=== PATIENT | male | born 1955 | race African-American/Black ===

== ENCOUNTER 2016-07-22 08:14 | Day surgery (SDC) | payer OTHER ==
[2016-07-21 10:47] VITALS: BMI 37.4
[2016-07-22] MEDS ORDERED: PROPOFOL 20 ML ONE ×2 (10:55→10:57)
[2016-07-22] MEDS ORDERED: ceFAZolin SODIUM 1 GM VIAL IVPB ONE (11:10)
[2016-07-22] MEDS ORDERED: ceFAZolin SODIUM 1 GM VIAL ONE (11:17)
[2016-07-22] MEDS ORDERED: LIDOCAINE HCL/PF 2% SDV 5ML VIAL ONE (11:22)
[2016-07-22] MEDS ORDERED: ePHEDrine SULFATE 50 MG/1 ML AMPULE ONE (11:30)
[2016-07-22] MEDS ORDERED: NEOSTIGMINE METHYLSULFATE 0.5 MG/ML - 10 ML MDV ONE (11:44)
[2016-07-22] MEDS ORDERED: oxyCODONE HCL 5 MG TABLET PO PRN (11:50)
--- NOTE | 2016-07-22 11:50 | OP ---
Operative Note - Note: Operative Date: 07/22/16 Pre-Operative Diagnosis: bladder tumor Operation: TURBT Post-Operative Diagnosis: Same as Pre-op Surgeon: Ulisses Zapata Anesthesia: General Specimens Removed: bladder tumor Estimated Blood Loss (mls): 2 Drains & Tubes with Location: 18fr whipple Operative Report Dictated: Yes
[2016-07-22] MEDS ORDERED: ELECTROLYTE-148 SOLN 1,000 ML IV SCH (12:00)
[2016-07-22] MEDS ORDERED: ONDANSETRON 4 MG/2 ML VIAL IVPUSH PRN (12:11)
[2016-07-22] MEDS ORDERED: ACETAMINOPHEN 1000 MG/100 ML VIAL (NON FORMULARY) IVPB ONE (12:12)
[2016-07-22] MEDS ORDERED: LACTATED RINGERS SOLUTION 1,000 ML IV SCH (12:15)
--- NOTE | 2016-07-22 13:26 | OP ---
DATE OF OPERATION: 07/22/2016 PREOPERATIVE DIAGNOSIS: Bladder tumor. POSTOPERATIVE DIAGNOSIS: Bladder tumor. PROCEDURE: Transurethral resection of bladder tumor. 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 Most recent surveillance cystoscopy revealed evidence of bladder tumor recurrence. He was taken to the OR for resection. DESCRIPTION OF PROCEDURE: Patient was taken to the OR, placed supine on the operating table. After cardiac monitoring was administered and general anesthesia established, he was prepped and draped in dorsal lithotomy position. The 26-sheath resectoscope was inserted into the urethra with the visual obturator. Anterior urethra was normal. Prostatic urethra was 3 cm and visually occlusive. The bladder was then entered. There was a rim of erythematous tissue consistent with prior history of CS. At the dome of the bladder encircling what looked like a bladder diverticulum, this tissue was resected in its entirety and then fulgurated until no other areas of erythema were noted. No other lesions were noted. Bilateral ureteral orifices were seen and in normal anatomic position. Resectoscope was then removed, and an 18-Nigerien Barrios was then placed to straight drainage. Clear urine was then retrieved. Patient was awoken from anesthesia and transferred to recovery room in stable condition. There were no complications. Estimated blood loss was minimal. ZITA NUNEZ M.D. [id number]
[2016-07-22 14:02] VITALS: TEMP 98.4
[2016-07-22 14:27] VITALS: PULSE 60
[2016-07-22] MEDS ORDERED: oxyCODONE HCL 5 MG TABLET PO ONE (14:30)
[2016-07-22] MEDS ORDERED: oxyCODONE HCL 5 MG TABLET ONE (14:34)
[2016-07-22 16:33] VITALS: BP 147/74
--- NOTE | 2016-07-26 09:07 | PATH ---
Surgical Pathology Report Patient Name: LIAT GARDUNO [facility]. Rec. #: [id number] /Age/Gender: 1955 (Age: 61) / M Account: [id number] Location: [facility] SURGICAL Taken: 07/22/2016 Received: 07/22/2016 Reported: 07/26/2016 Physicians: Ulisses Zapata M.D. Specimen(s) Received BLADDER TUMOR Clinical History Bladder cancer Transurethral resection of bladder tumor Final Diagnosis BLADDER, TUR: FOCAL FLAT UROTHELIAL CARCINOMA IN SITU ARISING IN A BACKGROUND OF ACUTE AND CHRONIC CYSTITIS WITH MARKED REACTIVE CHANGES AND AREAS OF VASCULAR ECTASIA. NO INVASIVE CARCINOMA IDENTIFIED. Comment: Also see prior specimens [id number] and [id number]. Electronically Signed Ignacio Hoover M.D. Gross Description Received in formalin, labeled "bladder tumor" are 5 ruvalcaba, irregular portions of soft tissue measuring 0.1-0.3 cm. in greatest dimension. The specimens are submitted in toto in one cassette. [facility]/07/22/2016 [facility]/07/22/2016
== END 2016-07-22 15:30 | disposition home or self-care (01) ==
LOC: JASU-SURG 08:14
PROVIDERS: ATTEND Urology
PROC: 0T5B8ZZ Destruction of Bladder, Via Natural or Artificial Opening Endoscopic (ICD-10-PCS; principal; 2016-07-22 09:30)
DX: D09.0 Carcinoma in situ of bladder (principal); N30.20 Other chronic cystitis without hematuria
CPT/HCPCS: 88307-TC; 94760

== ENCOUNTER 2016-12-26 15:34 | Emergency (ER) | payer OTHER ==
[2016-12-26 15:45] VITALS: TEMP 98.5; BMI 36.3
--- NOTE | 2016-12-26 15:55 | PDOC ---
History of Present Illness <Nanci Sidhu - Last Filed: 12/26/16 17:41> - History of Present Illness Initial Comments: 61 year old male with PMH of diabetes and HTN presenting with nausea, abdominal cramping, and elevated blood sugar reading at home to 302. He states that he just woke up this morning feeling "kind of crappy" and had some generalized abdominal pains. He checked his blood sugar and it was 302 at home. He took his Insulin this morning per usual as well. He is on metformin and Lantus 30 every morning and metformin BID. Denies fevers, chills, cdiarrhea, constipation, chest pain, or other symptoms. 12/26/16 16:19 <Dav Armstrong - Last Filed: 12/26/16 18:26> <Clem Pope - Last Filed: 12/26/16 19:36> - General Chief Complaint: Blood Sugar Problem Stated Complaint: BLOOD SUGAR PROBLEM Time Seen by Provider: 12/26/16 15:53 Past History <Nanci Sidhu - Last Filed: 12/26/16 17:41> - Past Medical History Anemia: No Asthma: No Cancer: Yes (bladder) Cardiac Disorders: No CVA: No COPD: No CHF: No Dementia: No Diabetes: Yes (IDDM X 3-4 YEARS) GI Disorders: No Disorders: No HTN: Yes Hypercholesterolemia: Yes Liver Disease: No Seizures: Yes ("YEARS AGO"-OVER 20 YEARS AGO HAD "EPILEPSY", WAS ON MEDS,NO LONGER) Thyroid Disease: No - Surgical History Abdominal Surgery: No Appendectomy: No Cardiac Surgery: No Cholecystectomy: No Lung Surgery: No Neurologic Surgery: No Orthopedic Surgery: Yes (r hip replacement) - Immunization History Immunization Up to Date: Yes - Psycho/Social/Smoking Cessation Hx Anxiety: No Suicidal Ideation: No Smoking History: Current every day smoker Have you smoked in the past 12 months: Yes Number of Cigarettes Smoked Daily: 3 Information on smoking cessation initiated: No 'Breaking Loose' booklet given: 04/08/16 Hx Alcohol Use: No Drug/Substance Use Hx: No Substance Use Type: None Hx Substance Use Treatment: No <Dav Armstrong - Last Filed: 12/26/16 18:26> <Clem Pope - Last Filed: 12/26/16 19:36> - Past Medical History Allergies/Adverse Reactions: Allergies Allergy/AdvReac Type Severity Reaction Status Date / Time No Known Drug Allergies Allergy Verified 12/26/16 15:41 Home Medications: Ambulatory Orders Amlodipine Besylate/Benazepril [Lotrel 5-20 mg Capsule] 1 each PO DAILY Glyburide/Metformin HCl [Glyburide-Metformin 2.5-500 mg] 1 each PO DAILY Insulin (Levemir) [Levemir Flexpen -] 30 units SQ DAILY 07/31/14 Metoprolol Tartrate [Lopressor] 50 mg PO DAILY 07/31/14 Simvastatin [Zocor -] 20 mg PO HS 07/31/14 Aspirin [ASA -] 81 mg PO DAILY@0800 11/02/15 Review of Systems - Review of Systems Constitutional: No: Chills, Diaphoresis, Fever HEENTM: No: Blurred Vision, Double Vision Respiratory: No: Shortness of Breath Cardiac (ROS): No: Chest Pain, Edema : No: Burning, Dysuria Musculoskeletal: No: Back Pain, Joint Pain Integumentary: No: Bruising, Change in Color Neurological: No: Headache <Dav Armstrong - Last Filed: 12/26/16 18:26> *Physical Exam - Vital Signs Last Vital Signs Temp Pulse Resp BP Pulse Ox 98.5 F 56 L 18 122/73 99 12/26/16 15:41 12/26/16 15:41 12/26/16 15:41 12/26/16 15:41 12/26/16 15:41 <Nanci Sidhu - Last Filed: 12/26/16 17:41> - Vital Signs Last Vital Signs Temp Pulse Resp BP Pulse Ox 98.5 F 56 L 18 122/73 99 12/26/16 15:41 12/26/16 15:41 12/26/16 15:41 12/26/16 15:41 12/26/16 15:41 - Physical Exam General Appearance: Yes: Nourished, Appropriately Dressed. No: Apparent Distress HEENT: positive: EOMI, EBONY, Normal ENT Inspection Neck: positive: Trachea midline, Normal Thyroid, Supple. negative: Tender, Rigid Respiratory/Chest: positive: Lungs Clear, Normal Breath Sounds. negative: Chest Tender, Respiratory Distress Cardiovascular: positive: Regular Rhythm, Regular Rate. negative: S1, S2, JVD, Murmur Gastrointestinal/Abdominal: positive: Normal Bowel Sounds, Tender (RUQ and Epigastric tenderness to deep palpation.), Flat, Soft Musculoskeletal: positive: Normal Inspection. negative: CVA Tenderness Integumentary: positive: Normal Color, Dry, Warm Neurologic: positive: Fully Oriented, Normal Mood/Affect, Motor Strength 5/5 <Dav Armstrong - Last Filed: 12/26/16 18:26> - Vital Signs Last Vital Signs Temp Pulse Resp BP Pulse Ox 98.5 F 56 L 18 122/73 99 12/26/16 15:41 12/26/16 15:41 12/26/16 15:41 12/26/16 15:41 12/26/16 15:41 <Clem Pope - Last Filed: 12/26/16 19:36> Procedures - Bedside Ultrasound Bedside Ultrasound: Gallbladder <Nanci Sidhu - Last Filed: 12/26/16 17:41> ED Treatment Course - LABORATORY CBC & Chemistry Diagram: 12/26/16 17:23 12/26/16 17:23 - ADDITIONAL ORDERS Additional order review: 12/26/16 17:23 RBC 4.63 MCV 88.5 MCHC 33.7 RDW 13.6 MPV 8.6 Neutrophils % 48.0 Lymphocytes % 34.4 Monocytes % 11.0 H Eosinophils % 5.6 H Basophils % 1.0 - Medications Given in the ED: ED Medications Discontinued Medications Generic Name Dose Route Start Last Admin Trade Name Freq PRN Reason Stop Dose Admin Sodium Chloride 1,000 ml 12/26/16 16:13 12/26/16 17:25 Normal Saline - IV 12/26/16 16:14 1,000 ml ONCE ONE Administration <Nanci Sidhu - Last Filed: 12/26/16 17:41> - LABORATORY CBC & Chemistry Diagram: 12/26/16 17:23 12/26/16 17:23 <Dav Armstrong - Last Filed: 12/26/16 18:26> - LABORATORY CBC & Chemistry Diagram: 12/26/16 17:23 12/26/16 17:23 - ADDITIONAL ORDERS Additional order review: Laboratory Results 12/26/16 12/26/16 18:50 17:23 Sodium 141 Potassium 4.0 Chloride 109 H Carbon Dioxide 26 Anion Gap 6 L BUN 14 Creatinine 1.3 Creat Clearance w eGFR 55.94 Random Glucose 208 H Calcium 9.0 Total Bilirubin 0.3 D AST 20 ALT 22 Alkaline Phosphatase 124 H Total Protein 6.8 Albumin 3.2 L Urine Color Yellow Urine Appearance Slcloudy Urine pH 5.0 Urine Protein 3+ H Urine Glucose (UA) 3+ H Urine Ketones Negative Urine Blood Negative Urine Nitrite Negative Urine Bilirubin Negative Urine Urobilinogen Negative Ur Leukocyte Esterase Negative Urine RBC 6 Urine WBC 4 Ur Epithelial Cells Rare Hyaline Casts 11 Urine Mucus Rare 12/26/16 17:23 RBC 4.63 MCV 88.5 MCHC 33.7 RDW 13.6 MPV 8.6 Neutrophils % 48.0 Lymphocytes % 34.4 Monocytes % 11.0 H Eosinophils % 5.6 H Basophils % 1.0 - Medications Given in the ED: ED Medications Discontinued Medications Generic Name Dose Route Start Last Admin Trade Name Freq PRN Reason Stop Dose Admin Sodium Chloride 1,000 ml 12/26/16 16:13 12/26/16 17:25 Normal Saline - IV 12/26/16 16:14 1,000 ml ONCE ONE Administration <Clem Pope - Last Filed: 12/26/16 19:36> Medical Decision Making - Medical Decision Making 12/26/16 17:40 focused ED ultrasound RUQ indication abd pain gallbladder scanned in two planes. no wall thickening or edema. contracted appearance. no stones. no pericholecystic fluid. neg sonographic singh's cbd measured 6.2mm wall measured 3.9mm impression: contracted gallbladder. josh/ BARBARA <Nanci Sidhu - Last Filed: 12/26/16 17:41> - Medical Decision Making 61 year old male with PMH of diabetes presenting with self reported sugar of 300, nausea and abdominal pain. Patient doesn't appear to have signs of DKA or HHS given exam and low reported glucose. Will verify glucose with CMP and draw CBC, lipase as well. Will give one liter and perform bedside US 12/26/16 19:23 Gluose only 200. UA pending. If UA clear, then can send home. NBedisde US not showing stones. Had a clear CT from a few weeks ago, so no need to repeat. Patient signed out to DR. Pope at 19:00 <Dav Armstrong - Last Filed: 12/26/16 18:26> *DC/Admit/Observation/Transfer <Nanci Sidhu - Last Filed: 12/26/16 17:41> - Discharge Dispostion Admit: No <Dav Armstrong - Last Filed: 12/26/16 18:26> - Discharge Dispostion Admit: No <Clem Pope - Last Filed: 12/26/16 19:36> Diagnosis at time of Disposition: Hyperglycemia, Lower abdominal pain - Discharge Dispostion Disposition: HOME Condition at time of disposition: Improved - Referrals Referrals: Kinjal Nolan [Primary Care Provider] - - Patient Instructions Printed Discharge Instructions: DI for Hyperglycemia -- Adult Additional Instructions: You were seen for high blood sugar, nausea and abdominal pain. We believe that your stomach was hurting because of the high blood sugar. Please make sure to take your insulin and avoid foods high in sugars. Please follow up with your PCP for adjustments to your insulin regimen if you continue to experience the same problems. Please return to the ED if you have the same symptoms, nausea, vomiting, diarrhea, or fevers.
[2016-12-26] MEDS ORDERED: SODIUM CHLORIDE 0.9% 1000 ML INFUS.BAG IV ONE (16:13)
--- NOTE | 2016-12-26 16:48 | PDOC ---
Attending Attestation - Resident Resident Name: Dav Armstrong - ED Attending Attestation I have performed the following: I have examined & evaluated the patient, The case was reviewed & discussed with the resident, I agree w/resident's findings & plan, Exceptions are as noted - Medical Decision Making 12/26/16 16:45 61 yo F M h/o bladder CA , and DM on insulin here wtih c/o abd pain, nausea, and high sugars. no f/c no vomiting. no urinary complaints. no flank pain. not sure why sugar high . was feeling off today so check sugar was elevated. no change to bm. last was today normal. on exam awake alert lungs clear heart rrr no mrg. abd soft RUQ ttp, RLQ ttp. no rebound no guarding no cva tenderness. differential: cholelithiasis, cholecystiis, pancreatitis gastritis, dehydration , dka hyperosmolar hyperglycemia. plan labs ivf, bedside us gb. possible ct ua. ekg <Nanci Sidhu - Last Filed: 12/26/16 16:45> - HPI HPI: 12/26/16 16:48 The Patient is a 61 yo male with a significant past medical history of HTN, hypolymphadema, and diabetes who presents to the ED with feeling of hyperglycemia. He reports nausea and chills but denies vomiting, fever, urinary problems and SOB. He states having compliant with insulin medication this morning. He denies any diet excursions with no other complaints. - Physicial Exam PE: 12/26/16 16:49 GENERAL: Awake, alert, and fully oriented, in no acute distress HEAD: No signs of trauma EYES: PERRLA, EOMI, sclera anicteric, conjunctiva clear ENT: Auricles normal inspection, nares patent, Moist mucosa NECK: Normal ROM, supple, no lymphadenopathy, JVD, or masses LUNGS: Breath sounds equal, clear to auscultation bilaterally. No wheezes, and no crackles HEART: Regular rate and rhythm, normal S1 and S2, no murmurs, rubs or gallops ABDOMEN: + RUQ tenderness, RLQ tenderness. No CVA tenderness Soft, nontender, normoactive bowel sounds. No guarding, no rebound. No masses No CVA tenderness. EXTREMITIES: Warm and well perfused. Normal range of motion, no edema. No clubbing or cyanosis. No cords, erythema, or tenderness NEUROLOGICAL: Normal speech SKIN: Warm, Dry, normal turgor, no rashes or lesions noted. - Medical Decision Making 12/26/16 16:49 Documentation prepared by Arthur Walter, acting as medical assisting program director for Nanci Sidhu MD. <Arthur Walter - Last Filed: 12/26/16 16:49>
[2016-12-26 17:28] LABS: EOSINOPHIL 5.6 % (0-4.5); MCH 29.8 pg (25.7-33.7); MCHC 33.7 g/dl (32.0-35.9); MEAN CELL VOLUME 88.5 fl (80-96); MEAN PLT VOLUME 8.6 fl (7.5-11.1); PLATELET COUNT 236 K/MM3 (134-434); RDW 13.6 % (11.9-15.9); WHITE BLOOD COUNT 8.3 K/mm3 (4.0-10.0)
[2016-12-26 17:54] LABS: ALBUMIN 3.2 g/dl (3.4-5.0); ANION GAP 6 (8-16); BILIRUBIN,TOTAL 0.3 mg/dL (0.2-1.0); CO2 26 mmol/L (21-32); CREATININE 1.3 mg/dL (0.7-1.3); GLUCOSE,RANDOM 208 mg/dL (74-106); SGPT/ALT 22 U/L (12-78); TOT PROT 6.8 g/dl (6.4-8.2)
[2016-12-26 17:55] LABS: ALK PHOS 124 U/L (45-117)
[2016-12-26 17:56] LABS: SGOT/AST 20 U/L (15-37)
[2016-12-26 19:20] LABS: URINE APPEARANCE SLCLOUDY; URINE BILIRUBIN NEGATIVE (NEGATIVE); URINE BLOOD NEGATIVE (NEGATIVE); URINE COLOR YELLOW; URINE GLUCOSE (UA) 3+ (NEGATIVE); URINE KETONE NEGATIVE (NEGATIVE); URINE LEUK ESTERASE NEGATIVE (NEGATIVE); URINE NITRITE NEGATIVE (NEGATIVE); URINE UROBILINOGEN NEGATIVE mg/dL (0.2-1.0)
[2016-12-26 19:25] LABS: URINE PROTEIN 3+ (NEGATIVE)
[2016-12-26 19:26] LABS: URINE HYALINE CAST 11 /lpf; URINE MUCUS RARE; URINE RBC 6 /hpf (0-3); URINE WBC 4 /hpf (3-5)
[2016-12-26 20:16] VITALS: BP 107/48; PULSE 89
--- NOTE | 2016-12-27 11:25 | EKG ---
Test Reason : Blood Pressure : / mmHG Vent. Rate : 052 BPM Atrial Rate : 052 BPM P-R Int : 180 ms QRS Dur : 094 ms QT Int : 462 ms P-R-T Axes : 038 -05 -08 degrees QTc Int : 429 ms SINUS BRADYCARDIA WITH SINUS ARRHYTHMIA ABNORMAL ECG WHEN COMPARED WITH ECG OF 18-DEC-2016 12:11, NO SIGNIFICANT CHANGE WAS FOUND Confirmed by ANASTACIO VELAZQUEZ MD ([id number]) on 12/27/2016 11:25:19 AM Referred By: Confirmed By:ANASTACIO VELAZQUEZ MD
== END 2016-12-26 20:41 | disposition home or self-care (01) ==
LOC: JER 15:34
DX: E11.65 Type 2 diabetes mellitus with hyperglycemia (principal); Z79.4 Long term (current) use of insulin; Z79.84 Long term (current) use of oral hypoglycemic drugs; I10 Essential (primary) hypertension; E78.00 Pure hypercholesterolemia, unspecified; Z86.69 Personal history of other diseases of the nervous system and sense organs; Z85.51 Personal history of malignant neoplasm of bladder
CPT/HCPCS: 36415; 80053; 81003; 81015; 85025; 93005; 93010; 99283-25

== ENCOUNTER 2017-07-21 05:15 | Day surgery (SDC) | payer OTHER ==
[2017-07-20 09:43] VITALS: BMI 32.3
[2017-07-21] MEDS ORDERED: LIDOCAINE 1%/EPI 1:100000 (20 ML MULTI DOSE VIAL) ONE (11:38)
[2017-07-21] MEDS ORDERED: MIDAZOLAM HCL 2 MG/2 ML SINGLE DOSE VIAL ONE ×2 (12:21→12:31)
[2017-07-21] MEDS ORDERED: ceFAZolin SODIUM 1 GM VIAL ONE (12:31)
[2017-07-21] MEDS ORDERED: ceFAZolin SODIUM 1 GM VIAL IVPB ONE (12:31)
[2017-07-21] MEDS ORDERED: LIDOCAINE 1%/EPI 1:100000 (20 ML MULTI DOSE VIAL) IJ ONE (12:41)
[2017-07-21] MEDS ORDERED: BACITRACIN 50,000 UNITS VIAL TP ONE (12:45)
[2017-07-21] MEDS ORDERED: PROPOFOL 20 ML ONE (12:56)
[2017-07-21] MEDS ORDERED: LIDOCAINE HCL 1%, 10 MG/ML (20ML VIAL) ONE (12:57)
[2017-07-21] MEDS ORDERED: oxyCODONE HCL 5 MG TABLET PO PRN ×2 (13:08→13:30)
[2017-07-21] MEDS ORDERED: ONDANSETRON 4 MG/2 ML VIAL IVPUSH PRN (13:08)
[2017-07-21] MEDS ORDERED: LIDOCAINE HCL 1%, 10 MG/ML (20ML VIAL) INF ONE (13:10)
[2017-07-21] MEDS ORDERED: LACTATED RINGERS SOLUTION 1,000 ML IV SCH (13:15)
--- NOTE | 2017-07-21 13:32 | OP ---
Operative Note - Note: Operative Date: 07/21/17 Pre-Operative Diagnosis: urinary freq/urg Operation: full interstim implant Post-Operative Diagnosis: Same as Pre-op Surgeon: Ulisses Zapata Anesthesia: General Estimated Blood Loss (mls): 1
--- NOTE | 2017-07-21 13:56 | OP ---
DATE OF OPERATION: 07/21/2017 PREOPERATIVE DIAGNOSIS: Urinary frequency and urgency with urge incontinence. POSTOPERATIVE DIAGNOSIS: Urinary frequency and urgency with urge incontinence. PROCEDURE: Full InterStim implant. SURGEON: Ulisses Zapata MD INDICATION: Patient is a 61-year-old male with overactive bladder. We have held medications. Also, patient has history of bladder cancer and has not had any recent recurrence. After reviewing treatment options for the overactive bladder, decided to undergo InterStim implant. He did well with a PNE test in the office. DESCRIPTION OF PROCEDURE: After informed consent was obtained, patient was taken to the OR and placed prone on the operating room table. The back was prepped and draped in standard surgical fashion using fluoroscopic guidance, both the right and left S3 foramen were pierced with Finder needles. Both were tested. The left side had better motor and sensory responses, so this was kept in place. Fluoroscopy confirmed placement of the S3 foramen and excellent motor and sensory response is received from the left Finder needle. At this point, then, the trocar with the obturator was advanced over the needle. The obturator with the trocar was removed, and then the wire tined leads was advanced until 3 of the tined leads were below the bone of the S3 foramen. Each lead was tested, and appropriate sensory motor responses were achieved. At this point, a pocket was created also on the patient's left side several cms in size using number 15 blade and then through the subcutaneous tissue but above muscle. The wire was then tunneled from the puncture site to the pocket. The leads were cleaned, and then the wire was attached to the battery pack and screwed in place. The battery pack was then buried in the pocket. The battery pack was interrogated with appropriate responses. Attention was then turned to the wound closure. The wound was closed in 2 layers with 3-0 chromic followed by 4-0 Monocryl, and then internal monitor was placed. The patient was then woken from anesthesia and transferred to the recovery room in stable condition. There were no complications. Estimated blood loss was minimal. Josesito [id number]
[2017-07-21] MEDS ORDERED: DEXTROSE 5%-0.45% SALINE 1,000 ML IV SCH (14:00)
[2017-07-21] MEDS ORDERED: oxyCODONE HCL 5 MG TABLET ONE (14:46)
[2017-07-21 15:33] VITALS: BP 148/85; PULSE 52; TEMP 98.1
== END 2017-07-21 15:34 | disposition home or self-care (01) ==
LOC: JASU-SURG 05:15
PROVIDERS: ATTEND Urology
PROC: 01HY0MZ Insertion of Neurostimulator Lead into Peripheral Nerve, Open Approach (ICD-10-PCS; 2017-07-21)
PROC: 4B01XVZ Measurement of Peripheral Nervous Stimulator, External Approach (ICD-10-PCS; 2017-07-21)
PROC: 0JH70BZ Insertion of Single Array Stimulator Generator into Back Subcutaneous Tissue and Fascia, Open Approach (ICD-10-PCS; principal; 2017-07-21 12:00)
DX: N39.41 Urge incontinence (principal); R35.0 Frequency of micturition; N32.81 Overactive bladder; Z85.51 Personal history of malignant neoplasm of bladder; I10 Essential (primary) hypertension; E11.9 Type 2 diabetes mellitus without complications; E66.9 Obesity, unspecified
CPT/HCPCS: 64581; 64590; 95971; L8680; L8686; 76000-TC-FY; 82962; 94760

== ENCOUNTER 2018-04-16 15:18 | Emergency (ER) | payer OTHER ==
[2018-04-16 15:40] VITALS: BMI 40.1
--- NOTE | 2018-04-16 16:27 | PDOC ---
History of Present Illness - General Chief Complaint: Edema Stated Complaint: SWELLING Time Seen by Provider: 04/16/18 16:04 History Source: Patient, Spouse, Old Records Exam Limitations: No Limitations - History of Present Illness Initial Comments: 04/16/18 16:21 Pt is a 62yo M with PMH of DM, HTN, HLD, CKD bladder ca presenting to ED with complaints of bilateral leg and hand edema for the past month. Pt said he noticed swelling in his legs first. 2 weeks ago his medication was changed from amlodipine to hydralazine because of the edema. He admits to SOB with exertion and weight gain. He denies chest pain, fever, chills, cough, painful calves, lightheadedness, syncope, urinary frequency, urinary symptoms, abdominal pain, n /v/d. PMD: Febr[place] Uro: Benny Card: [place] Neph: Sonido PMH: see hpi PSH: hip replacement, Social: 2ppd Allergies: nkda Past History - Past Medical History Allergies/Adverse Reactions: Allergies Allergy/AdvReac Type Severity Reaction Status Date / Time No Known Drug Allergies Allergy Verified 04/16/18 15:41 Home Medications: Ambulatory Orders Amlodipine Besylate/Benazepril [Lotrel 5-20 mg Capsule] 10 each PO DAILY Metoprolol Tartrate [Lopressor] 100 mg PO BID 07/31/14 Aspirin [ASA -] 81 mg PO DAILY@0800 11/02/15 Atorvastatin Ca [Lipitor] 10 mg PO HS 07/20/17 Enalapril Maleate [Vasotec -] 10 mg PO DAILY 07/20/17 Insulin Degludec [Tresiba Flextouch U-100] 35 unit SQ DAILY 07/20/17 Metformin HCl [Metformin HCl ER] 1,000 mg PO BID 07/20/17 Pioglitazone HCl 30 mg PO DAILY 07/20/17 Anemia: No Asthma: No Cancer: Yes (bladder) Cardiac Disorders: No CVA: No COPD: No CHF: No Dementia: No Diabetes: Yes (IDDM X 3-4 YEARS) GI Disorders: No Disorders: No HTN: Yes Hypercholesterolemia: Yes Liver Disease: No Seizures: Yes ("YEARS AGO"-OVER 20 YEARS AGO HAD "EPILEPSY", WAS ON MEDS,NO LONGER) Thyroid Disease: No - Surgical History Abdominal Surgery: No Appendectomy: No Cardiac Surgery: No Cholecystectomy: No Lung Surgery: No Neurologic Surgery: No Orthopedic Surgery: Yes (r hip replacement) - Immunization History Immunization Up to Date: Yes - Suicide/Smoking/Psychosocial Hx Smoking History: Never smoked Have you smoked in the past 12 months: No Number of Cigarettes Smoked Daily: 2 Information on smoking cessation initiated: No 'Breaking Loose' booklet given: 07/21/17 Hx Alcohol Use: No Drug/Substance Use Hx: No Substance Use Type: None Hx Substance Use Treatment: No Review of Systems - Review of Systems Constitutional: Yes: Other (weight gain). No: Chills, Fever, Night Sweats HEENTM: No: Nose Congestion, Throat Pain, Throat Swelling, Mouth Pain Respiratory: No: Cough, SOB with Exertion, Stridor, Wheezing, Hemoptysis Cardiac (ROS): Yes: See HPI, Edema. No: Chest Pain, Lightheadedness, Palpitations, Syncope ABD/GI: No: Constipated, Diarrhea, Nausea, Vomiting : No: Burning, Dysuria, Frequency, Flank Pain, Hematuria, Urgency Musculoskeletal: No: Back Pain, Joint Pain, Muscle Weakness Integumentary: No: Symptoms Reported Neurological: No: Headache, Numbness, Tingling, Weakness *Physical Exam - Vital Signs Last Vital Signs Temp Pulse Resp BP Pulse Ox 98.1 F 59 L 16 179/88 H 100 04/16/18 15:36 04/16/18 15:36 04/16/18 15:36 04/16/18 15:36 04/16/18 15:36 - Physical Exam General Appearance: Yes: Nourished, Appropriately Dressed. No: Apparent Distress HEENT: positive: EOMI, EBONY, Normal ENT Inspection, Other (no angioedema) Neck: positive: Supple. negative: Lymphadenopathy (R), Lymphadenopathy (L) Respiratory/Chest: positive: Lungs Clear, Normal Breath Sounds. negative: Labored Respiration, Paradoxal Breathing, Crackles, Rales, Rhonchi Cardiovascular: positive: Regular Rhythm, Regular Rate, S1, S2. negative: Edema , JVD, Murmur Vascular Pulses: Carotid (R): 2+, Carotid (L): 2+, Dorsalis-Pedis (R): 1+, Doralis-Pedis (L): 1+ Gastrointestinal/Abdominal: positive: Normal Bowel Sounds, Soft, Protuberent. negative: Rebound, Tenderness, Hernia Musculoskeletal: negative: CVA Tenderness, Decreased Range of Motion Extremity: positive: Normal Capillary Refill, Pedal Edema, Swelling (bilateral pitting edema to mid-calf. ), Other (bilateral hand edema, non-pitting). negative: Cyanosis, Calf Tenderness, Erythema Integumentary: positive: Normal Color, Dry, Warm Neurologic: positive: beta tester II-XII NML intact, Fully Oriented, Alert, Normal Mood/ Affect, Normal Response, Motor Strength 5/5 Moderate Sedation - Procedure Monitoring Vital Signs: Procedure Monitoring Vital Signs Temperature 98.1 F 04/16/18 15:36 Pulse Rate 59 L 04/16/18 15:36 Respiratory Rate 16 04/16/18 15:36 Blood Pressure 179/88 H 04/16/18 15:36 O2 Sat by Pulse Oximetry (%) 100 04/16/18 15:36 ED Treatment Course - LABORATORY CBC & Chemistry Diagram: 04/16/18 17:17 04/16/18 19:44 Medical Decision Making - Medical Decision Making 04/16/18 16:27 Pt is a 62yo M with PMH of DM, HTN, HLD, CKD bladder ca presenting to ED with complaints of bilateral leg and hand edema for the past month. Pt said he noticed swelling in his legs first. 2 weeks ago his medication was changed from amlodipine to hydralazine because of the edema. He admits to SOB with exertion and weight gain. He denies chest pain, fever, chills, cough, painful calves, lightheadedness, syncope, urinary frequency, urinary symptoms, abdominal pain, n /v/d. Vitals: hypertensive (179/88), HR 59 PE: bilateral pitting edema of LE to midcalf, non-tender. slight hand swelling, non-tender. normal breath sounds. DDx includes but not limited to DVT, CHF, ARF, lymphadenopathy, venous compression, medication SE, infectious process i.e cellulitis, nephrotic syndrome -Pt has history of malignancy, has had symptoms for 1 month, feels short of breath with exertion, could have dvt/pe however pt is not tachycardic, not tachypneic and saturating well on RA. Will do DVT Study. bnp, cxr, ekg and basic labs ordered. 04/16/18 19:21 CBC wnl. EKG: sinus rosa m. no diana or depressions u/s negative for DVT. cxr pending. chemistries hemolyzed. waiting for new results. 04/16/18 20:13 CXR does not show congestion or any acute process. UA shows 2+ protein in urine CMP shows Cr 2.1, 2.2 in January of this year, 1.5 in July of this year. h/x of ckd. is seeing Dr. Head. Pt is otherwise stable, can be dc home. has appropriate follow up. *DC/Admit/Observation/Transfer Diagnosis at time of Disposition: Swelling - Discharge Dispostion Disposition: HOME Condition at time of disposition: Good Decision to Admit order: No - Referrals Referrals: Castro Gloria PA [Primary Care Provider] - Yousuf Zambrano MD [Staff Physician] - Nila Head MD [Staff Physician] - - Patient Instructions Additional Instructions: You were seen here today for swelling/edema of your legs and hands. You have protein in your urine and your kidney function test show an elevation in an enzyme, but it was similar to your test done in January. I recommend that you see your primary care doctor and your fiber design engineer for further evaluation and management of your symptoms. You might need some more medication adjustments. Keep your legs elevated at night and when you are sitting. Make sure you check your blood pressure. Come back to the emergency room if swelling gets worse, you feel short of breath , you have chest pain, you feel like your heart is beating fast, you pass out, you notice a rash or if any new concerning symptom develops. Thank you - Post Discharge Activity
[2018-04-16 18:05] LABS: EOS % 3.8 % (0-4.5); HEMATOCRIT 37.8 % (35.4-49); LYMPH % 32.3 % (8-40); MCH 31.7 pg (25.7-33.7); MCHC 34.4 g/dl (32.0-35.9); MEAN CELL VOLUME 92.2 fl (80-96); MEAN PLT VOLUME 9.9 fl (7.5-11.1); MONO % 10.5 % (3.8-10.2); NEUT % 52.4 % (42.8-82.8); PLATELET COUNT 217 K/MM3 (134-434); RDW 15.1 % (11.9-15.9)
[2018-04-16 19:45] LABS: URINE APPEARANCE CLEAR; URINE BILIRUBIN NEGATIVE (<2.0 mg/dL); URINE COLOR STRAW; URINE GLUCOSE (UA) NEGATIVE (NEGATIVE); URINE KETONE NEGATIVE (NEGATIVE); URINE LEUK ESTERASE NEGATIVE (NEGATIVE); URINE NITRITE NEGATIVE (NEGATIVE); URINE PROTEIN 2+ (NEGATIVE); URINE UROBILINOGEN NEGATIVE mg/dL (0.2-1.0)
[2018-04-16 19:48] LABS: EPI CELLS RARE /HPF (FEW); URINE BACTERIA RARE /hpf (NONE SEEN); URINE HYALINE CAST 1 /lpf; URINE MUCUS RARE
[2018-04-16 20:35] LABS: MAGNESIUM 2.2 mg/dL (1.8-2.4); N-TERMINAL BNP 584.1 pg/ml (5-125)
[2018-04-16 20:55] LABS: CREATININE 2.1 mg/dL (0.55-1.3)
[2018-04-16 20:56] LABS: ALBUMIN 3.2 g/dl (3.4-5.0); CO2 20 mmol/L (21-32)
[2018-04-16 21:23] VITALS: BP 160/86; PULSE 64; TEMP 98.2
[2018-04-16 21:23] LABS: ALK PHOS 108 U/L (45-117); ANION GAP 10 MMOL/L (8-16); BILIRUBIN,TOTAL 0.2 mg/dL (0.2-1); BLOOD UREA NITROGEN 27 mg/dL (7-18); CALCIUM 8.6 mg/dL (8.5-10.1); CHLORIDE 112 mmol/L (98-107); GLUCOSE,RANDOM 68 mg/dL (74-106); POTASSIUM 4.4 mmol/L (3.5-5.1); SGOT/AST 29 U/L (15-37); SGPT/ALT 25 U/L (13-61); SODIUM 142 mmol/L (136-145); TOT PROT 7.3 g/dl (6.4-8.2)
--- NOTE | 2018-04-17 01:28 | PDOC ---
Attending Attestation - Resident Resident Name: Fernanda Reagan - ED Attending Attestation I have performed the following: I have examined & evaluated the patient, The case was reviewed & discussed with the resident, I agree w/resident's findings & plan, Exceptions are as noted - HPI HPI: 04/17/18 01:26 62 yo male p/w several weeks of hand swelling. Recently had his blood pressure medications changed He also states he has lower leg edema.he does takes "water pills" - Physicial Exam PE: 04/17/18 01:27 wnwd 62 yo male in no acute distress head ncat neck supple,no bruits lungs cta b/l cvs [id number] abd protuberant,no rebound,no guarding ext pitting edema in lower legs,no cellulitis -there is minimal hand swelling, Hands are warm,good ulnar and radial pulses, sensation intact,cap refill < 2 seconds neuro axox3 ,ambulatory - Medical Decision Making 04/17/18 01:32 ultrasound was NEGATIVE for DVT 04/17/18 01:33 cbc normal chemistry reviewed no evdence of infection,no clot imp mild hand swelling/ possibly secondary to new medication plan pt to followup with [facility] primary physician
--- NOTE | 2018-04-17 15:21 | EKG ---
Test Reason : Blood Pressure : / mmHG Vent. Rate : 051 BPM Atrial Rate : 051 BPM P-R Int : 158 ms QRS Dur : 072 ms QT Int : 460 ms P-R-T Axes : 035 005 -14 degrees QTc Int : 423 ms SINUS BRADYCARDIA CANNOT RULE OUT ANTERIOR INFARCT (CITED ON OR BEFORE 16-JUL-2017) T WAVE ABNORMALITY, CONSIDER LATERAL ISCHEMIA ABNORMAL ECG WHEN COMPARED WITH ECG OF 16-JUL-2017 09:53, NO SIGNIFICANT CHANGE WAS FOUND Confirmed by ANASTACIO VELAZQUEZ MD ([id number]) on 04/17/2018 3:20:33 PM Referred By: Confirmed By:ANASTACIO VELAZQUEZ MD
== END 2018-04-16 21:23 | disposition home or self-care (01) ==
LOC: JER 15:18
DX: M79.89 Other specified soft tissue disorders (principal); E11.9 Type 2 diabetes mellitus without complications
CPT/HCPCS: 36415; 71046-TC-FY; 80053; 81003; 81015; 83735; 83880; 84484; 85025; 93005; 93010; 93970-TC; 99282-25

== ENCOUNTER 2018-08-02 12:30 | Inpatient (IN) | payer OTHER ==
--- NOTE | 2018-08-02 14:35 | PDOC ---
History of Present Illness - General Chief Complaint: Constipation Stated Complaint: CONSTIPATION Time Seen by Provider: 08/02/18 13:47 - History of Present Illness Initial Comments: Osmani Gonsales is a 63yo man with a PMH of DM, HTN, HLD, CKD, bladder CA, 10 days POD s/p "prostate removal" at [place] who presents reporting constipation. He states that he has not had a normal BM since his surgery, and he feels that his abdomen is becoming increasingly distended. He contacted his surgeon, and he was told to stop taking his Percocet as that could be contributing. He was also told to continue taking the docusate prescribed on his hospital discharge and to add Miralax. He has also tried mineral oil daily, several suppositories, and an enema at home without significant results. He states that he is still passing gas "a little bit" and has had very small bowel movements, but the constipation does not seem to be improving over time. He denies fever, chills, or systemic symptoms. His states that during the surgery it was discovered that "his colon was attached to his bladder" and also that he had diverticulosis ; however, they report there was no manipulation or surgery involving the bladder or colon. Mr Gonsales notes that he has been taking all of his regular medications as prescribed as well, but he has noticed increased BLE edema since his surgery. He has had a poor appetite, but he has been drinking Ensure to supplement his meals. He denies any nausea or vomiting. Mr Gonsales has been in contact with his surgeon regarding the constipation, and it was recommended that he present to the ED for evaluation to make sure there was not an obstruction. Past History - Past Medical History Allergies/Adverse Reactions: Allergies Allergy/AdvReac Type Severity Reaction Status Date / Time No Known Drug Allergies Allergy Verified 08/02/18 12:34 Home Medications: Ambulatory Orders Amlodipine Besylate/Benazepril [Lotrel 5-20 mg Capsule] 10 each PO DAILY Metoprolol Tartrate [Lopressor] 100 mg PO BID 07/31/14 Aspirin [ASA -] 81 mg PO DAILY@0800 11/02/15 Atorvastatin Ca [Lipitor] 10 mg PO HS 07/20/17 Enalapril Maleate [Vasotec -] 10 mg PO DAILY 07/20/17 Insulin Degludec [Tresiba Flextouch U-100] 35 unit SQ DAILY 07/20/17 Pioglitazone HCl 30 mg PO DAILY 07/20/17 metFORMIN HCL [Metformin HCl ER] 1,000 mg PO BID 07/20/17 Anemia: No Asthma: No Cancer: Yes (bladder, prostate) Cardiac Disorders: No CVA: No COPD: No CHF: No Dementia: No Diabetes: Yes (IDDM X 3-4 YEARS) GI Disorders: No Disorders: No HTN: Yes Hypercholesterolemia: Yes Liver Disease: No Seizures: Yes ("YEARS AGO"-OVER 20 YEARS AGO HAD "EPILEPSY", WAS ON MEDS,NO LONGER) Thyroid Disease: No - Surgical History Abdominal Surgery: No Appendectomy: No Cardiac Surgery: No Cholecystectomy: No Lung Surgery: No Neurologic Surgery: No Orthopedic Surgery: Yes (r hip replacement) - Immunization History Immunization Up to Date: Yes - Suicide/Smoking/Psychosocial Hx Smoking History: Former smoker Have you smoked in the past 12 months: Yes Number of Cigarettes Smoked Daily: 2 If you are a former smoker, when did you quit?: 4 months ago Information on smoking cessation initiated: No 'Breaking Loose' booklet given: 07/21/17 Hx Alcohol Use: No Drug/Substance Use Hx: No Substance Use Type: None Hx Substance Use Treatment: No Review of Systems - Review of Systems Comments:: General: No fevers, no chills, +poor appetite, no malaise HEENT: No changes in vision, no changes in hearing, no congestion, no sore throat CV: No chest pain, no palpitations, +BLE edema Pulm: No SOB, no cough, no wheezing GI: No nausea or vomiting, +constipation (very small BM), +flatus, +bloating : +s/p prostate surgery, +catheter Musc: No back pain, no joint swelling, no recent injury Skin: No rash, no lesions, no erythema Endo: No excessive thirst, no heat/cold intolerance Heme: No unusual bruising or bleeding, no swollen glands Neuro: No syncope, no numbness/tingling, no focal weakness Vasc: No claudication Psych: No recent change in mood, no SI or HI *Physical Exam - Vital Signs Last Vital Signs Temp Pulse Resp BP Pulse Ox 98.6 F 62 18 166/74 99 08/02/18 12:34 08/02/18 12:34 08/02/18 12:34 08/02/18 12:34 08/02/18 12:34 - Physical Exam Comments: General: Comfortable, no acute distress HEENT: PERRL, EOMI, MMM, voice normal, normal neck ROM Cards: RRR, no murmur appreciated Pulm: Comfortable on room air, clear to auscultation bilaterally Abd: Moderately distended, TTP in b/l lower abdomen, +BS : No CVA tenderness. Catheter in place Rectal: Deferred Ext: Atraumatic. 2+ BLE edema. ROM intact. Vasc: Extremities WWP. Skin: Normal color, no rashes or lesions Neuro: A&Ox3, CN grossly intact, normal speech, motor/sensory grossly intact and symmetric Psych: Mood appropriate to situation ED Treatment Course - LABORATORY CBC & Chemistry Diagram: 08/02/18 16:00 08/02/18 17:20 Medical Decision Making - Medical Decision Making 08/02/18 14:23 Osmani Gonsales is a 63yo man with a PMH of DM, HTN, HLD, CKD, bladder CA, 10 days POD s/p "prostate removal" at [place] who presents reporting constipation and worsening abdominal distension since his surgery despite using daily Miralax , docusate, mineral oil, and several suppositories and an enema. His surgeon recommended being seen in the ED. - Pt in [facility], will need rectal exam - Ddx most likely ilius v partial obstruction, unlikely complete obstruction as he still has flatus and very small stools and no n/v, simple constipation possibly secondary to opiate use. No fever, chills, n/v or systemic symptoms suggesting infectious cause - Reports inc BLE edema, poor appetite, inc fluid intake. Will check electrolytes as a contributing factor - May need imaging 08/02/18 15:08 - Following discussion with Dr Boyer and review of previous labs, will order CT abd/pelvis without contrast - Attempted to reach pt's urologist, Dr Juan Jose Kemp ([phone]). Message left w/ office for call back 08/02/18 16:09 - Multiple attempts to place IV including US-guided without success, including 2x attempts by Dr Colin and myself 08/02/18 17:32 - Rectal exam completed. No lesions or blood, normal tone, soft stool in vault - IV placed by Dr Boyer. Could not draw labs - 1L NS bolus due to likely dehydration given difficulty drawing blood - Pt to CT 08/02/18 20:13 - CT indicates sigmoid diverticulitis. Only mild stool burden, no significant constipation noted. - Ordering cipro/flagyl - Will discuss with pt; may need obs depending on level of discomfort. Discussed with Diana Boyer and Lavon. Amanda Ruelas PGY1 *DC/Admit/Observation/Transfer Diagnosis at time of Disposition: Diverticulitis - Discharge Dispostion Decision to Admit order: Yes - Referrals - Patient Instructions - Post Discharge Activity
[2018-08-02 16:14] LABS: BASO % 1.1 % (0-2.0); EOS % 13.3 % (0-4.5); HEMATOCRIT 28.4 % (35.4-49); HEMOGLOBIN 9.2 GM/dL (11.7-16.9); LYMPH % 20.9 % (8-40); MCH 30.1 pg (25.7-33.7); MCHC 32.3 g/dl (32.0-35.9); MEAN CELL VOLUME 93.1 fl (80-96); MEAN PLT VOLUME 8.6 fl (7.5-11.1); MONO % 8.4 % (3.8-10.2); NEUT % 56.3 % (42.8-82.8); PLATELET COUNT 456 K/MM3 (134-434); RBC 3.05 M/mm3 (4.00-5.60); WHITE BLOOD COUNT 11.6 K/mm3 (4.0-10.0)
[2018-08-02] MEDS ORDERED: SODIUM CHLORIDE 0.9% 500 ML INFUS.BAG IV ONE (17:10)
--- NOTE | 2018-08-02 18:26 | PDOC ---
Attending Attestation - Resident Resident Name: SurajAmanda - ED Attending Attestation I have performed the following: I have examined & evaluated the patient, The case was reviewed & discussed with the resident, I agree w/resident's findings & plan, Exceptions are as noted - HPI HPI: 08/02/18 18:28 The patient is a 63 year old male with a significant past medical history of DM , HTN, HLD, CKD, bladder CA presenting to ED with complaints of constipation and abdominal cramping since having a prostate removal surgery 10 days ago at [place]. He states he was given oxycodone and a stool softener after discharge which he was taking. He states he recently started using miralax and mineral oil without relief. He states his abdomen feels firm and crampy today. He reports a couple episodes of very small stools, but denies any normal BMs. Denies CP, SOB, headache, focal weakness/numbness, urinary sxs. Social Hx: 1/2 ppd tobacco smoker Allergies: nkda PMD: Faizan Urologist: Benny Public Health Assistant: [place] Nephro: Sonido - Physicial Exam PE: 08/02/18 18:29 GENERAL: Awake, alert, and fully oriented, in no acute distress. Very pleasant. EYES: PERRLA, EOMI, sclera anicteric, conjunctiva clear ENT: Oropharynx clear without exudates. Moist mucosa NECK: Normal ROM, supple, no lymphadenopathy, JVD, or masses LUNGS: Breath sounds equal, clear to auscultation bilaterally. No wheezes, and no crackles HEART: Regular rate and rhythm, normal S1 and S2, no murmurs, rubs or gallops ABDOMEN: Soft, diffusely tender, normoactive bowel sounds. No guarding, no rebound. No masses EXTREMITIES: Normal range of motion, no edema. No cords, erythema, or tenderness NEUROLOGICAL: Normal speech, cranial nerves intact, equal strength and sensation b/l SKIN: Warm, Dry, normal turgor, no rashes or lesions noted. - Medical Decision Making 08/02/18 18:34 63yo M recent prostate resection presents to the ED with constipation and abd pain. Pt has indwelling whipple in place. Vitals unremarkable Exam with diffuse abd ttp DDx includes but not limited to ileus vs obstruction vs constipation Due to CKD, will get CTAP non con, UA, check labs, and reassess 08/02/18 19:00 W/u pending, case signed out to overnight attending for further mgmt/dispo
[2018-08-02] MEDS ORDERED: CIPROFLOXACIN 400 MG/D5W 400 MG/200 ML IVPB IVPB ONE (20:12)
[2018-08-02 20:26] LABS: ALBUMIN 2.7 g/dl (3.4-5.0); ALK PHOS 106 U/L (45-117); ANION GAP 7 MMOL/L (8-16); BILIRUBIN,TOTAL 0.1 mg/dL (0.2-1); BLOOD UREA NITROGEN 31 mg/dL (7-18); CHLORIDE 110 mmol/L (98-107); CO2 25 mmol/L (21-32); CREATININE 3.4 mg/dL (0.55-1.3); GLUCOSE,RANDOM 107 mg/dL (74-106); MAGNESIUM 2.4 mg/dL (1.8-2.4); PHOSPHOROUS 3.3 mg/dL (2.5-4.9); POTASSIUM 4.3 mmol/L (3.5-5.1); SGOT/AST 17 U/L (15-37); SGPT/ALT 22 U/L (13-61); SODIUM 142 mmol/L (136-145); TOT PROT 6.3 g/dl (6.4-8.2)
[2018-08-02 20:33] LABS: EPI CELLS 2.2 /HPF (0-5); PH,URINE 5.5 (5.0-8.0); URINE APPEARANCE CLEAR; URINE BACTERIA 4.6 /hpf (NEGATIVE); URINE BILIRUBIN NEGATIVE (NEGATIVE); URINE CASTS 10 /hpf (0-8); URINE COLOR YELLOW; URINE GLUCOSE (UA) NEGATIVE (NEGATIVE); URINE KETONE NEGATIVE (NEGATIVE); URINE LEUK ESTERASE 1+ (NEGATIVE); URINE NITRITE NEGATIVE (NEGATIVE); URINE PROTEIN 3+ (NEGATIVE); URINE RBC 63 /hpf (0-4); URINE UROBILINOGEN 0.2 mg/dL (0.2-1.0); URINE WBC 32 /hpf (0-5)
--- NOTE | 2018-08-02 20:56 | PN ---
Teaching Attending Note Name of Resident: Gautam Waters ATTENDING PHYSICIAN STATEMENT I saw and evaluated the patient. I reviewed the resident's note and discussed the case with the resident. I agree with the resident's findings and plan as documented. SUBJECTIVE: Patient is a 63 year old man with a PMH of DM, HTN, HLD, CKD, bladder CA and 10 days POD s/p "prostate removal" at [facility] who presents with constipation. He states that he has not had a normal BM since his surgery, and he feels that his abdomen is becoming increasingly distended. He contacted his surgeon, and he was told to stop taking his Percocet as that could be contributing. He was also told to continue taking the docusate prescribed on his hospital discharge and to add Miralax. He has also tried mineral oil daily, several suppositories, and an enema at home without significant results. He states that he is still passing gas "a little bit" and has had very small bowel movements, but the constipation does not seem to be improving over time. He has noticed increased BLE edema since his surgery. He has had a poor appetite , but he has been drinking Ensure to supplement his meals. He denies any nausea or vomiting. He denies fever, chills, SOB, headache, chest pain or dizziness. His states that during the surgery it was discovered that "his colon was attached to his bladder" and also that he had diverticulosis; however, they report there was no manipulation or surgery involving the bladder or colon. OBJECTIVE: Alert Vital Signs Period Temp Pulse Resp BP Sys/Piña Pulse Ox Last 24 Hr 98.6 F 62 18 166/74 99 HEENT: No Jaundice, eye redness or discharge, PERRLA, EOMI. Normocephalic, atraumatic. External ears are normal and hearing is grossly intact. No nasal discharge. Neck: Supple, nontender. No palpable adenopathy or thyromegaly. No JVD Chest: Good effort. Clear to auscultation and percussion. Heart: Regular. No S3, rub or murmur Abdomen: Distended, soft, periumblical and lower abdominal tenderness and no HSM. No rebound or guarding. Normal bowel sounds. Ext: Peripheral pulses intact. Leg edema. Skin: Warm and dry. No petechiae, rash or ecchymosis. Neuro: Alert. Oriented x3. CN 2-12 grossly intact. Sensation grossly intact in all four extremities and DTR are symmetric. Psych: Appropriate mood and affect. Good insight. Current Medications Generic Name Dose Route Start Last Admin Trade Name Ellyn PRN Reason Stop Dose Admin Ciprofloxacin/Dextrose 400 mg in 200 mls @ 200 mls/hr 08/02/18 20:12 Cipro 400 Mg Premix Ivpb (Restricted To Id) IVPB 08/02/18 21:11 ONCE ONE Metronidazole 500 mg in 100 mls @ 100 mls/hr 08/02/18 20:12 08/02/18 20:48 Flagyl 500mg Premixed Ivpb - IVPB 08/02/18 21:11 100 mls/hr ONCE ONE Administration Home Medications Medication Instructions Recorded Amlodipine Besylate/Benazepril 10 each PO DAILY 07/31/14 [Lotrel 5-20 mg Capsule] Metoprolol Tartrate [Lopressor] 100 mg PO BID 07/31/14 Aspirin [ASA -] 81 mg PO DAILY@0800 11/02/15 Atorvastatin Ca [Lipitor] 10 mg PO HS 07/20/17 Enalapril Maleate [Vasotec -] 10 mg PO DAILY 07/20/17 Insulin Degludec [Tresiba 35 unit SQ DAILY 07/20/17 Flextouch U-100] Pioglitazone HCl 30 mg PO DAILY 07/20/17 metFORMIN HCL [Metformin HCl ER] 1,000 mg PO BID 07/20/17 Abnormal Lab Results 08/02/18 08/02/18 08/02/18 16:00 17:20 20:16 WBC 11.6 H RBC 3.05 L Hgb 9.2 L Hct 28.4 L D Plt Count 456 H D Eosinophils % 13.3 H D Chloride 110 H Anion Gap 7 L BUN 31 H Creatinine 3.4 H Random Glucose 107 H Calcium 8.0 L Total Bilirubin 0.1 L Total Protein 6.3 L Albumin 2.7 L Urine Protein 3+ H Urine Blood 3+ H Ur Leukocyte Esterase 1+ H ASSESSMENT AND PLAN: 1. Sigmoid diverticulitis - CT scan of the abdomen shows sigmoid diverticulitis and moderate amount of stool. Elizabeth use of percocet likely contributed to constipation. Will get KUB to investigate distended abdomen, treat with IV Cipro and Flagyl, hydrate gently, keep him NPO and use oral laxatives including Miralax bid. Avoid narcotics. Consult GI. Mildly elevated troponin may be due to demand ischemia and/or effects of CKD. No acute ST-T wave changes on EKG. Will trend troponin and repeat EKG to rule out ACS. Eosinophilia may signal acute interstitial nephritis, embolic renal disease or parasite infection - will check stool for Ova and Parasite and monitor renal function. Leg edema may be due to amlodipine. Will hold amlodipine, continue hydralazine and lopressor and encourage leg elevation when supine. Get ECHO. 2. Hypoalbuminemia - Possibly due to combined effects of malnutrition and inflammation associated with comorbid chronic conditions. Will ensure adequate dietary protein intake and also consult sewage plant operator. 3. DM For now, we will hold the home diabetes drugs and implement sliding scale insulin regimen. Provide comprehensive diabetes care with patient teaching and counseling about the importance of adherence to prescribed diabetes regimen, euglycemia, eye care and foot care. 4. CKD - May be due to diabetic nephropathy in view of proteinuria. Unclear if he has had a comprehensive nephrologic work up. Will get PTH and Phosphate levels. Exclude superimposed dehydration. Hold vasotec and lasix - unclear why he is on lasix. Consult nephrology and avoid nephrotoxic agents such as NSAIDS, aminoglycosides, contrast dyes and certain Alternative medicine products. 4. Anemia - Likely partly due to CKD. Do basic anemia work up including serial stool guaiacs, reticulocyte count and iron studies. Would benefit from Procrit therapy once iron replete. 5. Obesity Counseled on the risks associated with obesity. Will provide patient all the necessary assistance, counseling and positive reinforcement to facilitate weight loss. Consult sewage plant operator. 6. Hypertension - Restart outpatient antihypertensive drugs and revise regimen to ensure smooth [id number] good BP control. Needs aggressive BP control ( <130/80) to slow progression of CKD. Nonpharmacologic measures to control hypertension like weight loss, salt restriction and exercise discussed. 7. DVT prophylaxis - Heparin 5000u sq tid. 8. Advance directives - Full code
--- NOTE | 2018-08-02 22:00 | HP ---
CHIEF COMPLAINT: constipation , abdominal distension PCP: DR Matthews HISTORY OF PRESENT ILLNESS: Osmani Gonsales is a 63yo man with a PMH of DM, HTN, HLD, CKD, bladder CA, 12 days POD s/p "prostate removal" at [place] who presents reporting constipation. He states that he has not had a normal BM since his surgery, and he feels that his abdomen is becoming increasingly distended. He contacted his surgeon, and he was told to stop taking his Percocet as that could be contributing. He was also told to continue taking the docusate prescribed on his hospital discharge and to add Miralax. He has also tried mineral oil daily, several suppositories, and an enema at home without significant results. He states that he is still passing gas "a little bit" and has had very small bowel movements, but the constipation does not seem to be improving over time. He denies fever, chills, or systemic symptoms. His states that during the surgery it was discovered that "his colon was attached to his bladder" and also that he had diverticulosis ; however, they report there was no manipulation or surgery involving the bladder or colon. Mr Gonsales notes that he has been taking all of his regular medications as prescribed as well, but he has noticed increased BLE edema since his surgery. He has had a poor appetite, but he has been drinking Ensure to supplement his meals. He denies any nausea or vomiting. Mr Gonsales has been in contact with his surgeon regarding the constipation, and it was recommended that he present to the ED for evaluation to make sure there was not an obstruction. ER course was notable for: (1) cbc,cmp (2)CT abdomen/pelvic (3) IV fluids , cipro, flagyl Recent Travel:denies PAST MEDICAL HISTORY: per HPI PAST SURGICAL HISTORY: R hip replacement , prostate ectomy July 21 Social History: Smokin/2 PPD since age of 14 quit 4 months ago Alcohol:socially Drugs: denies Family History:HTN , bladder cancer Allergies No Known Drug Allergies Allergy (Verified 08/02/18 12:34) HOME MEDICATIONS: Home Medications Medication Instructions Recorded Amlodipine Besylate/Benazepril 10 each PO DAILY 07/31/14 [Lotrel 5-20 mg Capsule] Metoprolol Tartrate [Lopressor] 100 mg PO BID 07/31/14 Aspirin [ASA -] 81 mg PO DAILY@0800 11/02/15 Atorvastatin Ca [Lipitor] 10 mg PO HS 07/20/17 Enalapril Maleate [Vasotec -] 10 mg PO DAILY 07/20/17 Insulin Degludec [Tresiba 35 unit SQ DAILY 07/20/17 Flextouch U-100] Pioglitazone HCl 30 mg PO DAILY 07/20/17 metFORMIN HCL [Metformin HCl ER] 1,000 mg PO BID 07/20/17 REVIEW OF SYSTEMS: Abdominal pain in surgery when coughing , feel that he can not empty his bladder , swilling in his legs , loss of appetite , 2 BM in last 12 days CONSTITUTIONAL: Absent: fever, chills, diaphoresis, generalized weakness, malaise, loss of appetite, weight change HEENT: Absent: rhinorrhea, nasal congestion, throat pain, throat swelling, difficulty swallowing, mouth swelling, ear pain, eye pain, visual changes CARDIOVASCULAR: Absent: chest pain, syncope, palpitations, irregular heart rate, lightheadedness , peripheral edema RESPIRATORY: Absent: cough, shortness of breath, dyspnea with exertion, orthopnea, wheezing, stridor, hemoptysis GASTROINTESTINAL: Absent: abdominal pain, abdominal distension, nausea, vomiting, diarrhea, constipation, melena, hematochezia GENITOURINARY: Absent: dysuria, frequency, urgency, hesitancy, hematuria, flank pain, genital pain MUSCULOSKELETAL: Absent: myalgia, arthralgia, joint swelling, back pain, neck pain SKIN: Absent: rash, itching, pallor HEMATOLOGIC/IMMUNOLOGIC: Absent: easy bleeding, easy bruising, lymphadenopathy, frequent infections ENDOCRINE: Absent: unexplained weight gain, unexplained weight loss, heat intolerance, cold intolerance NEUROLOGIC: Absent: headache, focal weakness or paresthesias, dizziness, unsteady gait, seizure, mental status changes, bladder or bowel incontinence PSYCHIATRIC: Absent: anxiety, depression, suicidal or homicidal ideation, hallucinations. PHYSICAL EXAMINATION Vital Signs - 24 hr 08/02/18 08/02/18 12:34 20:50 Temperature 98.6 F 98.8 F Pulse Rate 62 Pulse Rate [ 65 Left] Respiratory 18 18 Rate Blood Pressure 166/74 Blood Pressure 141/48 L [Right Arm] O2 Sat by Pulse 99 100 Oximetry (%) GENERAL: AAOx3 in NAD HEAD: NC/AT EYES: EOMI, Conjunctiva clear, sclera anicteric ENT: moist mucous membrane NECK: Supple, no JVD LUNGS: CTA B/L, no crackles no wheezing no accessory muscle use. HEART: RRR, NSR, normal s1, s2, no M/R/G ABDOMEN: obese distended , diffuse tenderness , +BS 4 Q, no CVA Tenderness, multiple stitches from laparoscopic surgery LOWER EXTREMITIES: +2 edema, +2DP pulse, NEUROLOGICAL: No focal deficit. Normal speech. gait not observed. PSYCHIATRIC: Cooperative. Good eye contact. Appropriate mood and affect. SKIN: Warm, dry, Laboratory Results - last 24 hr 08/02/18 08/02/18 08/02/18 16:00 17:20 20:16 WBC 11.6 H RBC 3.05 L Hgb 9.2 L Hct 28.4 L D MCV 93.1 MCH 30.1 MCHC 32.3 RDW 14.0 Plt Count 456 H D MPV 8.6 Absolute Neuts (auto) 6.5 Neutrophils % 56.3 Lymphocytes % 20.9 D Monocytes % 8.4 Eosinophils % 13.3 H D Basophils % 1.1 Nucleated RBC % 0 Sodium 142 Potassium 4.3 Chloride 110 H Carbon Dioxide 25 Anion Gap 7 L BUN 31 H Creatinine 3.4 H Creat Clearance w eGFR 18.33 Random Glucose 107 H Calcium 8.0 L Phosphorus 3.3 Magnesium 2.4 Total Bilirubin 0.1 L AST 17 ALT 22 Alkaline Phosphatase 106 Total Protein 6.3 L Albumin 2.7 L Urine Color Yellow Urine Appearance Clear Urine pH 5.5 Ur Specific [place] 1.017 Urine Protein 3+ H Urine Glucose (UA) Negative Urine Ketones Negative Urine Blood 3+ H Urine Nitrite Negative Urine Bilirubin Negative Urine Urobilinogen 0.2 Ur Leukocyte Esterase 1+ H Urine WBC (Auto) 32 Urine RBC (Auto) 63 Urine Casts (Auto) 10 U Epithel Cells (Auto) 2.2 Urine Bacteria (Auto) 4.6 CBC, BMP 08/02/18 16:00 08/02/18 17:20 ASSESSMENT/PLAN: Osmani Gonsales is a 63yo man with a PMH of DM, HTN, HLD, CKD, bladder CA, 12 days POD s/p "prostate removal" present to Ed for abdominal distension and constipation was found to have sigmoid colitis and admitted to [facility] for observation and treatment #Constipation # Acute sigmoid colitis , * likely due to recent opioid use S/P prostate surgery , * Abdomen very distendedn , last BM few days ago * CT scan with acute sigmoid colitis and mild stool collection * NPO except meds * Cipro, flagyl started in ED , will continue * IV fluids gentle hydration @ 42 CC/hr * pain control * Zofran for nausea , KUB * laxatives : miralax , colase , suppositry , avoid enema as at risk of perforation * JAIME doen by ED resident with small amount of stool * consider NGT tube * consider GI consult in AM if no improvement * Consider ID for Abx approval * avoid narcotics # Elevated trop * trop I 0.06 , trend * no EKG changes will repeat with trop * no chest pain , likely demand ischemia or due to poor kidney function # Anemia normocytic normochromic anemia acute loss post prostat surgery vs anemia of chronic disease as pt has bladder cancer and ckd * H/H 9.2/28.4 was Hgn 14 on June * Occult blood negative * deneis any hematuria or active bleeding * Monitor H/H daily , repeat at mid night stable * FA, B12 , Irone studies , ferritin , TIBC # DM * A1c * hold oral agents * ISS AACHS * BGM ACHS * NPO for now * he as on truciba 40 units in AM at home will hole for now # HTN * hold ACEI/ARBS due worsening kidney function * Hold furosmid 40 was taking at home * cont Hydralyzin HCL 50 mg po TID and metoprolol tartarate 50 BID * hold Amlodipin due to LE edema # OLEKSANDR on CKD * BUN/Cr 31/3.4 was Cr 2.2 in 2017 , 1.2 in 2017 * urine lytes , NA, urine urea, calculate free urea * pre renal vs worsening ckd * consider Consult Nephrology DR Sonido Dotson * hold nephrotoxic agenet ACEI, Furosemid # eosinophiles 12.6 * stongiloids IGg Ab vs AIN # thrombocytosis : 456 trend plt , # Bladder cancer # S/p prostate removal * F.U out pt with Dr Maldonado Q 3 months * denies any hematuria or burning sensation * has whipple since the procedure , need to be replaced or removed will discuss with Dr Zapata # UTI * UA : +1 LE , WBC 32 * Cont ciprofloxacin * consider remove whipple , bladder scan * urine cx pending # LEg Edema likley due to Amlodipin, r.o CHF component , will hold amlodipin and cont Hydralyzin # Morbid obesity * BMI 40 , * counselled #FEN * F: NS @ 42 CC/hr monitored for overloaded , has recent ECho before surgery please obtain medical records from [facility] * E: monitor * NPO for now #proph * SCDS , B/L , hep SQ TID * GI: no need for now # DISPO * obs M/S * consider transfer to tele if Trop trend up # Full code Visit type - Emergency Visit Emergency Visit: Yes ED Registration Date: 08/02/18 Care time: The patient presented to the Emergency Department on the above date and was hospitalized for further evaluation of their emergent condition. - New Patient This patient is new to me today: Yes Date on this admission: 08/03/18 - Critical Care Critical Care patient: No
[2018-08-02] MEDS ORDERED: BISACODYL 5 MG TABLET.DR (FP) PO ONE (22:12)
[2018-08-02] MEDS ORDERED: BISACODYL 10 MG SUPP.RECT RC PRN (22:12)
[2018-08-02] MEDS ORDERED: SODIUM CHLORIDE 1,000 ML IV SCH ×2 (22:15→23:23)
[2018-08-02] MEDS: DOCUSATE SODIUM 100 MG CAPSULE (FP) PO SCH (22:38)
[2018-08-02] MEDS ORDERED: DOCUSATE SODIUM 100 MG CAPSULE (FP) PO ONE (22:38)
[2018-08-02] MEDS ORDERED: BISACODYL 5 MG TABLET.DR (FP) ONE (22:38)
[2018-08-02 23:13] LABS: BASO % 1.2 % (0-2.0); EOS % 12.6 % (0-4.5); HEMATOCRIT 28.4 % (35.4-49); HEMOGLOBIN 9.2 GM/dL (11.7-16.9); LYMPH % 26.9 % (8-40); MCHC 32.4 g/dl (32.0-35.9); MEAN CELL VOLUME 92.5 fl (80-96); MONO % 8.9 % (3.8-10.2); NEUT % 50.4 % (42.8-82.8); PLATELET COUNT 322 K/MM3 (134-434); RBC 3.07 M/mm3 (4.00-5.60); RDW 14.1 % (11.9-15.9); WHITE BLOOD COUNT 8.5 K/mm3 (4.0-10.0)
[2018-08-03 04:00] VITALS: BMI 40.3
[2018-08-03] MEDS: HEPARIN NA (PORCINE) 5,000 UNITS/ML 1ML VIAL SQ SCH ×3 (05:32→22:48)
[2018-08-03] MEDS: hydrALAZINE HCL 50 MG TABLET (FP) PO SCH ×3 (05:32→22:48)
[2018-08-03] MEDS: DOCUSATE SODIUM 100 MG CAPSULE (FP) PO SCH ×3 (05:32→22:48)
[2018-08-03] MEDS: INSULIN SLIDING SCALE (NOVOLOG) 1 VIAL SQ SCH ×4 (06:52→22:41)
[2018-08-03 08:21] LABS: BASO % 1.3 % (0-2.0); EOS % 11.7 % (0-4.5); HEMATOCRIT 27.1 % (35.4-49); HEMOGLOBIN 8.7 GM/dL (11.7-16.9); LYMPH % 21.8 % (8-40); MCH 29.5 pg (25.7-33.7); MCHC 32.3 g/dl (32.0-35.9); MEAN CELL VOLUME 91.4 fl (80-96); MONO % 8.3 % (3.8-10.2); NEUT % 56.9 % (42.8-82.8); PLATELET COUNT 309 K/MM3 (134-434); RBC 2.96 M/mm3 (4.00-5.60); RDW 13.9 % (11.9-15.9); WHITE BLOOD COUNT 9.5 K/mm3 (4.0-10.0)
--- NOTE | 2018-08-03 09:41 | PN ---
Teaching Attending Note Name of Resident: Rock Horta ATTENDING PHYSICIAN STATEMENT I saw and evaluated the patient. I reviewed the resident's note and discussed the case with the resident. I agree with the resident's findings and plan as documented. SUBJECTIVE: Patient is feeling better with no acute distress. No fever or chills, no shortness of breath. OBJECTIVE: Vital Signs Temperature 98.4 F 08/03/18 06:00 Pulse Rate 63 08/03/18 06:00 Respiratory Rate 20 08/03/18 06:00 Blood Pressure 158/73 08/03/18 06:00 O2 Sat by Pulse Oximetry (%) 98 08/03/18 03:35 GENERAL: AAOx3 in NAD HEAD: NC/AT EYES: EOMI, Conjunctiva clear, sclera anicteric ENT: moist mucous membrane NECK: Supple, no JVD LUNGS: CTA B/L, no crackles no wheezing no accessory muscle use. HEART: RRR, NSR, normal s1, s2, no M/R/G ABDOMEN: obese, no further tenderness , no CVA Tenderness, multiple clean incisions at laparoscopic site. EXTREMITIES: 1+ edema, +2DP pulse, NEUROLOGICAL: No focal deficit. Normal speech. gait not observed. PSYCHIATRIC: Cooperative. Good eye contact. Appropriate mood and affect. SKIN: Warm, dry, CBCD WBC 9.5 K/mm3 (4.0-10.0) 08/03/18 07:30 RBC 2.96 M/mm3 (4.00-5.60) L 08/03/18 07:30 Hgb 8.7 GM/dL (11.7-16.9) L 08/03/18 07:30 Hct 27.1 % (35.4-49) L 08/03/18 07:30 MCV 91.4 fl (80-96) 08/03/18 07:30 MCHC 32.3 g/dl (32.0-35.9) 08/03/18 07:30 RDW 13.9 % (11.9-15.9) 08/03/18 07:30 Plt Count 309 K/MM3 (134-434) 08/03/18 07:30 MPV 8.0 fl (7.5-11.1) 08/03/18 07:30 CMP Sodium 142 mmol/L (136-145) 08/02/18 17:20 Potassium 4.3 mmol/L (3.5-5.1) 08/02/18 17:20 Chloride 110 mmol/L (98-107) H 08/02/18 17:20 Carbon Dioxide 25 mmol/L (21-32) 08/02/18 17:20 Anion Gap 7 MMOL/L (8-16) L 08/02/18 17:20 BUN 31 mg/dL (7-18) H 08/02/18 17:20 Creatinine 3.4 mg/dL (0.55-1.3) H 08/02/18 17:20 Creat Clearance w eGFR 18.33 (>60) 08/02/18 17:20 Random Glucose 107 mg/dL (74-106) H 08/02/18 17:20 Calcium 8.0 mg/dL (8.5-10.1) L 08/02/18 17:20 Total Bilirubin 0.1 mg/dL (0.2-1) L 08/02/18 17:20 AST 17 U/L (15-37) 08/02/18 17:20 ALT 22 U/L (13-61) 08/02/18 17:20 Alkaline Phosphatase 106 U/L (45-117) 08/02/18 17:20 Total Protein 6.3 g/dl (6.4-8.2) L 08/02/18 17:20 Albumin 2.7 g/dl (3.4-5.0) L 08/02/18 17:20 CARDIAC ENZYMES Troponin I 0.06 ng/ml (0.00-0.05) H 08/03/18 07:00 Home Medications Medication Instructions Recorded Amlodipine Besylate/Benazepril 10 each PO DAILY 07/31/14 [Lotrel 5-20 mg Capsule] Metoprolol Tartrate [Lopressor] 100 mg PO BID 07/31/14 Aspirin [ASA -] 81 mg PO DAILY@0800 11/02/15 Atorvastatin Ca [Lipitor] 10 mg PO HS 07/20/17 Enalapril Maleate [Vasotec -] 10 mg PO DAILY 07/20/17 Insulin Degludec [Tresiba 35 unit SQ DAILY 07/20/17 Flextouch U-100] metFORMIN HCL [Metformin HCl ER] 1,000 mg PO BID 07/20/17 Furosemide 40 mg PO DAILY 08/02/18 Hydralazine HCl 50 mg PO TID 08/02/18 Current Medications Generic Name Dose Route Start Last Admin Trade Name Freq PRN Reason Stop Dose Admin Amlodipine Besylate 5 mg 08/04/18 10:00 Norvasc - PO DAILY DAWNA Atorvastatin Calcium 10 mg 08/03/18 22:00 Lipitor - PO HS DAWNA Bisacodyl 10 mg 08/02/18 22:12 Dulcolax Suppository - RC DAILY PRN CONSTIPATION Docusate Sodium 100 mg 08/02/18 22:15 08/03/18 14:19 Colace - PO 100 mg TID DAWNA Administration Heparin Sodium (Porcine) 5,000 unit 08/03/18 06:00 08/03/18 14:19 Heparin - SQ 5,000 unit TID DAWNA Administration Hydralazine HCl 50 mg 08/03/18 06:00 08/03/18 14:19 Apresoline - PO 50 mg TID DAWNA Administration Ciprofloxacin/Dextrose 400 mg in 200 mls @ 200 mls/hr 08/03/18 10:00 12:39 Cipro 400 Mg Premix Ivpb (Restricted To Id) IVPB 08/03/18 22:59 200 mls/hr BID DAWNA Administration Metronidazole 500 mg in 100 mls @ 100 mls/hr 08/03/18 10:00 08/03/18 10:32 Flagyl 500mg Premixed Ivpb - IVPB 100 mls/hr Q8H-IV DAWNA Administration Dextrose/Sodium Chloride 1,000 mls @ 100 mls/hr 08/03/18 10:00 08/03/18 10:32 D5-1/2ns - IV 100 mls/hr ASDIR DAWNA Administration Ceftriaxone Sodium 1 gm/ 50 mls @ 100 mls/hr 08/03/18 16:00 Dextrose IVPB DAILY [facility] Protocol Insulin Aspart 1 vial 08/03/18 07:00 08/03/18 12:50 Novolog Vial Sliding Scale - SQ Not Given ACHS [facility] Protocol Metoprolol Tartrate 100 mg 08/03/18 10:00 08/03/18 10:43 Lopressor - PO 100 mg BID DAWNA Administration Morphine Sulfate 1 mg 08/03/18 15:52 Morphine Sulfate IVPUSH Q4H PRN PAIN LEVEL 7 - 10 Polyethylene Glycol 17 gm 08/03/18 10:00 08/03/18 10:43 Miralax (For Daily Use) - PO 17 gm DAILY DAWNA Administration Senna 2 tab 08/03/18 22:00 Senna - PO HS DAWNA ASSESSMENT AND PLAN: Patient is a 63 year old man with a PMHx of DM, HTN, HLD, CKD, bladder CA s/p prostate removal , POD#10 at [facility] who presents with constipation. # Acute diverticulitis # Acute constipation # acute renal failure with creatinine clearance of 18, stage 4 disease. -HtN Uncontrolled -Hx of T2DM -IVF -IV antibiotics flagyl and rocephin -whipple catheter , patient was told t have it removed once has a bowel movement, patient had x3 BM, will get uro for consult -will moniter, cbc, cmp, mag, phos. -urology and nephro. consulted. -sliding scale -continue home bp meds. and monitor DVt px: heparin
[2018-08-03] MEDS ORDERED: LISINOPRIL 20 MG TABLET (FP) PO SCH (10:00)
[2018-08-03] MEDS ORDERED: PATIENT'S OWN MEDICATION (NON-FORMULARY) (Amlodipine Besylate/Benazepril [Lotrel 5-20 Mg C PO SCH (10:00)
[2018-08-03] MEDS ORDERED: ENALAPRIL MALEATE 10 MG TABLET (FP) PO SCH (10:00)
[2018-08-03] MEDS ORDERED: CIPROFLOXACIN 400 MG/D5W 400 MG/200 ML IVPB IVPB SCH (10:00)
[2018-08-03] MEDS ORDERED: FUROSEMIDE 40 MG TABLET (FP) PO SCH (10:00)
[2018-08-03] MEDS ORDERED: amLODIPine BESYLATE 5 MG TABLET (FP) PO SCH (10:00)
[2018-08-03] MEDS: DEXTROSE 5%-0.45% SALINE 1,000 ML IV SCH (10:32)
[2018-08-03] MEDS: POLYETHYLENE GLYCOL 3350 119 GM BTL PO SCH (10:43)
[2018-08-03] MEDS: METOPROLOL TARTRATE 50 MG TABLET (FP) PO SCH ×2 (10:43→22:48)
--- NOTE | 2018-08-03 11:47 | EKG ---
Test Reason : Blood Pressure : / mmHG Vent. Rate : 060 BPM Atrial Rate : 060 BPM P-R Int : 140 ms QRS Dur : 082 ms QT Int : 424 ms P-R-T Axes : 052 007 021 degrees QTc Int : 424 ms SINUS RHYTHM WITH OCCASIONAL PREMATURE VENTRICULAR COMPLEXES OTHERWISE NORMAL ECG WHEN COMPARED WITH ECG OF 16-APR-2018 17:25, PREMATURE VENTRICULAR COMPLEXES ARE NOW PRESENT NONSPECIFIC T WAVE ABNORMALITY HAS REPLACED INVERTED T WAVES IN INFERIOR LEADS Confirmed by ERAN CAMPBELL, TAWANA ([id number]) on 08/03/2018 11:47:41 AM Referred By: PEDRO LUIS RIOS Confirmed By:TAWANA BARILLAS MD
--- NOTE | 2018-08-03 11:57 | ECHO ---
Name: LIAT GARDUNO Exam:Adult Echocardiogram Study Date: 08/03/2018 07:37 AM Age: 63 yrs Reason For Study: EF Height: 66 in Weight: 245 lb BSA: 2.2 m2 MMode/2D Measurements & Calculations IVSd: 1.4 cm Ao root diam: 3.5 cm LVIDd: 3.8 cm LA dimension: 3.2 cm LVIDs: 2.8 cm LVPWd: 1.3 cm EDV(Teich): 63.3 ml LVOT diam: 2.0 cm ESV(Teich): 29.0 ml Doppler Measurements & Calculations Ao V2 max: 133.0 cm/sec LV V1 max P.9 mmHg Ao max P.1 mmHg LV V1 max: 110.6 cm/sec YURI(V,D): 2.6 cm2 PA V2 max: 129.0 cm/sec Med Peak E' Blayne: 6.2 cm/sec PA max P.7 mmHg Lat Peak E' Blayne: 12.6 cm/sec Procedure A complete two-dimensional transthoracic echocardiogram was performed (2D, M-mode, Doppler and color flow Doppler). Left Ventricle There is mild concentric left ventricular hypertrophy. The left ventricular ejection fraction is norm al. Ejection Fraction = 60-65%. The left ventricular wall motion is normal. Right Ventricle The right ventricle is normal in size and function. Atria Normal left and right atrial size and function. Mitral Valve There is no mitral regurgitation noted. Tricuspid Valve There is trace tricuspid regurgitation. There was insufficient TR detected to calculate RV systolic p ressure. Aortic Valve No hemodynamically significant valvular aortic stenosis. No aortic regurgitation is present. Pulmonic Valve There is no pulmonic valvular regurgitation. Great Vessels The aortic root is normal size. Pericardium/Pleura There is no pericardial effusion. Interpretation Summary There is mild concentric left ventricular hypertrophy. The left ventricular ejection fraction is normal. The right ventricle is normal in size and function. There is trace tricuspid regurgitation. MD Jose Maynard 08/03/2018 11:56 AM
[2018-08-03 13:55] LABS: ALBUMIN 2.7 g/dl (3.4-5.0); ALK PHOS 110 U/L (45-117); ANION GAP 10 MMOL/L (8-16); BILIRUBIN,TOTAL 0.2 mg/dL (0.2-1); BLOOD UREA NITROGEN 29 mg/dL (7-18); CALCIUM 8.5 mg/dL (8.5-10.1); CHLORIDE 110 mmol/L (98-107); CO2 21 mmol/L (21-32); GLUCOSE,RANDOM 71 mg/dL (74-106); LIPASE 292 U/L (73-393); MAGNESIUM 2.5 mg/dL (1.8-2.4); N-TERMINAL BNP 386.5 pg/ml (5-125); SGOT/AST 18 U/L (15-37); SGPT/ALT 20 U/L (13-61); SODIUM 141 mmol/L (136-145); TOT PROT 6.2 g/dl (6.4-8.2)
--- NOTE | 2018-08-03 15:07 | CONSULT ---
Consult - text type - Consultation Consultation Note: Renal Consult for OLEKSANDR on CKD This is a 63 year old gentleman with hx of CKD stage 4 ( baseline Cr ~2.5), DM, Hypertension, Prostate Ca s/p prostatectomy, bladder Ca who presented with complaints of constipation and abd distension and to have colitis and OLEKSANDR. Last outpatient Cr was 3.5 however prior baseline closer to 2.5. Pt denies any urinary retention, had had a whipple since surgery. Has had some LE edema and was on diuretics. Denies any NSAID use. No recent contrast exposure. No flank pain, dysuira. Having BM's in the hospital. No fever, chills. PMHx: as above Allergies: NKDA Family Hx: NC Social Hx: No T/A/D ROS: as per HPI, all other pertinent ros negative Home Medications Medication Instructions Recorded Amlodipine Besylate/Benazepril 10 each PO DAILY 07/31/14 [Lotrel 5-20 mg Capsule] Metoprolol Tartrate [Lopressor] 100 mg PO BID 07/31/14 Aspirin [ASA -] 81 mg PO DAILY@0800 11/02/15 Atorvastatin Ca [Lipitor] 10 mg PO HS 07/20/17 Enalapril Maleate [Vasotec -] 10 mg PO DAILY 07/20/17 Insulin Degludec [Tresiba 35 unit SQ DAILY 07/20/17 Flextouch U-100] metFORMIN HCL [Metformin HCl ER] 1,000 mg PO BID 07/20/17 Furosemide 40 mg PO DAILY 08/02/18 Hydralazine HCl 50 mg PO TID 08/02/18 Vital Signs Temperature 98.4 F 08/03/18 06:00 Pulse Rate 63 08/03/18 06:00 Respiratory Rate 20 08/03/18 06:00 Blood Pressure 158/73 08/03/18 06:00 O2 Sat by Pulse Oximetry (%) 98 08/03/18 03:35 Intake & Output 07/31/18 08/01/18 08/02/18 08/03/18 23:59 23:59 23:59 23:59 Intake Total 300 Output Total 250 Balance 50 Weight 111.13 kg 113.398 kg NAD awake and alert neck supple, no JVD RRR, no M/R CTA, no rales or wheeze soft NT, midl distension no LE edema, clubbing or cyanosis CBC, BMP 08/03/18 07:30 08/03/18 07:00 Laboratory Tests 04/26/18 05/30/18 06/29/18 18:10 18:00 18:00 Creatinine 2.5 H 2.2 H 3.2 H 08/02/18 08/03/18 17:20 07:00 Creatinine 3.4 H 3.0 H Laboratory Tests 08/02/18 20:16 Urine Protein 3+ H Urine Blood 3+ H Ur Leukocyte Esterase 1+ H Urine WBC (Auto) 32 Urine RBC (Auto) 63 Current Medications Atorvastatin Calcium (Lipitor -) 10 mg PO HS DAWNA Bisacodyl (Dulcolax Suppository -) 10 mg RC DAILY PRN PRN Reason: CONSTIPATION Docusate Sodium (Colace -) 100 mg PO TID [facility] Last Admin: 08/03/18 14:19 Dose: 100 mg Heparin Sodium (Porcine) (Heparin -) 5,000 unit SQ TID [facility] Last Admin: 08/03/18 14:19 Dose: 5,000 unit Hydralazine HCl (Apresoline -) 50 mg PO TID [facility] Last Admin: 08/03/18 14:19 Dose: 50 mg Ciprofloxacin/Dextrose (Cipro 400 Mg Premix Ivpb (Restricted To Id)) 400 mg in 200 mls @ 200 mls/hr IVPB BID [facility] Ciprofloxacin/Dextrose (Cipro 400 Mg Premix Ivpb (Restricted To Id)) 400 mg in 200 mls @ 200 mls/hr IVPB BID [facility] Stop: 08/03/18 22:59 Last Admin: 08/03/18 12:39 Dose: 200 mls/hr Metronidazole (Flagyl 500mg Premixed Ivpb -) 500 mg in 100 mls @ 100 mls/hr IVPB Q8H-IV [facility] Last Admin: 08/03/18 10:32 Dose: 100 mls/hr Dextrose/Sodium Chloride (D5-1/2ns -) 1,000 mls @ 100 mls/hr IV ASDIR [facility] Last Admin: 08/03/18 10:32 Dose: 100 mls/hr Insulin Aspart (Novolog Vial Sliding Scale -) 1 vial SQ ACHS [facility]; Protocol Last Admin: 08/03/18 12:50 Dose: Not Given Metoprolol Tartrate (Lopressor -) 100 mg PO BID [facility] Last Admin: 08/03/18 10:43 Dose: 100 mg Morphine Sulfate (Morphine Injection -) 2 mg IVPUSH Q4H PRN PRN Reason: PAIN LEVEL 7 - 10 Polyethylene Glycol (Miralax (For Daily Use) -) 17 gm PO DAILY [facility] Last Admin: 08/03/18 10:43 Dose: 17 gm Senna (Senna -) 2 tab PO HS [facility] 63 year old gentleman with hx of CKD stage 4 (baseline Cr ~2.5) , DM, Hypertension, Prostate Ca s/p prostatectomy, bladder Ca who presented with complaints of constipation and abd distension and to have colitis and OLEKSANDR. #OLEKSANDR on CKD #Colitis #Constipation #Prostate cancer s/p prostatectomy #Hypertension #DM #Anemia Renal function with mild improvement with IVF, would continue for now as pt appears evolemic check urine studies for FeNa, FeUrea, UPCR, Urine Eosinophils agree with holding EMILE for now Trend urine output and renal function avoid nephrotoxins/IV contrast If BP consistently > 150/90 start amlodipine f/u urine cultures continue Abx as per primary team Dose all meds for CrCl < 20 Check iron studies, no acute need for transfusion Thank you Will follow Rosales Olivas DO
--- NOTE | 2018-08-03 15:10 | PN ---
Physical Exam: SUBJECTIVE: Patient seen and examined at bedside. OBJECTIVE: Vital Signs Period Temp Pulse Resp BP Sys/Piña Pulse Ox Last 24 Hr 98.1 F-98.8 F 61-65 16-20 141-158/48-76 96-100 GENERAL: NAD HEAD: Atraumatic/Normocephalic EYES: Sclera clear EOMI ENT: MMM NECK: Supple LUNGS: Decreased BS@Bases HEART: RRR nl S1S2 ABDOMEN: TTP, Robotic trochar insertion sites visualized with sutures in place EXTREMITIES: 1 + Edema. NEUROLOGICAL: Cranial nerves II through XII grossly intact. . PSYCH: Normal mood, normal affect. Laboratory Results - last 24 hr 08/02/18 08/02/18 08/02/18 16:00 17:20 20:16 WBC 11.6 H RBC 3.05 L Hgb 9.2 L Hct 28.4 L D MCV 93.1 MCH 30.1 MCHC 32.3 RDW 14.0 Plt Count 456 H D MPV 8.6 Absolute Neuts (auto) 6.5 Neutrophils % 56.3 Lymphocytes % 20.9 D Monocytes % 8.4 Eosinophils % 13.3 H D Basophils % 1.1 Nucleated RBC % 0 Sodium 142 Potassium 4.3 Chloride 110 H Carbon Dioxide 25 Anion Gap 7 L BUN 31 H Creatinine 3.4 H Creat Clearance w eGFR 18.33 POC Glucometer Random Glucose 107 H Calcium 8.0 L Phosphorus 3.3 Magnesium 2.4 Ferritin Total Bilirubin 0.1 L AST 17 ALT 22 Alkaline Phosphatase 106 Creatine Kinase Troponin I B-Natriuretic Peptide Total Protein 6.3 L Albumin 2.7 L Lipase Vitamin B12 Serum Folate Urine Color Yellow Urine Appearance Clear Urine pH 5.5 Ur Specific [place] 1.017 Urine Protein 3+ H Urine Glucose (UA) Negative Urine Ketones Negative Urine Blood 3+ H Urine Nitrite Negative Urine Bilirubin Negative Urine Urobilinogen 0.2 Ur Leukocyte Esterase 1+ H Urine WBC (Auto) 32 Urine RBC (Auto) 63 Urine Casts (Auto) 10 U Epithel Cells (Auto) 2.2 Urine Bacteria (Auto) 4.6 Stool Occult Blood Blood Type Antibody Screen 08/02/18 08/02/18 08/03/18 23:01 23:01 03:20 WBC 8.5 RBC 3.07 L Hgb 9.2 L Hct 28.4 L MCV 92.5 MCH 30.0 MCHC 32.4 RDW 14.1 Plt Count 322 D MPV 8.0 Absolute Neuts (auto) 4.3 Neutrophils % 50.4 Lymphocytes % 26.9 D Monocytes % 8.9 Eosinophils % 12.6 H Basophils % 1.2 Nucleated RBC % 0 Sodium Potassium Chloride Carbon Dioxide Anion Gap BUN Creatinine Creat Clearance w eGFR POC Glucometer Random Glucose Calcium Phosphorus Magnesium Ferritin Total Bilirubin AST ALT Alkaline Phosphatase Creatine Kinase Troponin I 0.06 H B-Natriuretic Peptide Total Protein Albumin Lipase Vitamin B12 Serum Folate Urine Color Urine Appearance Urine pH Ur Specific [place] Urine Protein Urine Glucose (UA) Urine Ketones Urine Blood Urine Nitrite Urine Bilirubin Urine Urobilinogen Ur Leukocyte Esterase Urine WBC (Auto) Urine RBC (Auto) Urine Casts (Auto) U Epithel Cells (Auto) Urine Bacteria (Auto) Stool Occult Blood Negative Blood Type Antibody Screen 08/03/18 08/03/18 08/03/18 05:26 07:00 07:30 WBC 9.5 RBC 2.96 L Hgb 8.7 L Hct 27.1 L MCV 91.4 MCH 29.5 MCHC 32.3 RDW 13.9 Plt Count 309 MPV 8.0 Absolute Neuts (auto) 5.4 Neutrophils % 56.9 Lymphocytes % 21.8 Monocytes % 8.3 Eosinophils % 11.7 H Basophils % 1.3 Nucleated RBC % 0 Sodium 141 Potassium 4.0 Chloride 110 H Carbon Dioxide 21 Anion Gap 10 BUN 29 H Creatinine 3.0 H Creat Clearance w eGFR 21.17 POC Glucometer 74 Random Glucose 71 L Calcium 8.5 Phosphorus Magnesium 2.5 H Ferritin Total Bilirubin 0.2 AST 18 ALT 20 Alkaline Phosphatase 110 Creatine Kinase Troponin I 0.06 H B-Natriuretic Peptide 386.5 H Total Protein 6.2 L Albumin 2.7 L Lipase 292 Vitamin B12 Serum Folate 6 Urine Color Urine Appearance Urine pH Ur Specific [place] Urine Protein Urine Glucose (UA) Urine Ketones Urine Blood Urine Nitrite Urine Bilirubin Urine Urobilinogen Ur Leukocyte Esterase Urine WBC (Auto) Urine RBC (Auto) Urine Casts (Auto) U Epithel Cells (Auto) Urine Bacteria (Auto) Stool Occult Blood Blood Type Antibody Screen 08/03/18 08/03/18 08/03/18 07:30 07:30 09:57 WBC RBC Hgb Hct MCV MCH MCHC RDW Plt Count MPV Absolute Neuts (auto) Neutrophils % Lymphocytes % Monocytes % Eosinophils % Basophils % Nucleated RBC % Sodium Potassium Chloride Carbon Dioxide Anion Gap BUN Creatinine Creat Clearance w eGFR POC Glucometer Random Glucose Calcium Phosphorus Magnesium Ferritin 94.5 Total Bilirubin AST ALT Alkaline Phosphatase Creatine Kinase 109 Troponin I 0.05 B-Natriuretic Peptide Total Protein Albumin Lipase Vitamin B12 949 Serum Folate Urine Color Urine Appearance Urine pH Ur Specific [place] Urine Protein Urine Glucose (UA) Urine Ketones Urine Blood Urine Nitrite Urine Bilirubin Urine Urobilinogen Ur Leukocyte Esterase Urine WBC (Auto) Urine RBC (Auto) Urine Casts (Auto) U Epithel Cells (Auto) Urine Bacteria (Auto) Stool Occult Blood Blood Type O POSITIVE O POSITIVE Antibody Screen Negative 08/03/18 08/03/18 12:28 12:42 WBC RBC Hgb Hct MCV MCH MCHC RDW Plt Count MPV Absolute Neuts (auto) Neutrophils % Lymphocytes % Monocytes % Eosinophils % Basophils % Nucleated RBC % Sodium Potassium Chloride Carbon Dioxide Anion Gap BUN Creatinine Creat Clearance w eGFR POC Glucometer 76 Random Glucose Calcium Phosphorus Magnesium Ferritin Total Bilirubin AST ALT Alkaline Phosphatase Creatine Kinase Troponin I 0.06 H B-Natriuretic Peptide Total Protein Albumin Lipase Vitamin B12 Serum Folate Urine Color Urine Appearance Urine pH Ur Specific [place] Urine Protein Urine Glucose (UA) Urine Ketones Urine Blood Urine Nitrite Urine Bilirubin Urine Urobilinogen Ur Leukocyte Esterase Urine WBC (Auto) Urine RBC (Auto) Urine Casts (Auto) U Epithel Cells (Auto) Urine Bacteria (Auto) Stool Occult Blood Blood Type Antibody Screen Active Medications Generic Name Dose Route Start Last Admin Trade Name Freq PRN Reason Stop Dose Admin Atorvastatin Calcium 10 mg 08/03/18 22:00 Lipitor - PO HS DAWNA Bisacodyl 10 mg 08/02/18 22:12 Dulcolax Suppository - RC DAILY PRN CONSTIPATION Docusate Sodium 100 mg 08/02/18 22:15 08/03/18 14:19 Colace - PO 100 mg TID [facility] Administration Heparin Sodium (Porcine) 5,000 unit 08/03/18 06:00 08/03/18 14:19 Heparin - SQ 5,000 unit TID [facility] Administration Hydralazine HCl 50 mg 08/03/18 06:00 08/03/18 14:19 Apresoline - PO 50 mg TID [facility] Administration Ciprofloxacin/Dextrose 400 mg in 200 mls @ 200 mls/hr 08/04/18 10:00 Cipro 400 Mg Premix Ivpb (Restricted To Id) IVPB BID [facility]NA Ciprofloxacin/Dextrose 400 mg in 200 mls @ 200 mls/hr 08/03/18 10:00 12:39 Cipro 400 Mg Premix Ivpb (Restricted To Id) IVPB 08/03/18 22:59 200 mls/hr BID DAWNA Administration Metronidazole 500 mg in 100 mls @ 100 mls/hr 08/03/18 10:00 08/03/18 10:32 Flagyl 500mg Premixed Ivpb - IVPB 100 mls/hr Q8H-IV [facility] Administration Dextrose/Sodium Chloride 1,000 mls @ 100 mls/hr 08/03/18 10:00 08/03/18 10:32 D5-1/2ns - IV 100 mls/hr ASDIR [facility] Administration Insulin Aspart 1 vial 08/03/18 07:00 08/03/18 12:50 Novolog Vial Sliding Scale - SQ Not Given ACHS [facility] Protocol Metoprolol Tartrate 100 mg 08/03/18 10:00 08/03/18 10:43 Lopressor - PO 100 mg BID [facility] Administration Polyethylene Glycol 17 gm 08/03/18 10:00 08/03/18 10:43 Miralax (For Daily Use) - PO 17 gm DAILY [facility] Administration Senna 2 tab 08/03/18 22:00 Senna - PO HS DAWNA ASSESSMENT/PLAN: Patient is a 63 year old man with a PMHx of DM, HTN, HLD, CKD, bladder CA s/p robotic prostatectomy, at [facility] who presented with constipation and abdominal pain. # Acute diverticulitis * IVF D5 1/2 NS@100 cc/hr * IV antibiotics flagyl and rocephin # Acute constipation * Senna * Miralax * Colace #CKD Stage 3 -Sliding scale -Urology on board-Continue whipple at this juncture -Nephrology on board #HTN Uncontrolled * Renal on board- Dr Olivas * Amlodipine 5 Daily * Lopressor 100 BID * Hydralazine 50 TID #Hx of T2DM * ISS #DVT ppx: * Heparin SQTID FEN D5 1/2 NS@100 cc/hr Monitor Electrolytes NPO Dispo * Med-Surg Visit type - Emergency Visit Emergency Visit: Yes ED Registration Date: 08/03/18 Care time: The patient presented to the Emergency Department on the above date and was hospitalized for further evaluation of their emergent condition. - New Patient This patient is new to me today: No - Critical Care Critical Care patient: No - Discharge Referral Referred to [facility] Med P.C.: No
[2018-08-03] MEDS ORDERED: MORPHINE SULFATE 2 MG/ML VIAL IVPUSH PRN (15:11)
--- NOTE | 2018-08-03 15:38 | CON.ID ---
Consult Consult Specialty:: infectious diseases - Alcohol/Substance Use Hx Alcohol Use: No - Smoking History Smoking history: Former smoker Have you smoked in the past 12 months: Yes Aproximately how many cigarettes per day: 2 If you are a former smoker, when did you quit?: 4 months ago Home Medications - Allergies Allergies/Adverse Reactions: Allergies Allergy/AdvReac Type Severity Reaction Status Date / Time No Known Drug Allergies Allergy Verified 08/02/18 12:34 - Home Medications Home Medications: Ambulatory Orders Amlodipine Besylate/Benazepril [Lotrel 5-20 mg Capsule] 10 each PO DAILY Metoprolol Tartrate [Lopressor] 100 mg PO BID 07/31/14 Aspirin [ASA -] 81 mg PO DAILY@0800 11/02/15 Atorvastatin Ca [Lipitor] 10 mg PO HS 07/20/17 Enalapril Maleate [Vasotec -] 10 mg PO DAILY 07/20/17 Insulin Degludec [Tresiba Flextouch U-100] 35 unit SQ DAILY 07/20/17 metFORMIN HCL [Metformin HCl ER] 1,000 mg PO BID 07/20/17 Furosemide 40 mg PO DAILY 08/02/18 Hydralazine HCl 50 mg PO TID 08/02/18 Physical Exam Vital Signs: Vital Signs Temperature 98.3 F 08/03/18 14:14 Pulse Rate 58 L 08/03/18 14:14 Respiratory Rate 22 H 08/03/18 14:14 Blood Pressure 143/88 08/03/18 14:14 O2 Sat by Pulse Oximetry (%) 98 08/03/18 03:35 Labs: CBC, BMP 08/03/18 07:30 08/03/18 07:00
[2018-08-03] MEDS ORDERED: DEXTROSE 5%-WATER - 50 ML IVPB ONE (16:42)
[2018-08-03] MEDS ORDERED: cefTRIAXone SODIUM 1 GM VIAL ONE (16:42)
[2018-08-03] MEDS: CEFTRIAXONE 1 GM in DEXTROSE 5%-WATER - 50 ML IVPB SCH (16:59)
--- NOTE | 2018-08-03 18:16 | CON.GU ---
Consult - History of Present Illness History of Present Illness: 63 yo male well known to me with h/o bladder cancer, h/o prostate cancer s/p recent robotic prostatectomy. Now admitted with abdominal distention. CT findings c/w Diverticulitis, has had this in the past. Whipple cath from prostate surgery still in - Alcohol/Substance Use Hx Alcohol Use: No - Smoking History Smoking history: Former smoker Have you smoked in the past 12 months: Yes Aproximately how many cigarettes per day: 2 If you are a former smoker, when did you quit?: 4 months ago Home Medications - Allergies Allergies/Adverse Reactions: Allergies Allergy/AdvReac Type Severity Reaction Status Date / Time No Known Drug Allergies Allergy Verified 08/02/18 12:34 - Home Medications Home Medications: Ambulatory Orders Amlodipine Besylate/Benazepril [Lotrel 5-20 mg Capsule] 10 each PO DAILY Metoprolol Tartrate [Lopressor] 100 mg PO BID 07/31/14 Aspirin [ASA -] 81 mg PO DAILY@0800 11/02/15 Atorvastatin Ca [Lipitor] 10 mg PO HS 07/20/17 Enalapril Maleate [Vasotec -] 10 mg PO DAILY 07/20/17 Insulin Degludec [Tresiba Flextouch U-100] 35 unit SQ DAILY 07/20/17 metFORMIN HCL [Metformin HCl ER] 1,000 mg PO BID 07/20/17 Furosemide 40 mg PO DAILY 08/02/18 Hydralazine HCl 50 mg PO TID 08/02/18 Review of Systems - Review of Systems Gastrointestinal: reports: Abdominal Pain, Bloating Physical Exam- Vital Signs: Vital Signs Temperature 98.3 F 08/03/18 14:14 Pulse Rate 58 L 08/03/18 14:14 Respiratory Rate 22 H 08/03/18 14:14 Blood Pressure 143/88 08/03/18 14:14 O2 Sat by Pulse Oximetry (%) 98 08/03/18 09:00 Gastrointestinal: Yes: Distention Renal/: Yes: Whipple Present Labs: CBC, BMP 08/03/18 07:30 08/03/18 07:00 Imaging - Results Cat Scan: Report Reviewed Problem List - Problems (1) Prostate cancer Assessment/Plan: cont whipple to SD, do not remove or replace at this time Code(s): C61 - MALIGNANT NEOPLASM OF PROSTATE
[2018-08-03 19:22] LABS: EPI CELLS 0.5 /HPF (0-5); URINE APPEARANCE CLEAR; URINE BILIRUBIN NEGATIVE (NEGATIVE); URINE CASTS 3 /hpf (0-8); URINE COLOR YELLOW; URINE GLUCOSE (UA) NEGATIVE (NEGATIVE); URINE KETONE NEGATIVE (NEGATIVE); URINE LEUK ESTERASE NEGATIVE (NEGATIVE); URINE NITRITE NEGATIVE (NEGATIVE); URINE PROTEIN 2+ (NEGATIVE); URINE RBC 17 /hpf (0-4); URINE UROBILINOGEN 0.2 mg/dL (0.2-1.0); URINE WBC 2 /hpf (0-5)
[2018-08-03] MEDS: ATORVASTATIN CA 10 MG TABLET (FP) PO SCH (22:48)
[2018-08-03] MEDS: SENNOSIDES 8.6MG TABLET (FP) PO SCH (22:48)
[2018-08-04 04:15] LABS: SERUM IRON SATURATION 17 % (15-55); TOTAL IRON BINDING CAPACITY 239 ug/dL (250-450); UIBC 199 ug/dL (111-343)
[2018-08-04] MEDS: DOCUSATE SODIUM 100 MG CAPSULE (FP) PO SCH (05:58)
[2018-08-04] MEDS: DEXTROSE 5%-0.45% SALINE 1,000 ML IV SCH ×3 (05:58→17:31)
[2018-08-04] MEDS: HEPARIN NA (PORCINE) 5,000 UNITS/ML 1ML VIAL SQ SCH ×3 (05:58→23:34)
[2018-08-04] MEDS: hydrALAZINE HCL 50 MG TABLET (FP) PO SCH ×3 (05:58→23:34)
[2018-08-04] MEDS: INSULIN SLIDING SCALE (NOVOLOG) 1 VIAL SQ SCH ×4 (06:13→23:48)
[2018-08-04 08:01] LABS: BASO % 0.7 % (0-2.0); EOS % 13.9 % (0-4.5); HEMATOCRIT 26.5 % (35.4-49); HEMOGLOBIN 8.6 GM/dL (11.7-16.9); LYMPH % 20.3 % (8-40); MCH 29.7 pg (25.7-33.7); MCHC 32.5 g/dl (32.0-35.9); MEAN CELL VOLUME 91.6 fl (80-96); MEAN PLT VOLUME 7.7 fl (7.5-11.1); MONO % 9.7 % (3.8-10.2); NEUT % 55.4 % (42.8-82.8); PLATELET COUNT 313 K/MM3 (134-434); RBC 2.89 M/mm3 (4.00-5.60); WHITE BLOOD COUNT 8.3 K/mm3 (4.0-10.0)
[2018-08-04 08:23] LABS: ALBUMIN 2.5 g/dl (3.4-5.0); ALK PHOS 114 U/L (45-117); ANION GAP 7 MMOL/L (8-16); BILIRUBIN,TOTAL 0.3 mg/dL (0.2-1); BLOOD UREA NITROGEN 23 mg/dL (7-18); CALCIUM 8.5 mg/dL (8.5-10.1); CHLORIDE 109 mmol/L (98-107); CO2 23 mmol/L (21-32); CREATININE 2.8 mg/dL (0.55-1.3); GLUCOSE,RANDOM 103 mg/dL (74-106); MAGNESIUM 2.5 mg/dL (1.8-2.4); PHOSPHOROUS 2.9 mg/dL (2.5-4.9); POTASSIUM 4.1 mmol/L (3.5-5.1); SGOT/AST 17 U/L (15-37); SGPT/ALT 18 U/L (13-61); SODIUM 139 mmol/L (136-145)
[2018-08-04] MEDS ORDERED: cefTRIAXone SODIUM 1 GM VIAL ONE (09:46)
[2018-08-04] MEDS ORDERED: DEXTROSE 5%-WATER - 50 ML IVPB ONE (09:47)
[2018-08-04] MEDS: METOPROLOL TARTRATE 50 MG TABLET (FP) PO SCH ×2 (09:54→23:33)
[2018-08-04] MEDS: CEFTRIAXONE 1 GM in DEXTROSE 5%-WATER - 50 ML IVPB SCH (09:55)
[2018-08-04] MEDS: POLYETHYLENE GLYCOL 3350 119 GM BTL PO SCH (09:55)
[2018-08-04] MEDS: amLODIPine BESYLATE 5 MG TABLET (FP) PO SCH (09:55)
[2018-08-04] MEDS ORDERED: CIPROFLOXACIN 400 MG/D5W 400 MG/200 ML IVPB IVPB SCH (10:00)
[2018-08-04] MEDS ORDERED: IRON SUCROSE INJECTION 200 MG in SODIUM CHLORIDE 90 ML IVPB ONE (11:00)
--- NOTE | 2018-08-04 13:11 | PN ---
Progress Note (short form) - Note Progress Note: Renal follow up for CKD Pt seen and examined at the bedside having bowel movements Vital Signs Temperature 98.5 F 08/04/18 09:38 Pulse Rate 59 L 08/04/18 09:38 Respiratory Rate 20 08/04/18 09:38 Blood Pressure 167/84 08/04/18 09:38 O2 Sat by Pulse Oximetry (%) 100 08/04/18 09:00 Intake & Output 08/01/18 08/02/18 08/03/18 08/04/18 23:59 23:59 23:59 23:59 Intake Total 950 1200 Output Total 2350 300 Balance -1400 900 Weight 111.13 kg 113.398 kg NAD awake and alert neck supple, no JVD RRR, no M/R CTA, no rales or wheeze soft NT, midl distension trace LE edema CBC, BMP 08/04/18 07:00 08/04/18 07:00 Current Medications Amlodipine Besylate (Norvasc -) 5 mg PO DAILY DAWNA Last Admin: 08/04/18 09:55 Dose: 5 mg Atorvastatin Calcium (Lipitor -) 10 mg PO HS DAWNA Last Admin: 08/03/18 22:48 Dose: 10 mg Bisacodyl (Dulcolax Suppository -) 10 mg RC DAILY PRN PRN Reason: CONSTIPATION Heparin Sodium (Porcine) (Heparin -) 5,000 unit SQ TID DAWNA Last Admin: 08/04/18 05:58 Dose: 5,000 unit Hydralazine HCl (Apresoline -) 50 mg PO TID DAWNA Last Admin: 08/04/18 05:58 Dose: 50 mg Metronidazole (Flagyl 500mg Premixed Ivpb -) 500 mg in 100 mls @ 100 mls/hr IVPB Q8H-IV [facility] Last Admin: 08/04/18 10:48 Dose: 100 mls/hr Dextrose/Sodium Chloride (D5-1/2ns -) 1,000 mls @ 100 mls/hr IV ASDIR [facility] Last Admin: 08/04/18 09:55 Dose: Not Given Ceftriaxone Sodium 1 gm/ (Dextrose) 50 mls @ 100 mls/hr IVPB DAILY DAW[facility]; Protocol Last Admin: 08/04/18 09:55 Dose: 100 mls/hr Insulin Aspart (Novolog Vial Sliding Scale -) 1 vial SQ ACHS DAWNA; Protocol Last Admin: 08/04/18 11:48 Dose: Not Given Metoprolol Tartrate (Lopressor -) 100 mg PO BID [facility] Last Admin: 08/04/18 09:54 Dose: 100 mg Morphine Sulfate (Morphine Sulfate) 1 mg IVPUSH Q4H PRN PRN Reason: PAIN LEVEL 7 - 10 Polyethylene Glycol (Miralax (For Daily Use) -) 17 gm PO DAILY [facility] Last Admin: 08/04/18 09:55 Dose: Not Given Senna (Senna -) 2 tab PO HS [facility] Last Admin: 08/03/18 22:48 Dose: 2 tab 63 year old gentleman with hx of CKD stage 4 (baseline Cr ~2.5) , DM, Hypertension, Prostate Ca s/p prostatectomy, bladder Ca who presented with complaints of constipation and abd distension and to have colitis and OLEKSANDR. #OLEKSANDR on CKD #Colitis #Constipation #Prostate cancer s/p prostatectomy #Hypertension #DM #Anemia Renal function with mild improvement with IVF as pt w/o evidence of gross volume overload FeUrea was 45% indicating possible tubular damage, Urine Eos are pending, UPCR is pending agree with holding EMILE for now Trend urine output and renal function avoid nephrotoxins/IV contrast on amlodipine, trend BP, titrate to goal BP < 140/90 f/u urine cultures continue Abx as per primary team Dose all meds for CrCl < 20 Check iron studies, no acute need for transfusion maintain whipple as per urology Rosales Olivas DO
[2018-08-04] MEDS: MORPHINE SULFATE 2 MG/ML VIAL IVPUSH PRN ×2 (14:47→23:33)
--- NOTE | 2018-08-04 15:03 | PN ---
Physical Exam: SUBJECTIVE: Patient seen and examined at bedside. No acute events overnight. Endorses bowel movement this am soft in nature. OBJECTIVE: Vital Signs Period Temp Pulse Resp BP Sys/Piña Pulse Ox Last 24 Hr 98.3 F-98.5 F 54-60 20-22 153-167/71-84 98-100 GENERAL: No acute distress HEAD: Atraumatic/Normocephalic EYES: Sclera clear EOMI ENT: MMM NECK: Supple LUNGS: Decreased BS@Bases HEART: RRR nl S1S2 ABDOMEN: Remains TTP, Robotic trochar insertion sites visualized with sutures in place EXTREMITIES: 1 + Edema. NEUROLOGICAL: Cranial nerves II through XII grossly intact. . PSYCH: Normal mood, normal affect. Laboratory Results - last 24 hr 08/03/18 08/03/18 08/03/18 07:30 12:28 16:00 WBC RBC Hgb Hct MCV MCH MCHC RDW Plt Count MPV Absolute Neuts (auto) Neutrophils % Lymphocytes % Monocytes % Eosinophils % Basophils % Nucleated RBC % Sodium Potassium Chloride Carbon Dioxide Anion Gap BUN Creatinine Creat Clearance w eGFR POC Glucometer Random Glucose Calcium Phosphorus Magnesium Iron 40 TIBC 239 L Iron Saturation 17 Ferritin 96.5 Total Bilirubin AST ALT Alkaline Phosphatase Troponin I 0.06 H Total Protein Albumin Urine Color Yellow Urine Appearance Clear Urine pH 6.0 Ur Specific Karval 1.011 Urine Protein 2+ H Urine Glucose (UA) Negative Urine Ketones Negative Urine Blood 1+ H Urine Nitrite Negative Urine Bilirubin Negative Urine Urobilinogen 0.2 Ur Leukocyte Esterase Negative Urine WBC (Auto) 2 Urine RBC (Auto) 17 Urine Casts (Auto) 3 U Epithel Cells (Auto) 0.5 Urine Bacteria (Auto) 1.0 U Random Total Protein Ur Random Sodium Ur Random Urea Nitrogn Urine Creatinine 08/03/18 08/03/18 08/03/18 16:00 16:49 22:32 WBC RBC Hgb Hct MCV MCH MCHC RDW Plt Count MPV Absolute Neuts (auto) Neutrophils % Lymphocytes % Monocytes % Eosinophils % Basophils % Nucleated RBC % Sodium Potassium Chloride Carbon Dioxide Anion Gap BUN Creatinine Creat Clearance w eGFR POC Glucometer 74 82 Random Glucose Calcium Phosphorus Magnesium Iron TIBC Iron Saturation Ferritin Total Bilirubin AST ALT Alkaline Phosphatase Troponin I Total Protein Albumin Urine Color Urine Appearance Urine pH Ur Specific Karval Urine Protein Urine Glucose (UA) Urine Ketones Urine Blood Urine Nitrite Urine Bilirubin Urine Urobilinogen Ur Leukocyte Esterase Urine WBC (Auto) Urine RBC (Auto) Urine Casts (Auto) U Epithel Cells (Auto) Urine Bacteria (Auto) U Random Total Protein 160.3 H Ur Random Sodium 119 Ur Random Urea Nitrogn 296 L Urine Creatinine 65.0 08/04/18 08/04/18 08/04/18 06:07 07:00 07:00 WBC 8.3 RBC 2.89 L Hgb 8.6 L Hct 26.5 L MCV 91.6 MCH 29.7 MCHC 32.5 RDW 14.0 Plt Count 313 MPV 7.7 Absolute Neuts (auto) 4.6 Neutrophils % 55.4 Lymphocytes % 20.3 Monocytes % 9.7 Eosinophils % 13.9 H Basophils % 0.7 Nucleated RBC % 0 Sodium 139 Potassium 4.1 Chloride 109 H Carbon Dioxide 23 Anion Gap 7 L BUN 23 H Creatinine 2.8 H Creat Clearance w eGFR 22.93 POC Glucometer 90 Random Glucose 103 Calcium 8.5 Phosphorus 2.9 Magnesium 2.5 H Iron TIBC Iron Saturation Ferritin Total Bilirubin 0.3 AST 17 ALT 18 Alkaline Phosphatase 114 Troponin I Total Protein 6.0 L Albumin 2.5 L Urine Color Urine Appearance Urine pH Ur Specific Karval Urine Protein Urine Glucose (UA) Urine Ketones Urine Blood Urine Nitrite Urine Bilirubin Urine Urobilinogen Ur Leukocyte Esterase Urine WBC (Auto) Urine RBC (Auto) Urine Casts (Auto) U Epithel Cells (Auto) Urine Bacteria (Auto) U Random Total Protein Ur Random Sodium Ur Random Urea Nitrogn Urine Creatinine 08/04/18 11:44 WBC RBC Hgb Hct MCV MCH MCHC RDW Plt Count MPV Absolute Neuts (auto) Neutrophils % Lymphocytes % Monocytes % Eosinophils % Basophils % Nucleated RBC % Sodium Potassium Chloride Carbon Dioxide Anion Gap BUN Creatinine Creat Clearance w eGFR POC Glucometer 121 Random Glucose Calcium Phosphorus Magnesium Iron TIBC Iron Saturation Ferritin Total Bilirubin AST ALT Alkaline Phosphatase Troponin I Total Protein Albumin Urine Color Urine Appearance Urine pH Ur Specific Karval Urine Protein Urine Glucose (UA) Urine Ketones Urine Blood Urine Nitrite Urine Bilirubin Urine Urobilinogen Ur Leukocyte Esterase Urine WBC (Auto) Urine RBC (Auto) Urine Casts (Auto) U Epithel Cells (Auto) Urine Bacteria (Auto) U Random Total Protein Ur Random Sodium Ur Random Urea Nitrogn Urine Creatinine Active Medications Generic Name Dose Route Start Last Admin Trade Name Freq PRN Reason Stop Dose Admin Amlodipine Besylate 5 mg 03/29/19 10:00 08/04/18 09:55 Norvasc - PO 5 mg DAILY DAWNA Administration Atorvastatin Calcium 10 mg 08/03/18 22:00 08/03/18 22:48 Lipitor - PO 10 mg HS DAWNA Administration Bisacodyl 10 mg 08/02/18 22:12 Dulcolax Suppository - RC DAILY PRN CONSTIPATION Heparin Sodium (Porcine) 5,000 unit 08/03/18 06:00 08/04/18 14:22 Heparin - SQ 5,000 unit TID DAWNA Administration Hydralazine HCl 50 mg 08/03/18 06:00 08/04/18 14:22 Apresoline - PO 50 mg TID DAWNA Administration Metronidazole 500 mg in 100 mls @ 100 mls/hr 08/03/18 10:00 08/04/18 10:48 Flagyl 500mg Premixed Ivpb - IVPB 100 mls/hr Q8H-IV DAWNA Administration Dextrose/Sodium Chloride 1,000 mls @ 100 mls/hr 08/03/18 10:00 08/04/18 09:55 D5-1/2ns - IV Not Given ASDIR DAWNA Ceftriaxone Sodium 1 gm/ 50 mls @ 100 mls/hr 08/03/18 16:00 08/04/18 09:55 Dextrose IVPB 100 mls/hr DAILY DAWNA Administration Protocol Insulin Aspart 1 vial 08/03/18 07:00 08/04/18 11:48 Novolog Vial Sliding Scale - SQ Not Given ACHS [facility] Protocol Metoprolol Tartrate 100 mg 08/03/18 10:00 08/04/18 09:54 Lopressor - PO 100 mg BID DAWNA Administration Morphine Sulfate 1 mg 08/03/18 15:52 08/04/18 14:47 Morphine Sulfate IVPUSH 1 mg Q4H PRN Administration PAIN LEVEL 7 - 10 Polyethylene Glycol 17 gm 08/03/18 10:00 08/04/18 09:55 Miralax (For Daily Use) - PO Not Given DAILY DAWNA Senna 2 tab 08/03/18 22:00 08/03/18 22:48 Senna - PO 2 tab HS DAWNA Administration ASSESSMENT/PLAN: Patient is a 63 year old man with a PMHx of DM, HTN, HLD, CKD, bladder CA s/p robotic prostatectomy, at [facility] who presented with constipation and abdominal pain. # Acute diverticulitis * IVF D5 1/2 NS@100 cc/hr * IV antibiotics flagyl and rocephin DAY 2 # Acute constipation * Senna * Miralax * Colace #CKD Stage 3 -Sliding scale -Urology on board-Continue whipple at this juncture -Nephrology on board. Fractional excretion of urea was 45% indicating possible tubular damage, Urine Eos are pending, UPCR is pending Will hold EMILE for now #HTN Uncontrolled * Renal on board- Dr Olivas * Amlodipine 5 Daily * Lopressor 100 BID * Hydralazine 50 TID #Hx of T2DM * ISS #DVT ppx: * Heparin SQTID FEN D5 1/2 NS@100 cc/hr Monitor Electrolytes CLEARS Dispo * Med-Surg Visit type - Emergency Visit Emergency Visit: Yes ED Registration Date: 08/03/18 Care time: The patient presented to the Emergency Department on the above date and was hospitalized for further evaluation of their emergent condition. - New Patient This patient is new to me today: No - Critical Care Critical Care patient: No - Discharge Referral Referred to [facility] Med P.C.: No
--- NOTE | 2018-08-04 16:46 | PN ---
Teaching Attending Note Name of Resident: Rock Horta ATTENDING PHYSICIAN STATEMENT I saw and evaluated the patient. I reviewed the resident's note and discussed the case with the resident. I agree with the resident's findings and plan as documented. SUBJECTIVE: Patient feels better today with no acute distress. OBJECTIVE: Vital Signs Temperature 98.7 F 08/04/18 14:24 Pulse Rate 58 L 08/04/18 14:24 Respiratory Rate 20 08/04/18 14:24 Blood Pressure 161/77 08/04/18 14:24 O2 Sat by Pulse Oximetry (%) 100 08/04/18 09:00 GENERAL: The patient is awake, alert, and fully oriented, in no acute distress. HEAD: Normal with no signs of trauma. EYES: PERRL, extraocular movements intact, sclera anicteric, conjunctiva clear. ENT: Ears normal, oropharynx clear without exudates, moist mucous membranes. NECK: Trachea midline, full range of motion, supple. LUNGS: Breath sounds equal, clear to auscultation bilaterally, no wheezes, no crackles, no accessory muscle use. HEART: Regular rate and rhythm, S1, S2 without murmur, rub or gallop. ABDOMEN: Soft, nontender, nondistended, normoactive bowel sounds, no guarding, no rebound, positive for clean incisions laproscopic site. EXTREMITIES: 2+ pulses, warm, well-perfused, no edema. NEUROLOGICAL: Cranial nerves II through XII grossly intact. Normal speech, gait not observed. PSYCH: Normal mood, normal affect. SKIN: Warm, dry, normal turgor, no rashes or lesions noted : positive for whipple, came from home. CBCD WBC 8.3 K/mm3 (4.0-10.0) 08/04/18 07:00 RBC 2.89 M/mm3 (4.00-5.60) L 08/04/18 07:00 Hgb 8.6 GM/dL (11.7-16.9) L 08/04/18 07:00 Hct 26.5 % (35.4-49) L 08/04/18 07:00 MCV 91.6 fl (80-96) 08/04/18 07:00 MCHC 32.5 g/dl (32.0-35.9) 08/04/18 07:00 RDW 14.0 % (11.9-15.9) 08/04/18 07:00 Plt Count 313 K/MM3 (134-434) 08/04/18 07:00 MPV 7.7 fl (7.5-11.1) 08/04/18 07:00 CMP Sodium 139 mmol/L (136-145) 08/04/18 07:00 Potassium 4.1 mmol/L (3.5-5.1) 08/04/18 07:00 Chloride 109 mmol/L (98-107) H 08/04/18 07:00 Carbon Dioxide 23 mmol/L (21-32) 08/04/18 07:00 Anion Gap 7 MMOL/L (8-16) L 08/04/18 07:00 BUN 23 mg/dL (7-18) H 08/04/18 07:00 Creatinine 2.8 mg/dL (0.55-1.3) H 08/04/18 07:00 Creat Clearance w eGFR 22.93 (>60) 08/04/18 07:00 Random Glucose 103 mg/dL (74-106) 08/04/18 07:00 Calcium 8.5 mg/dL (8.5-10.1) 08/04/18 07:00 Total Bilirubin 0.3 mg/dL (0.2-1) 08/04/18 07:00 AST 17 U/L (15-37) 08/04/18 07:00 ALT 18 U/L (13-61) 08/04/18 07:00 Alkaline Phosphatase 114 U/L (45-117) 08/04/18 07:00 Total Protein 6.0 g/dl (6.4-8.2) L 08/04/18 07:00 Albumin 2.5 g/dl (3.4-5.0) L 08/04/18 07:00 CARDIAC ENZYMES Creatine Kinase 109 U/L (26-308) 08/03/18 07:30 Troponin I 0.06 ng/ml (0.00-0.05) H 08/03/18 12:28 Current Medications Generic Name Dose Route Start Last Admin Trade Name Freq PRN Reason Stop Dose Admin Amlodipine Besylate 5 mg 08/04/18 10:00 08/04/18 09:55 Norvasc - PO 5 mg DAILY DAWNA Administration Atorvastatin Calcium 10 mg 08/03/18 22:00 08/03/18 22:48 Lipitor - PO 10 mg HS DAWNA Administration Bisacodyl 10 mg 08/02/18 22:12 Dulcolax Suppository - RC DAILY PRN CONSTIPATION Heparin Sodium (Porcine) 5,000 unit 08/03/18 06:00 08/04/18 14:22 Heparin - SQ 5,000 unit TID DAWNA Administration Hydralazine HCl 50 mg 08/03/18 06:00 08/04/18 14:22 Apresoline - PO 50 mg TID DAWNA Administration Metronidazole 500 mg in 100 mls @ 100 mls/hr 08/03/18 10:00 08/04/18 10:48 Flagyl 500mg Premixed Ivpb - IVPB 100 mls/hr Q8H-IV DAWNA Administration Dextrose/Sodium Chloride 1,000 mls @ 100 mls/hr 08/03/18 10:00 08/04/18 09:55 D5-1/2ns - IV Not Given ASDIR DAWNA Ceftriaxone Sodium 1 gm/ 50 mls @ 100 mls/hr 08/03/18 16:00 08/04/18 09:55 Dextrose IVPB 100 mls/hr DAILY [facility] Administration Protocol Insulin Aspart 1 vial 08/03/18 07:00 08/04/18 11:48 Novolog Vial Sliding Scale - SQ Not Given ACHS [facility] Protocol Metoprolol Tartrate 100 mg 08/03/18 10:00 08/04/18 09:54 Lopressor - PO 100 mg BID DAWNA Administration Morphine Sulfate 1 mg 08/03/18 15:52 08/04/18 14:47 Morphine Sulfate IVPUSH 1 mg Q4H PRN Administration PAIN LEVEL 7 - 10 Polyethylene Glycol 17 gm 08/03/18 10:00 08/04/18 09:55 Miralax (For Daily Use) - PO Not Given DAILY DAWNA Senna 2 tab 08/03/18 22:00 08/03/18 22:48 Senna - PO 2 tab HS [facility] Administration Home Medications Medication Instructions Recorded Amlodipine Besylate/Benazepril 10 each PO DAILY 07/31/14 [Lotrel 5-20 mg Capsule] Metoprolol Tartrate [Lopressor] 100 mg PO BID 07/31/14 Aspirin [ASA -] 81 mg PO DAILY@0800 11/02/15 Atorvastatin Ca [Lipitor] 10 mg PO HS 07/20/17 Enalapril Maleate [Vasotec -] 10 mg PO DAILY 07/20/17 Insulin Degludec [Tresiba 35 unit SQ DAILY 07/20/17 Flextouch U-100] metFORMIN HCL [Metformin HCl ER] 1,000 mg PO BID 07/20/17 Furosemide 40 mg PO DAILY 08/02/18 Hydralazine HCl 50 mg PO TID 08/02/18 ASSESSMENT AND PLAN: Patient is a 63 year old man with a PMHx of DM, HTN, HLD, CKD, bladder CA s/p prostate removal , POD#10 at [facility] who presents with constipation. # Acute diverticulitis day # 2 of IV antibiotics Rocephin/flagyl continue # Acute constipation continue bowel regimen # acute renal failure with creatinine clearance of 18-->22 today , stage 4 disease. improving -HtN Uncontrolled on lopressor and norvasc -Hx of T2DM on sliding scale -IVF -IV antibiotics flagyl and rocephin -whipple catheter , uro , to keep it for now. -will moniter, cbc, cmp, mag, phos. -urology and nephro. on the case DVt px: heparin
[2018-08-04] MEDS: SENNOSIDES 8.6MG TABLET (FP) PO SCH (23:34)
[2018-08-04] MEDS: ATORVASTATIN CA 10 MG TABLET (FP) PO SCH (23:34)
[2018-08-05] MEDS: DEXTROSE 5%-0.45% SALINE 1,000 ML IV SCH ×2 (05:38→06:30)
[2018-08-05] MEDS: INSULIN SLIDING SCALE (NOVOLOG) 1 VIAL SQ SCH ×4 (06:18→21:53)
[2018-08-05] MEDS: hydrALAZINE HCL 50 MG TABLET (FP) PO SCH ×3 (06:22→21:50)
[2018-08-05] MEDS: HEPARIN NA (PORCINE) 5,000 UNITS/ML 1ML VIAL SQ SCH ×3 (06:23→21:50)
[2018-08-05 08:38] LABS: HEMATOCRIT 31.8 % (35.4-49); HEMOGLOBIN 10.2 GM/dL (11.7-16.9); MCH 29.4 pg (25.7-33.7); MCHC 31.9 g/dl (32.0-35.9); MEAN PLT VOLUME 7.9 fl (7.5-11.1); PLATELET COUNT 366 K/MM3 (134-434); RBC 3.46 M/mm3 (4.00-5.60); RDW 14.1 % (11.9-15.9); WHITE BLOOD COUNT 8.8 K/mm3 (4.0-10.0)
[2018-08-05 09:00] LABS: ANION GAP 7 MMOL/L (8-16); BLOOD UREA NITROGEN 14 mg/dL (7-18); CALCIUM 8.3 mg/dL (8.5-10.1); CHLORIDE 109 mmol/L (98-107); CO2 23 mmol/L (21-32); CREATININE 2.6 mg/dL (0.55-1.3); GLUCOSE,RANDOM 136 mg/dL (74-106); MAGNESIUM 2.1 mg/dL (1.8-2.4); PHOSPHOROUS 3.2 mg/dL (2.5-4.9); POTASSIUM 4.3 mmol/L (3.5-5.1); SODIUM 139 mmol/L (136-145)
[2018-08-05] MEDS ORDERED: DEXTROSE 5%-WATER - 50 ML IVPB ONE (10:56)
[2018-08-05] MEDS ORDERED: cefTRIAXone SODIUM 1 GM VIAL ONE (10:56)
[2018-08-05] MEDS: amLODIPine BESYLATE 5 MG TABLET (FP) PO SCH (10:58)
[2018-08-05] MEDS: METOPROLOL TARTRATE 50 MG TABLET (FP) PO SCH ×2 (10:58→21:50)
[2018-08-05] MEDS: CEFTRIAXONE 1 GM in DEXTROSE 5%-WATER - 50 ML IVPB SCH (10:59)
[2018-08-05] MEDS: POLYETHYLENE GLYCOL 3350 119 GM BTL PO SCH (10:59)
--- NOTE | 2018-08-05 12:02 | PN ---
Progress Note (short form) - Note Progress Note: Patient is comfortable in no acute distress. Vital Signs Temperature 98.5 F 08/05/18 10:00 Pulse Rate 53 L 08/05/18 10:00 Respiratory Rate 19 08/05/18 10:00 Blood Pressure 182/74 H 08/05/18 10:00 O2 Sat by Pulse Oximetry (%) 100 08/04/18 21:00 GENERAL: The patient is awake, alert, and fully oriented, in no acute distress. HEAD: Normal with no signs of trauma. EYES: PERRL, extraocular movements intact, sclera anicteric, conjunctiva clear. ENT: Ears normal, oropharynx clear without exudates, moist mucous membranes. NECK: Trachea midline, full range of motion, supple. LUNGS: Breath sounds equal, clear to auscultation bilaterally, no wheezes, no crackles, no accessory muscle use. HEART: Regular rate and rhythm, S1, S2 without murmur, rub or gallop. ABDOMEN: Soft, nontender, nondistended, normoactive bowel sounds, no guarding, no rebound, positive for clean incisions laporoscopic site. EXTREMITIES: 2+ pulses, warm, well-perfused, no edema. NEUROLOGICAL: Cranial nerves II through XII grossly intact. Normal speech, gait not observed. PSYCH: Normal mood, normal affect. SKIN: Warm, dry, normal turgor, no rashes or lesions noted : positive for whipple, came from home with it, as Per Ficazolla to continue CBCD WBC 8.8 K/mm3 (4.0-10.0) 08/05/18 07:40 RBC 3.46 M/mm3 (4.00-5.60) L 08/05/18 07:40 Hgb 10.2 GM/dL (11.7-16.9) L 08/05/18 07:40 Hct 31.8 % (35.4-49) L D 08/05/18 07:40 MCV 92.0 fl (80-96) 08/05/18 07:40 MCHC 31.9 g/dl (32.0-35.9) L 08/05/18 07:40 RDW 14.1 % (11.9-15.9) 08/05/18 07:40 Plt Count 366 K/MM3 (134-434) 08/05/18 07:40 MPV 7.9 fl (7.5-11.1) 08/05/18 07:40 CMP Sodium 139 mmol/L (136-145) 08/05/18 07:40 Potassium 4.3 mmol/L (3.5-5.1) 08/05/18 07:40 Chloride 109 mmol/L (98-107) H 08/05/18 07:40 Carbon Dioxide 23 mmol/L (21-32) 08/05/18 07:40 Anion Gap 7 MMOL/L (8-16) L 08/05/18 07:40 BUN 14 mg/dL (7-18) 08/05/18 07:40 Creatinine 2.6 mg/dL (0.55-1.3) H 08/05/18 07:40 Creat Clearance w eGFR 24.98 (>60) 08/05/18 07:40 Random Glucose 136 mg/dL (74-106) H 08/05/18 07:40 Calcium 8.3 mg/dL (8.5-10.1) L 08/05/18 07:40 Total Bilirubin 0.3 mg/dL (0.2-1) 08/04/18 07:00 AST 17 U/L (15-37) 08/04/18 07:00 ALT 18 U/L (13-61) 08/04/18 07:00 Alkaline Phosphatase 114 U/L (45-117) 08/04/18 07:00 Total Protein 6.0 g/dl (6.4-8.2) L 08/04/18 07:00 Albumin 2.5 g/dl (3.4-5.0) L 08/04/18 07:00 CARDIAC ENZYMES Creatine Kinase 109 U/L (26-308) 08/03/18 07:30 Troponin I 0.06 ng/ml (0.00-0.05) H 08/03/18 12:28 Current Medications Generic Name Dose Route Start Last Admin Trade Name Freq PRN Reason Stop Dose Admin Amlodipine Besylate 5 mg 08/04/18 10:00 08/05/18 10:58 Norvasc - PO 5 mg DAILY DAWNA Administration Atorvastatin Calcium 10 mg 08/03/18 22:00 08/04/18 23:34 Lipitor - PO 10 mg HS DAWNA Administration Bisacodyl 10 mg 08/02/18 22:12 Dulcolax Suppository - RC DAILY PRN CONSTIPATION Heparin Sodium (Porcine) 5,000 unit 08/03/18 06:00 08/05/18 06:23 Heparin - SQ 5,000 unit TID DAWNA Administration Hydralazine HCl 50 mg 08/03/18 06:00 08/05/18 06:22 Apresoline - PO 50 mg TID DAWNA Administration Metronidazole 500 mg in 100 mls @ 100 mls/hr 08/03/18 10:00 08/05/18 10:59 Flagyl 500mg Premixed Ivpb - IVPB 100 mls/hr Q8H-IV DAWNA Administration Ceftriaxone Sodium 1 gm/ 50 mls @ 100 mls/hr 08/03/18 16:00 08/05/18 10:59 Dextrose IVPB 100 mls/hr DAILY DAWNA Administration Protocol Dextrose/Sodium Chloride 1,000 mls @ 75 mls/hr 08/05/18 06:28 08/05/18 06:30 D5-1/2ns - IV 75 mls/hr ASDIR DAWNA Administration Insulin Aspart 1 vial 08/03/18 07:00 08/05/18 06:18 Novolog Vial Sliding Scale - SQ Not Given ACHS [facility] Protocol Metoprolol Tartrate 100 mg 08/03/18 10:00 08/05/18 10:58 Lopressor - PO 100 mg BID DAWNA Administration Morphine Sulfate 1 mg 08/03/18 15:52 08/04/18 23:33 Morphine Sulfate IVPUSH 1 mg Q4H PRN Administration PAIN LEVEL 7 - 10 Polyethylene Glycol 17 gm 08/03/18 10:00 08/05/18 10:59 Miralax (For Daily Use) - PO Not Given DAILY [facility] Senna 2 tab 08/03/18 22:00 08/04/18 23:34 Senna - PO 2 tab HS DAWNA Administration Home Medications Medication Instructions Recorded Amlodipine Besylate/Benazepril 10 each PO DAILY 07/31/14 [Lotrel 5-20 mg Capsule] Metoprolol Tartrate [Lopressor] 100 mg PO BID 07/31/14 Aspirin [ASA -] 81 mg PO DAILY@0800 11/02/15 Atorvastatin Ca [Lipitor] 10 mg PO HS 07/20/17 Enalapril Maleate [Vasotec -] 10 mg PO DAILY 07/20/17 Insulin Degludec [Tresiba 35 unit SQ DAILY 07/20/17 Flextouch U-100] metFORMIN HCL [Metformin HCl ER] 1,000 mg PO BID 07/20/17 Furosemide 40 mg PO DAILY 08/02/18 Hydralazine HCl 50 mg PO TID 08/02/18 Laboratory Tests 08/03/18 08/03/18 08/03/18 07:00 07:30 16:00 Creatinine 3.0 H U Random Total Protein 160.3 H Ur Random Sodium 119 Ur Random Urea Nitrogn 296 L Urine Creatinine 65.0 Strongyloides IgG Ab Pending O & P Permanent Slide 08/04/18 08/04/18 08/05/18 06:00 07:00 07:40 Creatinine 2.8 H 2.6 H U Random Total Protein Ur Random Sodium Ur Random Urea Nitrogn Urine Creatinine Strongyloides IgG Ab O & P Permanent Slide Pending A/P: Patient is a 63 year old man with a PMHx of DM, HTN, HLD, CKD, bladder CA s/p prostate removal , POD#10 at [facility] who presents with constipation. # Acute diverticulitis day # 3 of IV antibiotics Rocephin/flagyl continue # Acute constipation continue bowel regimen, patient is having diarrhea now, will hold the meds for now. # acute renal failure with creatinine clearance of 18-->22 --> 25 today , stage 4 disease. improving -HtN Uncontrolled on lopressor and norvasc -Hx of T2DM on sliding scale -IV antibiotics flagyl and rocephin -whipple catheter , uro , to keep it for now. -will moniter, cbc, cmp, mag, phos. -urology and nephro. on the case DVt px: heparin Visit type - Emergency Visit Emergency Visit: Yes ED Registration Date: 08/03/18 Care time: The patient presented to the Emergency Department on the above date and was hospitalized for further evaluation of their emergent condition. - New Patient This patient is new to me today: No - Critical Care Critical Care patient: No - Discharge Referral Referred to [facility] Med P.C.: No
--- NOTE | 2018-08-05 17:49 | PN ---
Progress Note (short form) - Note Progress Note: CKD stage 4 (baseline Cr ~2.5), DM, Hypertension, Prostate Ca s/p prostatectomy, bladder Ca who presented with complaints of constipation and abd distension colitis and OLEKSANDR. #OLEKSANDR on CKD #Colitis #Constipation #Prostate cancer s/p prostatectomy #Hypertension #DM #Anemia Current Medications Amlodipine Besylate (Norvasc -) 5 mg PO DAILY [facility] Last Admin: 08/05/18 10:58 Dose: 5 mg Atorvastatin Calcium (Lipitor -) 10 mg PO HS [facility] Last Admin: 08/04/18 23:34 Dose: 10 mg Bisacodyl (Dulcolax Suppository -) 10 mg RC DAILY PRN PRN Reason: CONSTIPATION Heparin Sodium (Porcine) (Heparin -) 5,000 unit SQ TID [facility] Last Admin: 08/05/18 14:57 Dose: 5,000 unit Hydralazine HCl (Apresoline -) 50 mg PO TID [facility] Last Admin: 08/05/18 14:57 Dose: 50 mg Metronidazole (Flagyl 500mg Premixed Ivpb -) 500 mg in 100 mls @ 100 mls/hr IVPB Q8H-IV DAWNA Last Admin: 08/05/18 17:05 Dose: 100 mls/hr Ceftriaxone Sodium 1 gm/ (Dextrose) 50 mls @ 100 mls/hr IVPB DAILY [facility]; Protocol Last Admin: 08/05/18 10:59 Dose: 100 mls/hr Dextrose/Sodium Chloride (D5-1/2ns -) 1,000 mls @ 75 mls/hr IV ASDIR [facility] Last Admin: 08/05/18 06:30 Dose: 75 mls/hr Insulin Aspart (Novolog Vial Sliding Scale -) 1 vial SQ ACHS [facility]; Protocol Last Admin: 08/05/18 16:45 Dose: Not Given Metoprolol Tartrate (Lopressor -) 100 mg PO BID [facility] Last Admin: 08/05/18 10:58 Dose: 100 mg Morphine Sulfate (Morphine Sulfate) 1 mg IVPUSH Q4H PRN PRN Reason: PAIN LEVEL 7 - 10 Last Admin: 08/04/18 23:33 Dose: 1 mg Polyethylene Glycol (Miralax (For Daily Use) -) 17 gm PO DAILY [facility] Last Admin: 08/05/18 10:59 Dose: Not Given Senna (Senna -) 2 tab PO HS [facility] Last Admin: 08/04/18 23:34 Dose: 2 tab Last Vital Signs Temp Pulse Resp BP Pulse Ox 98.4 F 54 L 22 H 157/84 100 08/05/18 14:34 08/05/18 14:34 08/05/18 14:34 08/05/18 14:34 08/05/18 09:00 CBC, BMP 08/05/18 07:40 08/05/18 07:40 Renal function with mild improvement with IVF as pt w/o evidence of gross volume overload FeUrea was 45% indicating possible tubular damage, Urine Eos are pending, UPCR is pending agree with holding EMILE for now Trend urine output and renal function avoid nephrotoxins/IV contrast on amlodipine, trend BP, titrate to goal BP < 140/90 f/u urine cultures continue Abx as per primary team Dose all meds for CrCl < 20 Check iron studies, no acute need for transfusion maintain whipple as per urology
[2018-08-05] MEDS: ATORVASTATIN CA 10 MG TABLET (FP) PO SCH (21:50)
[2018-08-05] MEDS: SENNOSIDES 8.6MG TABLET (FP) PO SCH (21:50)
[2018-08-06] MEDS: DEXTROSE 5%-0.45% SALINE 1,000 ML IV SCH ×3 (01:09→16:53)
[2018-08-06] MEDS: HEPARIN NA (PORCINE) 5,000 UNITS/ML 1ML VIAL SQ SCH ×3 (05:48→22:50)
[2018-08-06] MEDS: hydrALAZINE HCL 50 MG TABLET (FP) PO SCH ×3 (05:48→22:50)
[2018-08-06] MEDS: INSULIN SLIDING SCALE (NOVOLOG) 1 VIAL SQ SCH ×4 (06:02→23:02)
[2018-08-06] MEDS ORDERED: cefTRIAXone SODIUM 1 GM VIAL ONE (09:16)
[2018-08-06] MEDS ORDERED: DEXTROSE 5%-WATER - 50 ML IVPB ONE (09:16)
[2018-08-06] MEDS: METOPROLOL TARTRATE 50 MG TABLET (FP) PO SCH ×2 (09:20→22:50)
[2018-08-06] MEDS: amLODIPine BESYLATE 5 MG TABLET (FP) PO SCH (09:20)
[2018-08-06] MEDS: CEFTRIAXONE 1 GM in DEXTROSE 5%-WATER - 50 ML IVPB SCH (09:21)
[2018-08-06] MEDS: POLYETHYLENE GLYCOL 3350 119 GM BTL PO SCH (09:22)
--- NOTE | 2018-08-06 10:03 | PN ---
Teaching Attending Note Name of Resident: Alo Christina ATTENDING PHYSICIAN STATEMENT I saw and evaluated the patient. I reviewed the resident's note and discussed the case with the resident. I agree with the resident's findings and plan as documented. SUBJECTIVE: Patient is comfortable , no acute distress. OBJECTIVE: Vital Signs Temperature 98.2 F 08/06/18 09:25 Pulse Rate 62 08/06/18 09:25 Respiratory Rate 18 08/06/18 09:25 Blood Pressure 183/86 H 08/06/18 09:25 O2 Sat by Pulse Oximetry (%) 100 08/05/18 21:00 GENERAL: The patient is awake, alert, and fully oriented, in no acute distress. HEAD: Normal with no signs of trauma. EYES: PERRL, extraocular movements intact, sclera anicteric, conjunctiva clear. ENT: Ears normal, oropharynx clear without exudates, moist mucous membranes. NECK: Trachea midline, full range of motion, supple. LUNGS: Breath sounds equal, clear to auscultation bilaterally, no wheezes, no crackles, no accessory muscle use. HEART: Regular rate and rhythm, S1, S2 without murmur, rub or gallop. ABDOMEN: Soft, nontender, nondistended, normoactive bowel sounds, no guarding, no rebound, positive for clean incisions laporoscopic site. EXTREMITIES: 2+ pulses, warm, well-perfused, no edema. NEUROLOGICAL: Cranial nerves II through XII grossly intact. Normal speech, gait not observed. PSYCH: Normal mood, normal affect. SKIN: Warm, dry, normal turgor, no rashes or lesions noted : positive for whipple, came from home with it, as Per Ficazolla to continue CBCD WBC 8.8 K/mm3 (4.0-10.0) 08/05/18 07:40 RBC 3.46 M/mm3 (4.00-5.60) L 08/05/18 07:40 Hgb 10.2 GM/dL (11.7-16.9) L 08/05/18 07:40 Hct 31.8 % (35.4-49) L D 08/05/18 07:40 MCV 92.0 fl (80-96) 08/05/18 07:40 MCHC 31.9 g/dl (32.0-35.9) L 08/05/18 07:40 RDW 14.1 % (11.9-15.9) 08/05/18 07:40 Plt Count 366 K/MM3 (134-434) 08/05/18 07:40 MPV 7.9 fl (7.5-11.1) 08/05/18 07:40 CMP Sodium 139 mmol/L (136-145) 08/05/18 07:40 Potassium 4.3 mmol/L (3.5-5.1) 08/05/18 07:40 Chloride 109 mmol/L (98-107) H 08/05/18 07:40 Carbon Dioxide 23 mmol/L (21-32) 08/05/18 07:40 Anion Gap 7 MMOL/L (8-16) L 08/05/18 07:40 BUN 14 mg/dL (7-18) 08/05/18 07:40 Creatinine 2.6 mg/dL (0.55-1.3) H 08/05/18 07:40 Creat Clearance w eGFR 24.98 (>60) 08/05/18 07:40 Random Glucose 136 mg/dL (74-106) H 08/05/18 07:40 Calcium 8.3 mg/dL (8.5-10.1) L 08/05/18 07:40 Total Bilirubin 0.3 mg/dL (0.2-1) 08/04/18 07:00 AST 17 U/L (15-37) 08/04/18 07:00 ALT 18 U/L (13-61) 08/04/18 07:00 Alkaline Phosphatase 114 U/L (45-117) 08/04/18 07:00 Total Protein 6.0 g/dl (6.4-8.2) L 08/04/18 07:00 Albumin 2.5 g/dl (3.4-5.0) L 08/04/18 07:00 CARDIAC ENZYMES Creatine Kinase 109 U/L (26-308) 08/03/18 07:30 Troponin I 0.06 ng/ml (0.00-0.05) H 08/03/18 12:28 Current Medications Generic Name Dose Route Start Last Admin Trade Name Freq PRN Reason Stop Dose Admin Amlodipine Besylate 5 mg 08/04/18 10:00 08/06/18 09:20 Norvasc - PO 5 mg DAILY DAWNA Administration Atorvastatin Calcium 10 mg 08/03/18 22:00 08/05/18 21:50 Lipitor - PO 10 mg HS DAWNA Administration Bisacodyl 10 mg 08/02/18 22:12 Dulcolax Suppository - RC DAILY PRN CONSTIPATION Heparin Sodium (Porcine) 5,000 unit 08/03/18 06:00 08/06/18 05:48 Heparin - SQ 5,000 unit TID DAWNA Administration Hydralazine HCl 50 mg 08/03/18 06:00 08/06/18 05:48 Apresoline - PO 50 mg TID DAWNA Administration Metronidazole 500 mg in 100 mls @ 100 mls/hr 08/03/18 10:00 08/06/18 09:20 Flagyl 500mg Premixed Ivpb - IVPB 100 mls/hr Q8H-IV DAWNA Administration Ceftriaxone Sodium 1 gm/ 50 mls @ 100 mls/hr 08/03/18 16:00 08/06/18 09:21 Dextrose IVPB 100 mls/hr DAILY DAWNA Administration Protocol Dextrose/Sodium Chloride 1,000 mls @ 75 mls/hr 08/05/18 06:28 08/06/18 09:21 D5-1/2ns - IV Not Given ASDIR [facility] Insulin Aspart 1 vial 08/03/18 07:00 08/06/18 06:02 Novolog Vial Sliding Scale - SQ Not Given ACHS [facility] Protocol Metoprolol Tartrate 100 mg 08/03/18 10:00 08/06/18 09:20 Lopressor - PO 100 mg BID DAWNA Administration Morphine Sulfate 1 mg 08/03/18 15:52 08/04/18 23:33 Morphine Sulfate IVPUSH 1 mg Q4H PRN Administration PAIN LEVEL 7 - 10 Polyethylene Glycol 17 gm 08/03/18 10:00 08/06/18 09:22 Miralax (For Daily Use) - PO Not Given DAILY DAWNA Senna 2 tab 08/03/18 22:00 08/05/18 21:50 Senna - PO 2 tab HS DAWNA Administration Home Medications Medication Instructions Recorded Amlodipine Besylate/Benazepril 10 each PO DAILY 07/31/14 [Lotrel 5-20 mg Capsule] Metoprolol Tartrate [Lopressor] 100 mg PO BID 07/31/14 Aspirin [ASA -] 81 mg PO DAILY@0800 11/02/15 Atorvastatin Ca [Lipitor] 10 mg PO HS 07/20/17 Enalapril Maleate [Vasotec -] 10 mg PO DAILY 07/20/17 Insulin Degludec [Tresiba 35 unit SQ DAILY 07/20/17 Flextouch U-100] metFORMIN HCL [Metformin HCl ER] 1,000 mg PO BID 07/20/17 Furosemide 40 mg PO DAILY 08/02/18 Hydralazine HCl 50 mg PO TID 08/02/18 ASSESSMENT AND PLAN: Patient is a 63 year old man with a PMHx of DM, HTN, HLD, CKD, bladder CA s/p prostate removal , POD#10 at [facility] who presents with constipation. # Acute diverticulitis day # 4 of IV antibiotics Rocephin/flagyl continue # Acute constipation now diarrhea , stop the meds, # acute renal failure with creatinine clearance of 18-->22 --> 25 today , stage 4 disease. improving #HtN Uncontrolled on lopressor and norvasc continue # Hx of T2DM on sliding scale -whipple catheter , uro , to keep it for now. -will moniter, cbc, cmp, mag, phos. -urology and nephro. on the case DVt px: heparin discharge home in am
--- NOTE | 2018-08-06 10:25 | PN ---
Physical Exam: SUBJECTIVE: Patient seen and examined at bedside. Endorses multiple loose bowel movements this am. OBJECTIVE: Vital Signs Period Temp Pulse Resp BP Sys/Piña Pulse Ox Last 24 Hr 97.9 F-99.0 F 54-62 18-22 152-183/64-86 100 GENERAL: NAD HEAD: Atraumatic/Normocephalic EYES: Sclera clear EOMI ENT: MMM NECK: Supple LUNGS: Decreased BS@Bases HEART: RRR nl S1S2 ABDOMEN: Nontender to palpation, Robotic trochar insertion sites visualized with sutures in place EXTREMITIES: 1 + Edema. NEUROLOGICAL: Cranial nerves II through XII grossly intact. . PSYCH: Normal mood, normal affect. Laboratory Results - last 24 hr 08/05/18 08/05/18 08/05/18 12:25 16:44 21:52 POC Glucometer 125 114 144 08/06/18 05:46 POC Glucometer 117 Active Medications Generic Name Dose Route Start Last Admin Trade Name Freq PRN Reason Stop Dose Admin Amlodipine Besylate 5 mg 08/04/18 10:00 08/06/18 09:20 Norvasc - PO 5 mg DAILY DAWNA Administration Atorvastatin Calcium 10 mg 08/03/18 22:00 08/05/18 21:50 Lipitor - PO 10 mg HS DAWNA Administration Bisacodyl 10 mg 08/02/18 22:12 Dulcolax Suppository - RC DAILY PRN CONSTIPATION Heparin Sodium (Porcine) 5,000 unit 08/03/18 06:00 08/06/18 05:48 Heparin - SQ 5,000 unit TID DAWNA Administration Hydralazine HCl 50 mg 08/03/18 06:00 08/06/18 05:48 Apresoline - PO 50 mg TID DAWNA Administration Metronidazole 500 mg in 100 mls @ 100 mls/hr 08/03/18 10:00 08/06/18 09:20 Flagyl 500mg Premixed Ivpb - IVPB 100 mls/hr Q8H-IV DAWNA Administration Ceftriaxone Sodium 1 gm/ 50 mls @ 100 mls/hr 08/03/18 16:00 08/06/18 09:21 Dextrose IVPB 100 mls/hr DAILY DAWNA Administration Protocol Dextrose/Sodium Chloride 1,000 mls @ 75 mls/hr 08/05/18 06:28 08/06/18 09:21 D5-1/2ns - IV Not Given ASDIR [facility] Insulin Aspart 1 vial 08/03/18 07:00 08/06/18 06:02 Novolog Vial Sliding Scale - SQ Not Given ACHS [facility] Protocol Metoprolol Tartrate 100 mg 08/03/18 10:00 08/06/18 09:20 Lopressor - PO 100 mg BID DAWNA Administration Morphine Sulfate 1 mg 08/03/18 15:52 08/04/18 23:33 Morphine Sulfate IVPUSH 1 mg Q4H PRN Administration PAIN LEVEL 7 - 10 Polyethylene Glycol 17 gm 08/03/18 10:00 08/06/18 09:22 Miralax (For Daily Use) - PO Not Given DAILY DAWNA Senna 2 tab 08/03/18 22:00 08/05/18 21:50 Senna - PO 2 tab HS DAWNA Administration ASSESSMENT/PLAN: Patient is a 63 year old man with a PMHx of DM, HTN, HLD, CKD, bladder CA s/p robotic prostatectomy, at [facility] who presented with constipation and abdominal pain. # Acute diverticulitis * IVF D5 1/2 NS@75 cc/hr * IV antibiotics flagyl and rocephin DAY 4 # Diarrhea * C-Diff Toxin/Antigen * Trend WBC #CKD Stage 3 -Sliding scale -Urology on board-Continue whipple at this juncture -Nephrology on board. Fractional excretion of urea was 45% indicating possible tubular damage, Urine Eos are pending #HTN Uncontrolled * Renal on board- Dr Olivas * Amlodipine 5 Daily * Lopressor 100 BID * Hydralazine 50 TID #Hx of T2DM * ISS #DVT ppx: * Heparin SQTID FEN D5 1/2 NS@75 cc/hr Monitor Electrolytes Soft Diet Dispo * Med-Surg Visit type - Emergency Visit Emergency Visit: Yes ED Registration Date: 08/03/18 Care time: The patient presented to the Emergency Department on the above date and was hospitalized for further evaluation of their emergent condition. - New Patient This patient is new to me today: No - Critical Care Critical Care patient: No - Discharge Referral Referred to [facility] Med P.C.: No
[2018-08-06 12:14] LABS: HEMATOCRIT 27.6 % (35.4-49); HEMOGLOBIN 8.8 GM/dL (11.7-16.9); MCH 29.1 pg (25.7-33.7); MCHC 31.8 g/dl (32.0-35.9); MEAN CELL VOLUME 91.6 fl (80-96); MEAN PLT VOLUME 8.1 fl (7.5-11.1); PLATELET COUNT 296 K/MM3 (134-434); RBC 3.02 M/mm3 (4.00-5.60); RDW 14.4 % (11.9-15.9); WHITE BLOOD COUNT 7.3 K/mm3 (4.0-10.0)
[2018-08-06 12:38] LABS: ANION GAP 7 MMOL/L (8-16); BLOOD UREA NITROGEN 10 mg/dL (7-18); CALCIUM 8.2 mg/dL (8.5-10.1); CHLORIDE 111 mmol/L (98-107); CO2 21 mmol/L (21-32); CREATININE 2.3 mg/dL (0.55-1.3); GLUCOSE,RANDOM 144 mg/dL (74-106); MAGNESIUM 2.2 mg/dL (1.8-2.4); PHOSPHOROUS 2.6 mg/dL (2.5-4.9); POTASSIUM 3.8 mmol/L (3.5-5.1); SODIUM 139 mmol/L (136-145)
--- NOTE | 2018-08-06 19:38 | PN ---
Progress Note (short form) - Note Progress Note: CKD stage 4 (baseline Cr ~2.5), DM, Hypertension, Prostate Ca s/p prostatectomy, bladder Ca who presented with complaints of constipation and abd distension colitis and OLEKSANDR. OLEKSANDR on CKD Colitis Constipation Prostate cancer s/p prostatectomy Hypertension DM Anemia Current Medications Amlodipine Besylate (Norvasc -) 5 mg PO DAILY DAWNA Last Admin: 08/06/18 09:20 Dose: 5 mg Atorvastatin Calcium (Lipitor -) 10 mg PO HS DAWNA Last Admin: 08/05/18 21:50 Dose: 10 mg Cholestyramine Resin (Questran Light Packet -) 4 gm PO BID DAWNA Heparin Sodium (Porcine) (Heparin -) 5,000 unit SQ TID DAWNA Last Admin: 08/06/18 13:51 Dose: 5,000 unit Hydralazine HCl (Apresoline -) 50 mg PO TID DAWNA Last Admin: 08/06/18 13:49 Dose: 50 mg Metronidazole (Flagyl 500mg Premixed Ivpb -) 500 mg in 100 mls @ 100 mls/hr IVPB Q8H-IV DAWNA Last Admin: 08/06/18 16:59 Dose: 100 mls/hr Ceftriaxone Sodium 1 gm/ (Dextrose) 50 mls @ 100 mls/hr IVPB DAILY [facility]; Protocol Last Admin: 08/06/18 09:21 Dose: 100 mls/hr Dextrose/Sodium Chloride (D5-1/2ns -) 1,000 mls @ 75 mls/hr IV ASDIR DAWNA Last Admin: 08/06/18 16:53 Dose: 75 mls/hr Insulin Aspart (Novolog Vial Sliding Scale -) 1 vial SQ ACHS DAWNA; Protocol Last Admin: 08/06/18 16:55 Dose: Not Given Metoprolol Tartrate (Lopressor -) 100 mg PO BID DAWNA Last Admin: 08/06/18 09:20 Dose: 100 mg Last Vital Signs Temp Pulse Resp BP Pulse Ox 98.6 F 64 18 163/79 100 08/06/18 18:30 08/06/18 18:30 08/06/18 18:30 08/06/18 18:30 08/06/18 09:00 Lungs clear Heart regular Abd soft Ext no edema CBC, BMP 08/06/18 11:30 08/06/18 11:30 CBC, BMP 08/05/18 07:40 08/05/18 07:40 IMP OLEKSANDR improved underlying CKD Plan- follow up bmp in am
[2018-08-06] MEDS: ATORVASTATIN CA 10 MG TABLET (FP) PO SCH (22:50)
[2018-08-06] MEDS: CHOLESTYRAMINE/ASPARTAME 4 GM PACKET PO SCH (22:50)
[2018-08-07] MEDS: DEXTROSE 5%-0.45% SALINE 1,000 ML IV SCH (06:55)
[2018-08-07] MEDS: hydrALAZINE HCL 50 MG TABLET (FP) PO SCH ×2 (06:55→13:00)
[2018-08-07] MEDS: INSULIN SLIDING SCALE (NOVOLOG) 1 VIAL SQ SCH ×2 (06:56→11:41)
[2018-08-07] MEDS: HEPARIN NA (PORCINE) 5,000 UNITS/ML 1ML VIAL SQ SCH ×2 (06:56→15:02)
[2018-08-07 07:35] VITALS: TEMP 98.5
[2018-08-07] MEDS ORDERED: amLODIPine BESYLATE 5 MG TABLET (FP) PO SCH (09:00)
[2018-08-07] MEDS ORDERED: DEXTROSE 5%-WATER - 50 ML IVPB ONE (10:46)
[2018-08-07] MEDS ORDERED: cefTRIAXone SODIUM 1 GM VIAL ONE (10:46)
[2018-08-07] MEDS: METOPROLOL TARTRATE 50 MG TABLET (FP) PO SCH (11:08)
[2018-08-07] MEDS: CHOLESTYRAMINE/ASPARTAME 4 GM PACKET PO SCH (11:09)
[2018-08-07] MEDS: CEFTRIAXONE 1 GM in DEXTROSE 5%-WATER - 50 ML IVPB SCH (11:09)
[2018-08-07 11:39] LABS: HEMATOCRIT 29.4 % (35.4-49); HEMOGLOBIN 9.4 GM/dL (11.7-16.9); MCH 29.6 pg (25.7-33.7); MCHC 32.1 g/dl (32.0-35.9); MEAN CELL VOLUME 92.2 fl (80-96); MEAN PLT VOLUME 7.8 fl (7.5-11.1); PLATELET COUNT 278 K/MM3 (134-434); RBC 3.19 M/mm3 (4.00-5.60); RDW 14.2 % (11.9-15.9); WHITE BLOOD COUNT 6.8 K/mm3 (4.0-10.0)
[2018-08-07 12:08] LABS: ANION GAP 7 MMOL/L (8-16); BLOOD UREA NITROGEN 9 mg/dL (7-18); CALCIUM 8.4 mg/dL (8.5-10.1); CHLORIDE 111 mmol/L (98-107); CO2 21 mmol/L (21-32); CREATININE 2.1 mg/dL (0.55-1.3); GLUCOSE,RANDOM 222 mg/dL (74-106); MAGNESIUM 2.1 mg/dL (1.8-2.4); PHOSPHOROUS 1.9 mg/dL (2.5-4.9); POTASSIUM 3.9 mmol/L (3.5-5.1); SODIUM 139 mmol/L (136-145)
--- NOTE | 2018-08-07 14:00 | DS ---
Physical Exam: SUBJECTIVE: Patient seen and examined at bedside. no acute events overnight. Denies abdominal pain. OBJECTIVE: Vital Signs Period Temp Pulse Resp BP Sys/Piña Pulse Ox Last 24 Hr 98.5 F-98.8 F 59-65 18-18 162-183/79-87 100 PHYSICAL EXAM GENERAL: No acute distress HEAD: Atraumatic/Normocephalic EYES: Sclera clear EOMI ENT: MMM NECK: Supple LUNGS: Clear to auscultation b/l HEART: RRR nl S1S2 ABDOMEN: Nontender to palpation, Robotic trochar insertion sites visualized with sutures in place EXTREMITIES: 1 + Edema. NEUROLOGICAL: Cranial nerves II through XII grossly intact. . PSYCH: Normal mood, normal affect. LABS Laboratory Results - last 24 hr 08/03/18 08/03/18 08/06/18 07:30 16:00 16:50 WBC RBC Hgb Hct MCV MCH MCHC RDW Plt Count MPV Sodium Potassium Chloride Carbon Dioxide Anion Gap BUN Creatinine Creat Clearance w eGFR POC Glucometer 109 Random Glucose Calcium Phosphorus Magnesium Urine Eosinophils None seen Strongyloides IgG Ab Negative 08/06/18 08/07/18 08/07/18 22:55 06:54 11:05 WBC 6.8 RBC 3.19 L Hgb 9.4 L Hct 29.4 L MCV 92.2 MCH 29.6 MCHC 32.1 RDW 14.2 Plt Count 278 MPV 7.8 Sodium Potassium Chloride Carbon Dioxide Anion Gap BUN Creatinine Creat Clearance w eGFR POC Glucometer 99 114 Random Glucose Calcium Phosphorus Magnesium Urine Eosinophils Strongyloides IgG Ab 08/07/18 08/07/18 11:05 11:40 WBC RBC Hgb Hct MCV MCH MCHC RDW Plt Count MPV Sodium 139 Potassium 3.9 Chloride 111 H Carbon Dioxide 21 Anion Gap 7 L BUN 9 Creatinine 2.1 H Creat Clearance w eGFR 31.96 POC Glucometer 196 Random Glucose 222 H Calcium 8.4 L Phosphorus 1.9 L Magnesium 2.1 Urine Eosinophils Strongyloides IgG Ab HOSPITAL COURSE: Date of Admission:08/03/18 Patient is a 63 year old man with a PMHx of DM, HTN, HLD, CKD, bladder CA, recent robotic prostatectomy at [facility] who presented to [facility] c/o constipation and abdominal pain. Pt underwent a CTAP which revealed acute/ subacute diverticulitis in the sigmoid colon. pt was treated with cipro and flagyl and later switched to Rocephin and flagyl. Pt was made NPO and was also place on I.V fluids. Nephrology and Urology were consulted. Urology recommended that pt continue with his whipple catheter and f/u as outpatient. Amlodipine was started as pt was noted to be hypertensive in the 170's-180's systolic. Pt developed multiple episodes of diarrhea during stay and bowel regimen was discontinued. C Diff Antigen/Toxin was negative. Date of Discharge: 08/07/18 Minutes to complete discharge: 35 Discharge Summary Reason For Visit: DIVERTICULITIS Current Active Problems Diverticulitis (Acute) Prostate cancer (Acute) Condition: Improved - Instructions Diet, Activity, Other Instructions: You presented to the hospital due to inflammation of your colon. Please take note of the following medication: Please take Norvasc 10 mg DAILY. This medication will be sent to your pharmacy. Please be sure to drink plenty of fluids daily. Drink at least 8 glasses of water daily. Please follow up with your kidney doctor, Dr Head this week. Please follow up with your Urologist this week, Dr Negron. You still have a whipple catheter. further care By Please return to the Emergency Department if you begin to experience chest pain , shortness of breath, abdominal pain, nausea/vomiting, fever or chills. Referrals: Ulisses Zapata MD [Staff Physician] - 08/08/18 Rosales Olivas MD [Staff Physician] - 1 Week Disposition: HOME - Home Medications Comprehensive Discharge Medication List: Ambulatory Orders Amlodipine Besylate/Benazepril [Lotrel 5-20 mg Capsule] 10 each PO DAILY Metoprolol Tartrate [Lopressor] 100 mg PO BID 07/31/14 Aspirin [ASA -] 81 mg PO DAILY@0800 11/02/15 Atorvastatin Ca [Lipitor] 10 mg PO HS 07/20/17 Enalapril Maleate [Vasotec -] 10 mg PO DAILY 07/20/17 Insulin Degludec [Tresiba Flextouch U-100] 35 unit SQ DAILY 07/20/17 metFORMIN HCL [Metformin HCl ER] 1,000 mg PO BID 07/20/17 Furosemide 40 mg PO DAILY 08/02/18 Hydralazine HCl 50 mg PO TID 08/02/18 This patient is new to me today: No Emergency Visit: Yes ED Registration Date: 08/03/18 Care time: The patient presented to the Emergency Department on the above date and was hospitalized for further evaluation of their emergent condition. Critical Care patient: No - Discharge Referral Referred to [facility] Med P.C.: No
[2018-08-07 14:57] VITALS: PULSE 63
[2018-08-07] MEDS ORDERED: hydrALAZINE HCL 50 MG TABLET (FP) PO ONE (15:08)
--- NOTE | 2018-08-07 16:32 | PN ---
Teaching Attending Note Name of Resident: Rock Horta ATTENDING PHYSICIAN STATEMENT I saw and evaluated the patient. I reviewed the resident's note and discussed the case with the resident. I agree with the resident's findings and plan as documented. SUBJECTIVE: OBJECTIVE: Vital Signs Temperature 98.5 F 08/07/18 06:00 Pulse Rate 63 08/07/18 14:00 Respiratory Rate 18 08/07/18 14:00 Blood Pressure 141/70 08/07/18 14:00 O2 Sat by Pulse Oximetry (%) 100 08/06/18 21:00 GENERAL: The patient is awake, alert, and fully oriented, in no acute distress. HEAD: Normal with no signs of trauma. EYES: PERRL, extraocular movements intact, sclera anicteric, conjunctiva clear. ENT: Ears normal, oropharynx clear without exudates, moist mucous membranes. NECK: Trachea midline, full range of motion, supple. LUNGS: Breath sounds equal, clear to auscultation bilaterally, no wheezes, no crackles, no accessory muscle use. HEART: Regular rate and rhythm, S1, S2 without murmur, rub or gallop. ABDOMEN: Soft, nontender, nondistended, normoactive bowel sounds, no guarding, no rebound, positive for clean incisions laporoscopic site. EXTREMITIES: 2+ pulses, warm, well-perfused, no edema. NEUROLOGICAL: Cranial nerves II through XII grossly intact. Normal speech, gait not observed. PSYCH: Normal mood, normal affect. SKIN: Warm, dry, normal turgor, no rashes or lesions noted : positive for whipple, came from home with it, as Per Ficazolla to continue CBCD WBC 6.8 K/mm3 (4.0-10.0) 08/07/18 11:05 RBC 3.19 M/mm3 (4.00-5.60) L 08/07/18 11:05 Hgb 9.4 GM/dL (11.7-16.9) L 08/07/18 11:05 Hct 29.4 % (35.4-49) L 08/07/18 11:05 MCV 92.2 fl (80-96) 08/07/18 11:05 MCHC 32.1 g/dl (32.0-35.9) 08/07/18 11:05 RDW 14.2 % (11.9-15.9) 08/07/18 11:05 Plt Count 278 K/MM3 (134-434) 08/07/18 11:05 MPV 7.8 fl (7.5-11.1) 08/07/18 11:05 CMP Sodium 139 mmol/L (136-145) 08/07/18 11:05 Potassium 3.9 mmol/L (3.5-5.1) 08/07/18 11:05 Chloride 111 mmol/L (98-107) H 08/07/18 11:05 Carbon Dioxide 21 mmol/L (21-32) 08/07/18 11:05 Anion Gap 7 MMOL/L (8-16) L 08/07/18 11:05 BUN 9 mg/dL (7-18) 08/07/18 11:05 Creatinine 2.1 mg/dL (0.55-1.3) H 08/07/18 11:05 Creat Clearance w eGFR 31.96 (>60) 08/07/18 11:05 Random Glucose 222 mg/dL (74-106) H 08/07/18 11:05 Calcium 8.4 mg/dL (8.5-10.1) L 08/07/18 11:05 Total Bilirubin 0.3 mg/dL (0.2-1) 08/04/18 07:00 AST 17 U/L (15-37) 08/04/18 07:00 ALT 18 U/L (13-61) 08/04/18 07:00 Alkaline Phosphatase 114 U/L (45-117) 08/04/18 07:00 Total Protein 6.0 g/dl (6.4-8.2) L 08/04/18 07:00 Albumin 2.5 g/dl (3.4-5.0) L 08/04/18 07:00 CARDIAC ENZYMES Creatine Kinase 109 U/L (26-308) 08/03/18 07:30 Troponin I 0.06 ng/ml (0.00-0.05) H 08/03/18 12:28 Home Medications Medication Instructions Recorded Metoprolol Tartrate [Lopressor] 100 mg PO BID 07/31/14 Aspirin [ASA -] 81 mg PO DAILY@0800 11/02/15 Atorvastatin Ca [Lipitor] 10 mg PO HS 07/20/17 Insulin Degludec [Tresiba 35 unit SQ DAILY 07/20/17 Flextouch U-100] Amlodipine Besylate [Norvasc -] 10 mg PO DAILY #30 tablet 08/07/18 Cefuroxime Axetil [Ceftin -] 250 mg PO BID #6 tablet 08/07/18 Enalapril Maleate [Vasotec -] 10 mg PO DAILY #30 tablet 08/07/18 Polyethylene Glycol 3350 [Miralax 17 gm PO DAILY bottle 08/07/18 119 gm Btl -] hydrALAZINE HCL [Apresoline -] 100 mg PO TID #90 tablet 08/07/18 metroNIDAZOLE [Flagyl -] 500 mg PO Q8H #6 tablet 08/07/18 ASSESSMENT AND PLAN: Patient is a 63 year old man with a PMHx of DM, HTN, HLD, CKD, bladder CA s/p prostate removal , POD#10 at [facility] who presents with constipation. # Acute diverticulitis day # 5 of IV antibiotics Rocephin/flagyl , WILL CONTINUE FOR 2 MORE DAY S OF CEFTIN AND FLAGYL ADJUSTED ACCORDING TO HIS KIDNEY FUNCTION. called Jennie his and made her aware of the antibiotics for 2 more days. [phone] # Acute constipation now diarrhea , stopPED the colace, continue Miralax for constipation. # acute renal failure with creatinine clearance of 18-->22 --> 25-->31 today , stage 3 disease, improving. meds are adjsusted according to his kidney function. follow with within a week. #HtN Uncontrolled on lopressor and norvasc , increased Hydralazine to 100mg po tid, lasix is on hold and enalapril in 10mg po daily vs 20mg # Hx of T2DM continue Tresciba inj. follow with sales route driver helper for further management. -whipple catheter , uro , to keep it for now. follow with him in the office discharge patient home.
[2018-08-07 16:35] VITALS: BP 141/75
== END 2018-08-07 15:53 | disposition home or self-care (01) | DRG 392 ==
LOC: JER 12:30 → JERBED 21:06 → J5S 08-03 02:16 → OBSVTOIN 08-03 15:50
PROVIDERS: ADMIT Internal Medicine; ATTEND Internal Medicine
DX: K57.32 Diverticulitis of large intestine without perforation or abscess without bleeding (principal); N17.9 Acute kidney failure, unspecified; N39.0 Urinary tract infection, site not specified; Z68.41 Body mass index [BMI] 40.0-44.9, adult; N18.4 Chronic kidney disease, stage 4 (severe); E11.22 Type 2 diabetes mellitus with diabetic chronic kidney disease; I12.9 Hypertensive chronic kidney disease with stage 1 through stage 4 chronic kidney disease, or unspecified chronic kidney disease; N18.9 Chronic kidney disease, unspecified; Z79.4 Long term (current) use of insulin; E88.09 Other disorders of plasma-protein metabolism, not elsewhere classified; D64.9 Anemia, unspecified; E66.9 Obesity, unspecified; K59.00 Constipation, unspecified; D47.3 Essential (hemorrhagic) thrombocythemia; E66.01 Morbid (severe) obesity due to excess calories; K52.9 Noninfective gastroenteritis and colitis, unspecified; Z85.46 Personal history of malignant neoplasm of prostate
CPT/HCPCS: 36415; 71045-TC-FY; 74018-TC-FY; 74176-TC; 80048; 80053; 81003; 82272; 82550; 82570; 82607; 82728; 82746; 82962; 83540; 83550; 83690; 83735; 83880; 84100; 84156; 84300; 84484; 84540; 85025; 85027; 86682; 86850; 86900; 86901; 87086; 87177; 87205; 87209; 87324; 87449; 93005; 93010; 93306-TC; 94010; 99283-25; G0378; J1644; J1756; J7030

== ENCOUNTER 2020-12-08 12:16 | Inpatient (IN) | payer OTHER ==
[2020-12-08] MEDS ORDERED: SODIUM CHLORIDE 1,000 ML IV STA (13:07)
[2020-12-08] MEDS ORDERED: ACETAMINOPHEN 1000 MG/100 ML VIAL (NON FORMULARY) IVPB ONE ×2 (13:07→20:56)
[2020-12-08] MEDS ORDERED: ACETAMINOPHEN INJECTION 100 ML IVPB ONE ×2 (13:11→21:02)
[2020-12-08 14:01] LABS: BASO % 0.4 % (0-2.0); EOS % 0.4 % (0-4.5); HEMATOCRIT 32.8 % (35.4-49); HEMOGLOBIN 11.2 GM/dL (11.7-16.9); LYMPH % 7.9 % (8-40); MCH 30.9 pg (25.7-33.7); MCHC 34.3 g/dl (32.0-35.9); MEAN CELL VOLUME 90.2 fl (80-96); MONO % 10.9 % (3.8-10.2); NEUT % 80.4 % (42.8-82.8); PLATELET COUNT 286 10^3/uL (134-434); RBC 3.64 M/mm3 (4.00-5.60); RDW 13.9 % (11.9-15.9); WHITE BLOOD COUNT 14.6 K/mm3 (4.0-10.0)
[2020-12-08 14:05] LABS: EPI CELLS 8 /uL (0-25.1); HYALINE CASTS 4 /uL (0-3.1); URINE APPEARANCE CLEAR; URINE BACTERIA 1 /uL (0-1359); URINE BILIRUBIN NEGATIVE (NEGATIVE); URINE COLOR YELLOW; URINE GLUCOSE (UA) NEGATIVE (NEGATIVE); URINE KETONE NEGATIVE (NEGATIVE); URINE LEUK ESTERASE NEGATIVE (NEGATIVE); URINE NITRITE NEGATIVE (NEGATIVE); URINE PROTEIN 3+ (NEGATIVE); URINE RBC 41 /uL (0-23.9); URINE UROBILINOGEN 0.2 mg/dL (0.2-1.0); URINE WBC 6 /uL (0-25.8)
[2020-12-08 14:11] LABS: INR 1.25 (0.83-1.09)
[2020-12-08 14:27] LABS: ALBUMIN 3.1 g/dl (3.4-5.0); CALCIUM 8.5 mg/dL (8.5-10.1)
[2020-12-08 14:28] LABS: BLOOD UREA NITROGEN 72.7 mg/dL (7-18)
[2020-12-08 14:31] LABS: CREATININE 3.9 mg/dL (0.55-1.3)
[2020-12-08 14:32] LABS: BILIRUBIN,TOTAL 0.4 mg/dL (0.2-1); TOT PROT 7.8 g/dl (6.4-8.2)
[2020-12-08] MEDS ORDERED: CEFTRIAXONE 1,000 MG in DEXTROSE 5%-WATER - 50 ML IVPB ONE (18:26)
[2020-12-08] MEDS ORDERED: CEFTRIAXONE 1 GM/50 ML BAG ONE (18:38)
[2020-12-08] MEDS ORDERED: hydrALAZINE HCL 50 MG TABLET (FP) PO SCH (20:19)
[2020-12-08] MEDS ORDERED: DEXTROSE 5%-WATER - 50 ML IVPB ONE (22:49)
[2020-12-08] MEDS ORDERED: PIPERACILLIN/TAZOBACTAM 2.25 GM VIAL IVPB ONE (22:49)
[2020-12-08] MEDS: PIPERACILLIN/TAZOB 2.25 GM 2.25 GM in DEXTROSE 5%-WATER - 50 ML IVPB SCH (23:40)
[2020-12-09] MEDS: AZITHROMYCIN IVPB 500 MG/250 ML BAG IVPB SCH ×2 (00:56→11:18)
[2020-12-09] MEDS: PIPERACILLIN/TAZOB 2.25 GM 2.25 GM in DEXTROSE 5%-WATER - 50 ML IVPB SCH ×5 (02:13→17:32)
[2020-12-09] MEDS: HEPARIN NA (PORCINE) 5,000 UNITS/ML 1ML VIAL SQ SCH ×3 (06:52→21:46)
[2020-12-09] MEDS: INSULIN SLIDING SCALE (NOVOLOG) 1 VIAL SQ SCH ×3 (06:52→16:51)
[2020-12-09] MEDS: ACETAMINOPHEN 1000 MG/100 ML VIAL (NON FORMULARY) IVPB PRN ×2 (06:53→16:58)
[2020-12-09] MEDS ORDERED: INSULIN SLIDING SCALE (NOVOLOG) 1 VIAL SQ SCH (07:00)
[2020-12-09 07:52] LABS: INR 1.33 (0.83-1.09)
[2020-12-09 08:00] LABS: HEMATOCRIT 32.5 % (35.4-49); HEMOGLOBIN 10.9 GM/dL (11.7-16.9); MCH 30.6 pg (25.7-33.7); MCHC 33.7 g/dl (32.0-35.9); MEAN CELL VOLUME 90.7 fl (80-96); MEAN PLT VOLUME 8.4 fl (7.5-11.1); PLATELET COUNT 261 10^3/uL (134-434); RBC 3.58 M/mm3 (4.00-5.60); RDW 13.9 % (11.9-15.9); WHITE BLOOD COUNT 14.1 K/mm3 (4.0-10.0)
[2020-12-09] MEDS ORDERED: hydrALAZINE HCL 50 MG TABLET (FP) PO SCH (08:00)
[2020-12-09 08:02] LABS: BLOOD UREA NITROGEN 62.3 mg/dL (7-18); CALCIUM 8.3 mg/dL (8.5-10.1); MAGNESIUM 1.6 mg/dL (1.8-2.4)
[2020-12-09 08:05] LABS: CREATININE 3.7 mg/dL (0.55-1.3); PHOSPHOROUS 2.8 mg/dL (2.5-4.9)
[2020-12-09 08:06] LABS: BILIRUBIN,TOTAL 0.4 mg/dL (0.2-1)
[2020-12-09 08:07] LABS: TOT PROT 7.8 g/dl (6.4-8.2)
[2020-12-09 09:03] LABS: CHOLESTEROL 81 mg/dL (50-200); HDL CHOLESTEROL 25 mg/dL (40-60); LDL CHOLESTEROL (ONLY SJRH) 41 mg/dL (5-100); TRIGLYCERIDES 106 mg/dL (0-150)
[2020-12-09] MEDS ORDERED: MAGNESIUM SULF 50% (8.12 MEQ/2 ML-1 GM VIAL) IVPB ONE (09:06)
[2020-12-09] MEDS ORDERED: DEXTROSE 5%-WATER - 50 ML IVPB ONE ×2 (09:41→16:51)
[2020-12-09] MEDS ORDERED: PIPERACILLIN/TAZOBACTAM 2.25 GM VIAL IVPB ONE ×2 (09:41→16:51)
[2020-12-09] MEDS ORDERED: DEXTROSE 5%-0.45% SALINE 1,000 ML IV SCH (11:00)
[2020-12-09] MEDS: SODIUM CHLORIDE 1,000 ML IV SCH (11:30)
[2020-12-09] MEDS: METOPROLOL TARTRATE 50 MG TABLET (FP) PO SCH ×2 (11:34→23:22)
[2020-12-09] MEDS: SODIUM BICARBONATE 650 MG TABLET PO SCH (13:34)
[2020-12-09] MEDS: POLYETHYLENE GLYCOL (HEALTHYLAX) 3350 17 GM PACKET PO SCH ×2 (13:34→21:46)
[2020-12-09] MEDS ORDERED: ALBUTEROL SO4 2.5/IPRATROPIUM 0.5 INH SOL 3 ML VIAL.NEB. NEB PRN ×2 (15:45→15:53)
[2020-12-09] MEDS ORDERED: hydrALAZINE HCL 50 MG TABLET (FP) PO ONE (21:22)
[2020-12-09] MEDS: ATORVASTATIN CA 10 MG TABLET (FP) PO SCH (21:47)
[2020-12-09] MEDS ORDERED: INSULIN (LEVEMIR) 100 UNITS/ML UNITS SQ SCH (22:00)
[2020-12-10] MEDS ORDERED: PIPERACILLIN/TAZOBACTAM 2.25 GM VIAL IVPB ONE ×3 (01:09→17:04)
[2020-12-10] MEDS ORDERED: DEXTROSE 5%-WATER - 50 ML IVPB ONE ×3 (01:10→17:04)
[2020-12-10] MEDS: PIPERACILLIN/TAZOB 2.25 GM 2.25 GM in DEXTROSE 5%-WATER - 50 ML IVPB SCH ×3 (01:30→17:42)
[2020-12-10] MEDS: HEPARIN NA (PORCINE) 5,000 UNITS/ML 1ML VIAL SQ SCH ×3 (05:59→22:32)
[2020-12-10] MEDS: POLYETHYLENE GLYCOL (HEALTHYLAX) 3350 17 GM PACKET PO SCH ×3 (05:59→22:32)
[2020-12-10] MEDS: INSULIN SLIDING SCALE (NOVOLOG) 1 VIAL SQ SCH ×3 (06:00→17:43)
[2020-12-10] MEDS: INSULIN (LEVEMIR) 100 UNITS/ML UNITS SQ SCH (06:00)
[2020-12-10 07:17] LABS: BASO % 0.7 % (0-2.0); EOS % 2.6 % (0-4.5); HEMATOCRIT 29.8 % (35.4-49); HEMOGLOBIN 10.1 GM/dL (11.7-16.9); LYMPH % 14.7 % (8-40); MCH 30.5 pg (25.7-33.7); MCHC 33.9 g/dl (32.0-35.9); MEAN PLT VOLUME 7.9 fl (7.5-11.1); PLATELET COUNT 241 10^3/uL (134-434); RBC 3.31 M/mm3 (4.00-5.60); RDW 13.5 % (11.9-15.9); WHITE BLOOD COUNT 10.2 K/mm3 (4.0-10.0)
[2020-12-10 07:40] LABS: CALCIUM 8.1 mg/dL (8.5-10.1)
[2020-12-10 07:41] LABS: ALBUMIN 2.6 g/dl (3.4-5.0); MAGNESIUM 2.2 mg/dL (1.8-2.4)
[2020-12-10 07:44] LABS: CREATININE 3.7 mg/dL (0.55-1.3); PHOSPHOROUS 3.5 mg/dL (2.5-4.9)
[2020-12-10 07:45] LABS: BILIRUBIN,TOTAL 0.8 mg/dL (0.2-1)
[2020-12-10 07:46] LABS: TOT PROT 6.9 g/dl (6.4-8.2)
[2020-12-10] MEDS: KCL 10 MEQ IVPB 10 MEQ/100 ML INFUS.BAG IVPB SCH ×3 (10:41→13:55)
[2020-12-10] MEDS: METOPROLOL TARTRATE 50 MG TABLET (FP) PO SCH ×2 (10:41→22:32)
[2020-12-10] MEDS: SODIUM BICARBONATE 650 MG TABLET PO SCH (10:41)
[2020-12-10] MEDS: SODIUM CHLORIDE 1,000 ML IV SCH (12:10)
[2020-12-10] MEDS: hydrALAZINE HCL 50 MG TABLET (FP) PO SCH ×2 (13:27→22:32)
[2020-12-10] MEDS ORDERED: IRON SUCROSE INJECTION 100 MG in SODIUM CHLORIDE 95 ML IVPB ONE (13:42)
[2020-12-10] MEDS ORDERED: POTASSIUM CHLORIDE ORAL LIQUID 20 MEQ/15 ML PO ONE (14:53)
[2020-12-10] MEDS ORDERED: POTASSIUM CHLORIDE TABS 20 MEQ TABLET.ER (FP) PO ONE ×2 (14:55→22:00)
[2020-12-10] MEDS: ATORVASTATIN CA 10 MG TABLET (FP) PO SCH (22:31)
[2020-12-11] MEDS ORDERED: DEXTROSE 5%-WATER - 50 ML IVPB ONE ×3 (01:38→18:22)
[2020-12-11] MEDS ORDERED: PIPERACILLIN/TAZOBACTAM 2.25 GM VIAL IVPB ONE ×3 (01:38→18:22)
[2020-12-11] MEDS: PIPERACILLIN/TAZOB 2.25 GM 2.25 GM in DEXTROSE 5%-WATER - 50 ML IVPB SCH ×3 (01:53→18:27)
[2020-12-11] MEDS: SODIUM CHLORIDE 1,000 ML IV SCH ×2 (01:53→11:34)
[2020-12-11] MEDS: HEPARIN NA (PORCINE) 5,000 UNITS/ML 1ML VIAL SQ SCH ×3 (06:26→21:13)
[2020-12-11] MEDS: INSULIN (LEVEMIR) 100 UNITS/ML UNITS SQ SCH (06:27)
[2020-12-11] MEDS: hydrALAZINE HCL 50 MG TABLET (FP) PO SCH ×4 (06:27→21:13)
[2020-12-11] MEDS: POLYETHYLENE GLYCOL (HEALTHYLAX) 3350 17 GM PACKET PO SCH ×3 (06:27→21:13)
[2020-12-11] MEDS: INSULIN SLIDING SCALE (NOVOLOG) 1 VIAL SQ SCH ×3 (08:02→16:59)
[2020-12-11 08:27] LABS: BASO % 0.6 % (0-2.0); EOS % 3.4 % (0-4.5); HEMATOCRIT 30.9 % (35.4-49); HEMOGLOBIN 10.3 GM/dL (11.7-16.9); LYMPH % 15.3 % (8-40); MCH 30.3 pg (25.7-33.7); MCHC 33.4 g/dl (32.0-35.9); MEAN PLT VOLUME 8.3 fl (7.5-11.1); MONO % 14.2 % (3.8-10.2); NEUT % 66.5 % (42.8-82.8); PLATELET COUNT 252 10^3/uL (134-434); RBC 3.39 M/mm3 (4.00-5.60); RDW 13.6 % (11.9-15.9); WHITE BLOOD COUNT 8.1 K/mm3 (4.0-10.0)
[2020-12-11 08:50] LABS: ALBUMIN 2.7 g/dl (3.4-5.0); CALCIUM 8.3 mg/dL (8.5-10.1)
[2020-12-11 08:51] LABS: BLOOD UREA NITROGEN 40.2 mg/dL (7-18)
[2020-12-11 08:52] LABS: MAGNESIUM 1.9 mg/dL (1.8-2.4)
[2020-12-11 08:54] LABS: CREATININE 3.1 mg/dL (0.55-1.3); PHOSPHOROUS 2.8 mg/dL (2.5-4.9)
[2020-12-11 08:55] LABS: BILIRUBIN,TOTAL 0.5 mg/dL (0.2-1); TOT PROT 7.1 g/dl (6.4-8.2)
[2020-12-11] MEDS: SODIUM BICARBONATE 650 MG TABLET PO SCH (10:09)
[2020-12-11] MEDS: METOPROLOL TARTRATE 50 MG TABLET (FP) PO SCH ×2 (10:09→21:14)
[2020-12-11] MEDS: SIMETHICONE 80 MG TAB.CHEW (FP) PO PRN (10:14)
[2020-12-11] MEDS ORDERED: DEXTROSE 5%-NORMAL SALINE 1,000 ML IV SCH ×3 (17:15→19:09)
[2020-12-11] MEDS: ATORVASTATIN CA 10 MG TABLET (FP) PO SCH (21:13)
[2020-12-12] MEDS: PIPERACILLIN/TAZOB 2.25 GM 2.25 GM in DEXTROSE 5%-WATER - 50 ML IVPB SCH ×3 (01:53→17:09)
[2020-12-12] MEDS: INSULIN SLIDING SCALE (NOVOLOG) 1 VIAL SQ SCH ×3 (06:24→16:48)
[2020-12-12] MEDS: POLYETHYLENE GLYCOL (HEALTHYLAX) 3350 17 GM PACKET PO SCH (06:24)
[2020-12-12] MEDS: hydrALAZINE HCL 50 MG TABLET (FP) PO SCH ×3 (06:25→21:29)
[2020-12-12] MEDS: HEPARIN NA (PORCINE) 5,000 UNITS/ML 1ML VIAL SQ SCH ×3 (06:25→21:29)
[2020-12-12] MEDS ORDERED: ACETAMINOPHEN 325 MG TABLET (FP) PO PRN (08:15)
[2020-12-12 08:48] LABS: HEMATOCRIT 28.8 % (35.4-49); HEMOGLOBIN 9.6 GM/dL (11.7-16.9); MCH 30.1 pg (25.7-33.7); MCHC 33.5 g/dl (32.0-35.9); MEAN CELL VOLUME 89.8 fl (80-96); MEAN PLT VOLUME 7.8 fl (7.5-11.1); PLATELET COUNT 276 10^3/uL (134-434); RDW 13.6 % (11.9-15.9); WHITE BLOOD COUNT 6.7 K/mm3 (4.0-10.0)
[2020-12-12 09:08] LABS: BLOOD UREA NITROGEN 28.9 mg/dL (7-18); CALCIUM 7.9 mg/dL (8.5-10.1); MAGNESIUM 1.7 mg/dL (1.8-2.4)
[2020-12-12 09:11] LABS: CREATININE 2.9 mg/dL (0.55-1.3); PHOSPHOROUS 2.6 mg/dL (2.5-4.9)
[2020-12-12] MEDS ORDERED: PIPERACILLIN/TAZOBACTAM 2.25 GM VIAL IVPB ONE ×2 (09:39→16:34)
[2020-12-12] MEDS ORDERED: DEXTROSE 5%-WATER - 50 ML IVPB ONE ×2 (09:40→16:34)
[2020-12-12] MEDS: SODIUM BICARBONATE 650 MG TABLET PO SCH (09:46)
[2020-12-12] MEDS: METOPROLOL TARTRATE 50 MG TABLET (FP) PO SCH ×2 (09:46→21:30)
[2020-12-12] MEDS: amLODIPine BESYLATE 2.5 MG TABLET (FP) PO SCH (09:46)
[2020-12-12] MEDS ORDERED: amLODIPine BESYLATE 5 MG TABLET (FP) PO ONE (11:45)
[2020-12-12] MEDS ORDERED: SODIUM CHLORIDE 1,000 ML IV SCH (11:45)
[2020-12-12] MEDS: DEXTROSE 5%-0.45% SALINE 1,000 ML IV SCH (13:43)
[2020-12-12] MEDS ORDERED: IRON SUCROSE INJECTION 100 MG in SODIUM CHLORIDE 95 ML IVPB ONE (14:00)
[2020-12-12] MEDS ORDERED: MAGNESIUM 2GM/50ML STERILE WATER IVPB IVPB ONE (17:30)
[2020-12-12] MEDS: ATORVASTATIN CA 10 MG TABLET (FP) PO SCH (21:29)
[2020-12-13] MEDS ORDERED: PIPERACILLIN/TAZOBACTAM 2.25 GM VIAL IVPB ONE ×3 (01:30→16:57)
[2020-12-13] MEDS ORDERED: DEXTROSE 5%-WATER - 50 ML IVPB ONE ×3 (01:30→16:57)
[2020-12-13] MEDS: PIPERACILLIN/TAZOB 2.25 GM 2.25 GM in DEXTROSE 5%-WATER - 50 ML IVPB SCH ×3 (01:32→17:19)
[2020-12-13] MEDS: hydrALAZINE HCL 50 MG TABLET (FP) PO SCH ×3 (05:39→21:20)
[2020-12-13] MEDS: HEPARIN NA (PORCINE) 5,000 UNITS/ML 1ML VIAL SQ SCH ×3 (05:39→21:20)
[2020-12-13] MEDS: INSULIN SLIDING SCALE (NOVOLOG) 1 VIAL SQ SCH ×3 (06:30→17:19)
[2020-12-13] MEDS: amLODIPine BESYLATE 2.5 MG TABLET (FP) PO SCH (09:18)
[2020-12-13] MEDS: SODIUM BICARBONATE 650 MG TABLET PO SCH (09:18)
[2020-12-13] MEDS: METOPROLOL TARTRATE 50 MG TABLET (FP) PO SCH ×2 (09:18→21:20)
[2020-12-13] MEDS: POLYETHYLENE GLYCOL (HEALTHYLAX) 3350 17 GM PACKET PO SCH (09:19)
[2020-12-13] MEDS ORDERED: amLODIPine BESYLATE 5 MG TABLET (FP) PO SCH (10:00)
[2020-12-13] MEDS ORDERED: amLODIPine BESYLATE 5 MG TABLET (FP) PO ONE (12:06)
[2020-12-13 12:43] LABS: BASO % 0.8 % (0-2.0); EOS % 3.7 % (0-4.5); HEMATOCRIT 30.7 % (35.4-49); HEMOGLOBIN 10.3 GM/dL (11.7-16.9); LYMPH % 17.8 % (8-40); MCH 30.3 pg (25.7-33.7); MCHC 33.6 g/dl (32.0-35.9); MEAN CELL VOLUME 90.1 fl (80-96); MEAN PLT VOLUME 7.4 fl (7.5-11.1); MONO % 9.6 % (3.8-10.2); NEUT % 68.1 % (42.8-82.8); PLATELET COUNT 319 10^3/uL (134-434); RDW 13.4 % (11.9-15.9); WHITE BLOOD COUNT 6.7 K/mm3 (4.0-10.0)
[2020-12-13 13:11] LABS: BLOOD UREA NITROGEN 20.8 mg/dL (7-18); CALCIUM 8.8 mg/dL (8.5-10.1); MAGNESIUM 2.2 mg/dL (1.8-2.4)
[2020-12-13 13:13] LABS: CREATININE 2.8 mg/dL (0.55-1.3)
[2020-12-13 13:15] LABS: PHOSPHOROUS 2.6 mg/dL (2.5-4.9)
[2020-12-13] MEDS: ACETAMINOPHEN 325 MG TABLET (FP) PO PRN (13:24)
[2020-12-13] MEDS: DEXTROSE 5%-0.45% SALINE 1,000 ML IV SCH (13:24)
[2020-12-13] MEDS: ATORVASTATIN CA 10 MG TABLET (FP) PO SCH (21:19)
[2020-12-14] MEDS ORDERED: PIPERACILLIN/TAZOBACTAM 2.25 GM VIAL IVPB ONE ×3 (01:09→17:09)
[2020-12-14] MEDS ORDERED: DEXTROSE 5%-WATER - 50 ML IVPB ONE ×3 (01:10→17:09)
[2020-12-14] MEDS: PIPERACILLIN/TAZOB 2.25 GM 2.25 GM in DEXTROSE 5%-WATER - 50 ML IVPB SCH ×3 (01:26→17:44)
[2020-12-14] MEDS: ACETAMINOPHEN 325 MG TABLET (FP) PO PRN (01:37)
[2020-12-14] MEDS: hydrALAZINE HCL 50 MG TABLET (FP) PO SCH ×3 (05:17→21:01)
[2020-12-14] MEDS: HEPARIN NA (PORCINE) 5,000 UNITS/ML 1ML VIAL SQ SCH ×3 (05:19→21:01)
[2020-12-14] MEDS: INSULIN SLIDING SCALE (NOVOLOG) 1 VIAL SQ SCH ×3 (06:24→17:06)
[2020-12-14 06:58] LABS: BASO % 1.1 % (0-2.0); EOS % 3.8 % (0-4.5); HEMATOCRIT 29.6 % (35.4-49); HEMOGLOBIN 10.1 GM/dL (11.7-16.9); LYMPH % 23.6 % (8-40); MCH 30.6 pg (25.7-33.7); MCHC 34.1 g/dl (32.0-35.9); MEAN CELL VOLUME 89.8 fl (80-96); MEAN PLT VOLUME 7.5 fl (7.5-11.1); MONO % 10.7 % (3.8-10.2); NEUT % 60.8 % (42.8-82.8); PLATELET COUNT 279 10^3/uL (134-434); RDW 13.5 % (11.9-15.9); WHITE BLOOD COUNT 6.4 K/mm3 (4.0-10.0)
[2020-12-14 07:16] LABS: CALCIUM 8.2 mg/dL (8.5-10.1)
[2020-12-14 07:18] LABS: BLOOD UREA NITROGEN 17.8 mg/dL (7-18)
[2020-12-14 07:21] LABS: CREATININE 2.6 mg/dL (0.55-1.3); PHOSPHOROUS 2.9 mg/dL (2.5-4.9)
[2020-12-14] MEDS: SODIUM BICARBONATE 650 MG TABLET PO SCH (09:02)
[2020-12-14] MEDS: amLODIPine BESYLATE 10 MG TABLET (FP) PO SCH (09:02)
[2020-12-14] MEDS: POLYETHYLENE GLYCOL (HEALTHYLAX) 3350 17 GM PACKET PO SCH (09:02)
[2020-12-14] MEDS: METOPROLOL TARTRATE 50 MG TABLET (FP) PO SCH ×2 (09:02→21:01)
[2020-12-14] MEDS: SIMETHICONE 80 MG TAB.CHEW (FP) PO PRN ×2 (09:27→21:01)
[2020-12-14 16:00] VITALS: BMI 40.5
[2020-12-14] MEDS: ATORVASTATIN CA 10 MG TABLET (FP) PO SCH (21:01)
[2020-12-15] MEDS ORDERED: DEXTROSE 5%-WATER - 50 ML IVPB ONE ×3 (01:06→16:32)
[2020-12-15] MEDS ORDERED: PIPERACILLIN/TAZOBACTAM 2.25 GM VIAL IVPB ONE ×3 (01:06→16:32)
[2020-12-15] MEDS: PIPERACILLIN/TAZOB 2.25 GM 2.25 GM in DEXTROSE 5%-WATER - 50 ML IVPB SCH ×3 (01:47→17:00)
[2020-12-15] MEDS: hydrALAZINE HCL 50 MG TABLET (FP) PO SCH ×3 (05:15→21:08)
[2020-12-15] MEDS: HEPARIN NA (PORCINE) 5,000 UNITS/ML 1ML VIAL SQ SCH ×3 (05:16→21:08)
[2020-12-15] MEDS: INSULIN SLIDING SCALE (NOVOLOG) 1 VIAL SQ SCH ×3 (06:31→16:51)
[2020-12-15 08:56] LABS: BASO % 0.8 % (0-2.0); EOS % 3.2 % (0-4.5); HEMATOCRIT 32.3 % (35.4-49); HEMOGLOBIN 10.8 GM/dL (11.7-16.9); LYMPH % 17.1 % (8-40); MCH 30.4 pg (25.7-33.7); MCHC 33.4 g/dl (32.0-35.9); MEAN PLT VOLUME 7.7 fl (7.5-11.1); MONO % 9.4 % (3.8-10.2); NEUT % 69.5 % (42.8-82.8); PLATELET COUNT 326 10^3/uL (134-434); RBC 3.55 M/mm3 (4.00-5.60); RDW 13.6 % (11.9-15.9); WHITE BLOOD COUNT 7.9 K/mm3 (4.0-10.0)
[2020-12-15] MEDS: METOPROLOL TARTRATE 50 MG TABLET (FP) PO SCH ×2 (09:08→21:08)
[2020-12-15] MEDS: POLYETHYLENE GLYCOL (HEALTHYLAX) 3350 17 GM PACKET PO SCH (09:08)
[2020-12-15] MEDS: SODIUM BICARBONATE 650 MG TABLET PO SCH (09:08)
[2020-12-15] MEDS: amLODIPine BESYLATE 10 MG TABLET (FP) PO SCH (09:09)
[2020-12-15] MEDS: SIMETHICONE 80 MG TAB.CHEW (FP) PO PRN ×3 (09:10→21:15)
[2020-12-15 09:21] LABS: CALCIUM 8.6 mg/dL (8.5-10.1)
[2020-12-15 09:23] LABS: BLOOD UREA NITROGEN 13.1 mg/dL (7-18); MAGNESIUM 1.9 mg/dL (1.8-2.4)
[2020-12-15 09:26] LABS: CREATININE 2.8 mg/dL (0.55-1.3); PHOSPHOROUS 2.8 mg/dL (2.5-4.9)
[2020-12-15] MEDS: HYDROCHLOROTHIAZIDE 25 MG TABLET (FP) PO SCH (13:13)
[2020-12-15] MEDS: ATORVASTATIN CA 10 MG TABLET (FP) PO SCH (21:08)
[2020-12-16] MEDS ORDERED: PIPERACILLIN/TAZOBACTAM 2.25 GM VIAL IVPB ONE ×2 (01:26→10:11)
[2020-12-16] MEDS ORDERED: DEXTROSE 5%-WATER - 50 ML IVPB ONE ×2 (01:26→10:11)
[2020-12-16] MEDS: PIPERACILLIN/TAZOB 2.25 GM 2.25 GM in DEXTROSE 5%-WATER - 50 ML IVPB SCH ×2 (01:47→10:21)
[2020-12-16] MEDS: INSULIN SLIDING SCALE (NOVOLOG) 1 VIAL SQ SCH ×3 (06:10→16:40)
[2020-12-16] MEDS: hydrALAZINE HCL 50 MG TABLET (FP) PO SCH ×2 (06:10→14:19)
[2020-12-16 07:14] LABS: BASO % 0.7 % (0-2.0); EOS % 3.1 % (0-4.5); HEMATOCRIT 30.6 % (35.4-49); HEMOGLOBIN 10.2 GM/dL (11.7-16.9); MCH 30.1 pg (25.7-33.7); MCHC 33.4 g/dl (32.0-35.9); MEAN PLT VOLUME 7.2 fl (7.5-11.1); MONO % 10.3 % (3.8-10.2); NEUT % 67.9 % (42.8-82.8); PLATELET COUNT 307 10^3/uL (134-434); RDW 13.6 % (11.9-15.9); WHITE BLOOD COUNT 7.7 K/mm3 (4.0-10.0)
[2020-12-16 07:31] LABS: BLOOD UREA NITROGEN 18.2 mg/dL (7-18); CALCIUM 8.6 mg/dL (8.5-10.1); MAGNESIUM 1.8 mg/dL (1.8-2.4)
[2020-12-16 07:34] LABS: CREATININE 2.7 mg/dL (0.55-1.3); PHOSPHOROUS 2.9 mg/dL (2.5-4.9)
[2020-12-16] MEDS ORDERED: ISOSORBIDE MONONITRATE 30 MG TAB.SR.24H (FP) PO SCH (10:00)
[2020-12-16] MEDS: SODIUM BICARBONATE 650 MG TABLET PO SCH (10:19)
[2020-12-16] MEDS: amLODIPine BESYLATE 10 MG TABLET (FP) PO SCH (10:19)
[2020-12-16] MEDS: METOPROLOL TARTRATE 50 MG TABLET (FP) PO SCH (10:19)
[2020-12-16] MEDS: HYDROCHLOROTHIAZIDE 25 MG TABLET (FP) PO SCH (10:19)
[2020-12-16] MEDS: POLYETHYLENE GLYCOL (HEALTHYLAX) 3350 17 GM PACKET PO SCH (10:22)
[2020-12-16 15:10] VITALS: BP 148/70; PULSE 57; TEMP 98.9
== END 2020-12-16 18:30 | disposition home or self-care (01) | DRG 871 ==
LOC: JER 12:16 → JERBED 18:50 → J4S 21:44
PROVIDERS: ADMIT Internal Medicine; ATTEND Internal Medicine
DX: A41.89 Other specified sepsis (principal); J18.9 Pneumonia, unspecified organism; K57.32 Diverticulitis of large intestine without perforation or abscess without bleeding; N18.4 Chronic kidney disease, stage 4 (severe); Z68.41 Body mass index [BMI] 40.0-44.9, adult; E87.2 Acidosis; N17.9 Acute kidney failure, unspecified; R00.0 Tachycardia, unspecified; J44.9 Chronic obstructive pulmonary disease, unspecified; R50.9 Fever, unspecified; E78.5 Hyperlipidemia, unspecified; D72.829 Elevated white blood cell count, unspecified; D64.9 Anemia, unspecified; K59.09 Other constipation; E11.65 Type 2 diabetes mellitus with hyperglycemia; G40.909 Epilepsy, unspecified, not intractable, without status epilepticus; E66.9 Obesity, unspecified; D35.00 Benign neoplasm of unspecified adrenal gland; I12.9 Hypertensive chronic kidney disease with stage 1 through stage 4 chronic kidney disease, or unspecified chronic kidney disease; E11.22 Type 2 diabetes mellitus with diabetic chronic kidney disease; E88.09 Other disorders of plasma-protein metabolism, not elsewhere classified; E87.6 Hypokalemia; E83.51 Hypocalcemia; E83.42 Hypomagnesemia; Z96.641 Presence of right artificial hip joint; Z85.51 Personal history of malignant neoplasm of bladder; Z85.46 Personal history of malignant neoplasm of prostate
CPT/HCPCS: 36415; 74018-TC-FY; 74176-TC; 80048; 80053; 80061; 81003; 82010; 82550; 82728; 82962; 83036; 83540; 83550; 83605; 83690; 83721; 83735; 84100; 84443; 84484; 85025; 85027; 85610; 86140; 87040; 87045; 87046; 87086; 87186; 87324; 87449; 93005; 93010; 93306-TC; 99285-25; C9803; J0131; J1644; J1756; U0003; U0005

== ENCOUNTER 2021-01-21 04:21 | Day surgery (SDC) | payer OTHER ==
[2021-01-19 13:28] VITALS: BMI 39.5
[2021-01-21] MEDS ORDERED: PAPAVERINE HCL 30 MG/1 ML 10 ML VIAL NR ONE (07:21)
[2021-01-21] MEDS ORDERED: HEPARIN NA (PORCINE) 5,000 UNITS/ML 1ML VIAL ONE (07:21)
[2021-01-21] MEDS ORDERED: LIDOCAINE HCL 1%, 10 MG/ML (20ML VIAL) ONE (07:21)
[2021-01-21] MEDS ORDERED: POVIDONE-IODINE OINTMENT 10% - 28.4 GM TUBE ONE (07:21)
[2021-01-21] MEDS ORDERED: fentaNYL CITRATE 250 MCG/5 ML VIAL ONE (08:10)
[2021-01-21] MEDS ORDERED: SUCCINYLCHOLINE CHLORIDE 200 MG/10 ML SYRINGE ONE (08:10)
[2021-01-21] MEDS ORDERED: MIDAZOLAM HCL 2 MG/2 ML SINGLE DOSE VIAL ONE (08:10)
[2021-01-21] MEDS ORDERED: PROPOFOL 20 ML ONE (08:10)
[2021-01-21] MEDS ORDERED: ceFAZolin SODIUM 1 GM VIAL IVPB ONE (08:28)
[2021-01-21] MEDS ORDERED: HEPARIN NA (PORCINE) 5,000 UNITS/ML 1ML VIAL SQ ONE (08:33)
[2021-01-21] MEDS ORDERED: POVIDONE-IODINE OINTMENT 10% - 28.4 GM TUBE TP ONE (09:00)
[2021-01-21] MEDS ORDERED: PROMETHAZINE HCL 25 MG/1 ML VIAL IVPB PRN (09:39)
[2021-01-21] MEDS ORDERED: ONDANSETRON 4 MG/2 ML VIAL IVPUSH PRN (09:39)
[2021-01-21] MEDS ORDERED: DEXAMETHASONE SOD PHOSPHATE 4 MG/1 ML VIAL ONE (10:01)
[2021-01-21 11:50] VITALS: BP 153/63; PULSE 60; TEMP 97.8
== END 2021-01-21 11:35 | disposition home or self-care (01) ==
LOC: JASU-SURG 04:21
PROVIDERS: ATTEND Surgery
PROC: 03180ZD Bypass Left Brachial Artery to Upper Arm Vein, Open Approach (ICD-10-PCS; principal; 2021-01-21 08:00)
DX: I12.9 Hypertensive chronic kidney disease with stage 1 through stage 4 chronic kidney disease, or unspecified chronic kidney disease (principal); N18.4 Chronic kidney disease, stage 4 (severe)
CPT/HCPCS: 82962; 94760; J1644

== ENCOUNTER 2021-03-02 04:34 | Day surgery (SDC) | payer OTHER ==
[2021-02-27 13:05] VITALS: BMI 39.5
[2021-03-02] MEDS ORDERED: HEPARIN NA (PORCINE) 5,000 UNITS/ML 1ML VIAL ONE (14:00)
[2021-03-02] MEDS ORDERED: LIDOCAINE HCL 1%, 10 MG/ML (20ML VIAL) ONE (14:00)
[2021-03-02] MEDS ORDERED: POVIDONE-IODINE OINTMENT 10% - 28.4 GM TUBE ONE (14:01)
[2021-03-02] MEDS ORDERED: PROPOFOL 20 ML ONE ×4 (14:14→16:28)
[2021-03-02] MEDS ORDERED: MIDAZOLAM HCL 2 MG/2 ML SINGLE DOSE VIAL ONE (14:14)
[2021-03-02] MEDS ORDERED: PAPAVERINE HCL 30 MG/1 ML 10 ML VIAL NR ONE (14:20)
[2021-03-02] MEDS ORDERED: ceFAZolin 2 GRAM PREMIX BAG IVPB ONE (15:40)
[2021-03-02] MEDS ORDERED: LIDOCAINE HCL 1%, 10 MG/ML (20ML VIAL) NR ONE (15:46)
[2021-03-02] MEDS ORDERED: oxyCODONE HCL 5 MG TABLET PO PRN ×2 (16:05)
[2021-03-02] MEDS ORDERED: ONDANSETRON 4 MG/2 ML VIAL IVPUSH PRN (16:05)
[2021-03-02] MEDS ORDERED: POVIDONE-IODINE OINTMENT 10% - 28.4 GM TUBE TP ONE (16:57)
[2021-03-02] MEDS ORDERED: ceFAZolin SODIUM 1 GM VIAL ONE (17:14)
[2021-03-02] MEDS ORDERED: ONDANSETRON 4 MG/2 ML VIAL ONE (17:14)
[2021-03-02] MEDS ORDERED: oxyCODONE HCL 5 MG TABLET ONE (18:22)
[2021-03-02 19:18] VITALS: BP 147/58; PULSE 58; TEMP 97.8
== END 2021-03-02 19:05 | disposition home or self-care (01) ==
LOC: JASU-SURG 04:34
PROVIDERS: ATTEND Surgery
PROC: 03180ZD Bypass Left Brachial Artery to Upper Arm Vein, Open Approach (ICD-10-PCS; principal; 2021-03-02 13:00)
DX: I12.0 Hypertensive chronic kidney disease with stage 5 chronic kidney disease or end stage renal disease (principal); N18.6 End stage renal disease; E11.9 Type 2 diabetes mellitus without complications; Z79.4 Long term (current) use of insulin; Z99.2 Dependence on renal dialysis
CPT/HCPCS: 36415; 82962; 84132; 94760; J1644

== ENCOUNTER 2021-03-03 14:06 | Emergency (ER) | payer OTHER ==
[2021-03-03 14:37] VITALS: TEMP 99.3; BMI 40.7
[2021-03-03 16:29] VITALS: BP 138/62; PULSE 63
== END 2021-03-03 16:29 | disposition home or self-care (01) ==
LOC: JER 14:06
DX: Z99.2 Dependence on renal dialysis (principal)
CPT/HCPCS: 99281-25

== ENCOUNTER 2021-04-22 14:37 | Inpatient (IN) | payer OTHER ==
[2021-04-22 16:47] LABS: BASO % 0.7 % (0-2.0); EOS % 6.7 % (0-4.5); HEMOGLOBIN 11.4 GM/dL (11.7-16.9); LYMPH % 20.6 % (8-40); MCH 29.5 pg (25.7-33.7); MCHC 33.5 g/dl (32.0-35.9); MEAN CELL VOLUME 88.1 fl (80-96); MEAN PLT VOLUME 8.3 fl (7.5-11.1); MONO % 9.1 % (3.8-10.2); NEUT % 62.9 % (42.8-82.8); PLATELET COUNT 227 10^3/uL (134-434); RBC 3.86 M/mm3 (4.00-5.60); RDW 14.6 % (11.9-15.9); WHITE BLOOD COUNT 8.7 K/mm3 (4.0-10.0)
[2021-04-22 17:06] LABS: CALCIUM 8.7 mg/dL (8.5-10.1)
[2021-04-22 17:07] LABS: ALBUMIN 3.6 g/dl (3.4-5.0); BLOOD UREA NITROGEN 73.7 mg/dL (7-18); MAGNESIUM 1.9 mg/dL (1.8-2.4)
[2021-04-22 17:09] LABS: CREATININE 3.9 mg/dL (0.55-1.3); PHOSPHOROUS 2.9 mg/dL (2.5-4.9)
[2021-04-22 17:11] LABS: BILIRUBIN,TOTAL 0.2 mg/dL (0.2-1); TOT PROT 7.6 g/dl (6.4-8.2)
[2021-04-23 00:06] VITALS: BMI 39.9
[2021-04-23 09:26] LABS: BASO % 0.7 % (0-2.0); EOS % 7.5 % (0-4.5); HEMATOCRIT 33.6 % (35.4-49); HEMOGLOBIN 11.4 GM/dL (11.7-16.9); MCH 30.1 pg (25.7-33.7); MEAN CELL VOLUME 88.8 fl (80-96); MEAN PLT VOLUME 8.4 fl (7.5-11.1); NEUT % 57.8 % (42.8-82.8); PLATELET COUNT 220 10^3/uL (134-434); RBC 3.79 M/mm3 (4.00-5.60); RDW 14.7 % (11.9-15.9); WHITE BLOOD COUNT 7.6 K/mm3 (4.0-10.0)
[2021-04-23 10:43] LABS: ALBUMIN 3.1 g/dl (3.4-5.0); ALK PHOS 91 U/L (45-117); ANION GAP 10 MMOL/L (8-16); BILIRUBIN,TOTAL 0.5 mg/dL (0.2-1); BLOOD UREA NITROGEN 57.7 mg/dL (7-18); CALCIUM 8.9 mg/dL (8.5-10.1); CHLORIDE 112 mmol/L (98-107); CO2 20 mmol/L (21-32); CREATININE 3.6 mg/dL (0.55-1.3); GLUCOSE,RANDOM 98 mg/dL (74-106); MAGNESIUM 1.9 mg/dL (1.8-2.4); PHOSPHOROUS 3.4 mg/dL (2.5-4.9); SGOT/AST 22 U/L (15-37); SGPT/ALT 23 U/L (13-61); SODIUM 142 mmol/L (136-145); TOT PROT 6.9 g/dl (6.4-8.2)
[2021-04-24 11:13] LABS: BASO % 0.8 % (0-2.0); EOS % 7.4 % (0-4.5); HEMATOCRIT 32.4 % (35.4-49); HEMOGLOBIN 11.1 GM/dL (11.7-16.9); LYMPH % 19.3 % (8-40); MCH 30.1 pg (25.7-33.7); MCHC 34.3 g/dl (32.0-35.9); MEAN CELL VOLUME 87.7 fl (80-96); MEAN PLT VOLUME 8.4 fl (7.5-11.1); MONO % 12.6 % (3.8-10.2); NEUT % 59.9 % (42.8-82.8); PLATELET COUNT 202 10^3/uL (134-434); RDW 14.4 % (11.9-15.9); WHITE BLOOD COUNT 6.8 K/mm3 (4.0-10.0)
[2021-04-24 11:36] LABS: BLOOD UREA NITROGEN 46.3 mg/dL (7-18)
[2021-04-24 11:38] LABS: CALCIUM 8.7 mg/dL (8.5-10.1); MAGNESIUM 1.9 mg/dL (1.8-2.4)
[2021-04-24 11:40] LABS: CREATININE 3.4 mg/dL (0.55-1.3); PHOSPHOROUS 2.9 mg/dL (2.5-4.9)
[2021-04-25 10:40] LABS: BASO % 0.6 % (0-2.0); HEMATOCRIT 33.9 % (35.4-49); HEMOGLOBIN 11.7 GM/dL (11.7-16.9); LYMPH % 19.8 % (8-40); MCH 30.6 pg (25.7-33.7); MCHC 34.5 g/dl (32.0-35.9); MEAN CELL VOLUME 88.7 fl (80-96); MEAN PLT VOLUME 8.5 fl (7.5-11.1); MONO % 9.4 % (3.8-10.2); NEUT % 62.2 % (42.8-82.8); PLATELET COUNT 227 10^3/uL (134-434); RBC 3.82 M/mm3 (4.00-5.60); RDW 14.7 % (11.9-15.9)
[2021-04-25 11:53] LABS: ALBUMIN 3.3 g/dl (3.4-5.0); BILIRUBIN,TOTAL 0.4 mg/dL (0.2-1); BLOOD UREA NITROGEN 40.3 mg/dL (7-18); CALCIUM 8.7 mg/dL (8.5-10.1); CREATININE 3.7 mg/dL (0.55-1.3); PHOSPHOROUS 2.6 mg/dL (2.5-4.9); TOT PROT 7.4 g/dl (6.4-8.2)
[2021-04-26 10:18] LABS: BASO % 0.8 % (0-2.0); EOS % 6.9 % (0-4.5); HEMATOCRIT 34.1 % (35.4-49); HEMOGLOBIN 11.7 GM/dL (11.7-16.9); LYMPH % 23.9 % (8-40); MCH 30.5 pg (25.7-33.7); MCHC 34.4 g/dl (32.0-35.9); MEAN CELL VOLUME 88.8 fl (80-96); MEAN PLT VOLUME 8.7 fl (7.5-11.1); MONO % 10.4 % (3.8-10.2); PLATELET COUNT 201 10^3/uL (134-434); RBC 3.84 M/mm3 (4.00-5.60); RDW 14.4 % (11.9-15.9); WHITE BLOOD COUNT 7.2 K/mm3 (4.0-10.0)
[2021-04-26 11:41] LABS: BLOOD UREA NITROGEN 38.7 mg/dL (7-18); CALCIUM 8.9 mg/dL (8.5-10.1); CREATININE 3.7 mg/dL (0.55-1.3); MAGNESIUM 2.2 mg/dL (1.8-2.4); PHOSPHOROUS 2.5 mg/dL (2.5-4.9)
[2021-04-27 11:51] LABS: EOS % 6.3 % (0-4.5); HEMOGLOBIN 11.3 GM/dL (11.7-16.9); LYMPH % 20.8 % (8-40); MCH 30.6 pg (25.7-33.7); MCHC 34.3 g/dl (32.0-35.9); MEAN CELL VOLUME 89.2 fl (80-96); MEAN PLT VOLUME 8.4 fl (7.5-11.1); MONO % 10.9 % (3.8-10.2); PLATELET COUNT 179 10^3/uL (134-434); RDW 14.9 % (11.9-15.9); WHITE BLOOD COUNT 6.8 K/mm3 (4.0-10.0)
[2021-04-27 12:34] LABS: ALBUMIN 3.1 g/dl (3.4-5.0); BILIRUBIN,TOTAL 0.2 mg/dL (0.2-1); BLOOD UREA NITROGEN 34.5 mg/dL (7-18); CALCIUM 8.7 mg/dL (8.5-10.1); CREATININE 3.5 mg/dL (0.55-1.3); MAGNESIUM 2.2 mg/dL (1.8-2.4); PHOSPHOROUS 2.4 mg/dL (2.5-4.9); TOT PROT 6.8 g/dl (6.4-8.2)
[2021-04-27 15:43] VITALS: BP 156/72; PULSE 59; TEMP 98.3
== END 2021-04-27 18:20 | disposition home or self-care (01) | DRG 392 ==
LOC: JER 14:37 → JERBED 15:48 → J5S 23:08
PROVIDERS: ADMIT Internal Medicine; ATTEND Internal Medicine
DX: K57.32 Diverticulitis of large intestine without perforation or abscess without bleeding (principal); N18.5 Chronic kidney disease, stage 5; I12.0 Hypertensive chronic kidney disease with stage 5 chronic kidney disease or end stage renal disease; E11.22 Type 2 diabetes mellitus with diabetic chronic kidney disease; K20.90 Esophagitis, unspecified without bleeding; K29.70 Gastritis, unspecified, without bleeding; E66.9 Obesity, unspecified; Z68.39 Body mass index [BMI] 39.0-39.9, adult; E78.5 Hyperlipidemia, unspecified
CPT/HCPCS: 36415; 74176-TC; 80048; 80053; 82962; 83605; 83690; 83735; 84100; 85025; 86140; 93005; 93010; 97116-GP; 97161-GP; 99285-25; C9803; J0131; J1644; J3480; U0003; U0005

== ENCOUNTER 2021-05-27 04:24 | Day surgery (SDC) | payer OTHER ==
[2021-05-21 14:10] VITALS: BMI 38.5
[2021-05-27] MEDS ORDERED: HEPARIN NA (PORCINE) 5,000 UNITS/ML 1ML VIAL ONE (07:28)
[2021-05-27] MEDS ORDERED: LIDOCAINE HCL 1%, 10 MG/ML (20ML VIAL) ONE ×2 (07:28→08:45)
[2021-05-27] MEDS ORDERED: DEXMEDETOMIDINE HCL 200 MCG/2 ML IVPB ONE (08:09)
[2021-05-27] MEDS ORDERED: MIDAZOLAM HCL 2 MG/2 ML SINGLE DOSE VIAL ONE ×4 (08:14→08:25)
[2021-05-27] MEDS ORDERED: ceFAZolin SODIUM 1 GM VIAL IVPB ONE (08:20)
[2021-05-27] MEDS ORDERED: PROPOFOL 20 ML ONE ×3 (08:21)
[2021-05-27] MEDS ORDERED: KETAMINE HCL 200 MG/20 ML VIAL ONE (08:27)
[2021-05-27] MEDS ORDERED: LIDOCAINE HCL 1%, 10 MG/ML (20ML VIAL) SQ ONE ×2 (08:31)
[2021-05-27] MEDS ORDERED: HEPARIN NA (PORCINE) 5,000 UNITS/ML 1ML VIAL SQ ONE (08:37)
[2021-05-27] MEDS ORDERED: PAPAVERINE HCL 30 MG/1 ML 10 ML VIAL NR ONE (09:17)
[2021-05-27] MEDS ORDERED: POVIDONE-IODINE OINTMENT 10% - 28.4 GM TUBE ONE (10:12)
[2021-05-27] MEDS ORDERED: POVIDONE-IODINE OINTMENT 10% - 28.4 GM TUBE TP ONE (10:14)
[2021-05-27] MEDS ORDERED: oxyCODONE HCL 5 MG TABLET PO PRN (10:33)
[2021-05-27] MEDS ORDERED: ONDANSETRON 4 MG/2 ML VIAL IVPUSH PRN (10:33)
[2021-05-27] MEDS ORDERED: oxyCODONE HCL 5 MG TABLET ONE (13:24)
[2021-05-27 13:59] VITALS: BP 125/63; PULSE 58; TEMP 98
== END 2021-05-27 14:05 | disposition home or self-care (01) ==
LOC: JASU-SURG 04:24
PROVIDERS: ATTEND Surgery
PROC: 03180ZD Bypass Left Brachial Artery to Upper Arm Vein, Open Approach (ICD-10-PCS; principal; 2021-05-27 08:00)
DX: I12.0 Hypertensive chronic kidney disease with stage 5 chronic kidney disease or end stage renal disease (principal); E11.22 Type 2 diabetes mellitus with diabetic chronic kidney disease; N18.6 End stage renal disease; Z99.2 Dependence on renal dialysis; Z79.4 Long term (current) use of insulin
CPT/HCPCS: 82962; 94760; J1644

== ENCOUNTER 2021-08-14 04:34 | Day surgery (SDC) | payer OTHER ==
[2021-08-12 12:45] VITALS: BMI 39.7
[2021-08-14] MEDS ORDERED: POVIDONE-IODINE OINTMENT 10% - 28.4 GM TUBE ONE (14:36)
[2021-08-14] MEDS ORDERED: LIDOCAINE HCL 1%, 10 MG/ML (20ML VIAL) ONE (14:36)
[2021-08-14] MEDS ORDERED: HEPARIN NA (PORCINE) 5,000 UNITS/ML 1ML VIAL ONE (14:37)
[2021-08-14] MEDS ORDERED: PAPAVERINE HCL 30 MG/1 ML 10 ML VIAL NR ONE (14:37)
[2021-08-14] MEDS ORDERED: ONDANSETRON 4 MG/2 ML VIAL ONE ×2 (15:38→19:09)
[2021-08-14] MEDS ORDERED: PROPOFOL 20 ML ONE (15:38)
[2021-08-14] MEDS ORDERED: LIDOCAINE HCL 2% 100 MG/5 ML DISP.SYRIN ONE (15:38)
[2021-08-14] MEDS ORDERED: KETOROLAC TROMETHAMINE 30 MG/1 ML VIAL ONE (15:38)
[2021-08-14] MEDS ORDERED: DEXAMETHASONE SOD PHOSPHATE 4 MG/1 ML VIAL ONE (15:38)
[2021-08-14] MEDS ORDERED: MIDAZOLAM HCL 2 MG/2 ML SINGLE DOSE VIAL ONE (15:39)
[2021-08-14] MEDS ORDERED: ceFAZolin SODIUM 1 GM VIAL IVPB ONE (16:30)
[2021-08-14] MEDS ORDERED: POVIDONE-IODINE OINTMENT 10% - 28.4 GM TUBE TP ONE (17:50)
[2021-08-14] MEDS ORDERED: ONDANSETRON 4 MG/2 ML VIAL IVPUSH PRN (18:06)
[2021-08-14] MEDS ORDERED: oxyCODONE HCL 5 MG TABLET PO PRN (18:06)
[2021-08-14] MEDS ORDERED: SODIUM CHLORIDE 1,000 ML IV SCH (18:15)
[2021-08-14] MEDS ORDERED: oxyCODONE HCL 5 MG TABLET ONE (19:09)
[2021-08-14 19:23] VITALS: TEMP 97.8
[2021-08-14 19:43] VITALS: BP 137/72; PULSE 65
== END 2021-08-14 20:00 | disposition home or self-care (01) ==
LOC: JASU-SURG 04:34
PROVIDERS: ATTEND Surgery
PROC: 03160JD Bypass Left Axillary Artery to Upper Arm Vein with Synthetic Substitute, Open Approach (ICD-10-PCS; principal; 2021-08-14 16:00)
DX: I12.0 Hypertensive chronic kidney disease with stage 5 chronic kidney disease or end stage renal disease (principal); E11.22 Type 2 diabetes mellitus with diabetic chronic kidney disease; N18.6 End stage renal disease; Z99.2 Dependence on renal dialysis; Z79.4 Long term (current) use of insulin
CPT/HCPCS: 82962; 94760; J1644

== ENCOUNTER 2022-02-11 04:34 | Day surgery (SDC) | payer OTHER ==
[2022-02-09 14:29] VITALS: BMI 40.5
[2022-02-11 09:03] VITALS: BP 120/53; PULSE 65; RESP 16
[2022-02-11 10:49] VITALS: TEMP 98.9
== END 2022-02-11 09:15 | disposition home or self-care (01) ==
LOC: JASU-ENDO 04:34
PROVIDERS: ATTEND Internal Medicine Gastroenterology
PROC: 0DBH8ZX Excision of Cecum, Via Natural or Artificial Opening Endoscopic, Diagnostic (ICD-10-PCS; principal; 2022-02-11 08:00)
DX: Z12.11 Encounter for screening for malignant neoplasm of colon (principal); D12.0 Benign neoplasm of cecum; K57.30 Diverticulosis of large intestine without perforation or abscess without bleeding; K64.8 Other hemorrhoids; Z86.010 Personal history of colon polyps; I10 Essential (primary) hypertension
CPT/HCPCS: 36415; 82962; 84132; 88305-TC

== ENCOUNTER 2022-08-26 16:53 | Inpatient (IN) | payer OTHER ==
[2022-08-26] MEDS ORDERED: ACETAMINOPHEN 325 MG TABLET (FP) PO ONE ×2 (17:55→19:33)
[2022-08-26] MEDS ORDERED: ACETAMINOPHEN 325 MG TABLET (FP) ONE ×2 (18:17→20:08)
[2022-08-26] MEDS ORDERED: ALBUTEROL SO4 2.5/IPRATROPIUM 0.5 INH SOL 3 ML VIAL.NEB. NEB ONE ×4 (18:31→20:09)
[2022-08-26 19:13] LABS: VENOUS BASE EXCESS 1.4 mmol/L (-2-2); VENOUS O2 SATURATION 67.1 % (70-80); VENOUS PH 7.38 (7.310-7.410)
[2022-08-26 19:30] LABS: BASO % 0.4 % (0-2.0); EOS % 5.7 % (0-4.5); HEMATOCRIT 32.5 % (35.4-49); HEMOGLOBIN 11.2 GM/dL (11.7-16.9); LYMPH % 17.5 % (8-40); MCH 33.4 pg (25.7-33.7); MCHC 34.5 g/dl (32.0-35.9); MEAN CELL VOLUME 96.8 fl (80-96); MEAN PLT VOLUME 8.4 fl (7.5-11.1); MONO % 11.3 % (3.8-10.2); NEUT % 65.1 % (42.8-82.8); PLATELET COUNT 201 10^3/uL (134-434); RBC 3.35 M/mm3 (4.00-5.60); RDW 16.6 % (11.9-15.9); WHITE BLOOD COUNT 7.6 K/mm3 (4.0-10.0)
[2022-08-26 19:33] LABS: POTASSIUM 3.7 mmol/L (3.5-5.1)
[2022-08-26] MEDS ORDERED: DEXAMETHASONE 4 MG TABLET (FP) PO ONE (19:34)
[2022-08-26 19:35] LABS: CALCIUM 9.3 mg/dL (8.5-10.1)
[2022-08-26 19:36] LABS: ALBUMIN 3.7 g/dl (3.4-5.0); BLOOD UREA NITROGEN 26.6 mg/dL (7-18); MAGNESIUM 1.7 mg/dL (1.8-2.4)
[2022-08-26 19:39] LABS: CREATININE 3.5 mg/dL (0.55-1.3); PHOSPHOROUS 1.6 mg/dL (2.5-4.9)
[2022-08-26 19:40] LABS: BILIRUBIN,TOTAL 0.7 mg/dL (0.2-1); TOT PROT 8.2 g/dl (6.4-8.2)
[2022-08-26 19:44] LABS: N-TERMINAL BNP 812.9 pg/ml (5-125)
[2022-08-26] MEDS ORDERED: DEXAMETHASONE 4 MG TABLET (FP) ONE (20:08)
[2022-08-26] MEDS ORDERED: NAPH,MB-DB/K PH,MBDB POWDER PACKET PO ONE (20:48)
[2022-08-26] MEDS ORDERED: NAPH,MB-DB/K PH,MBDB POWDER PACKET ONE (21:10)
[2022-08-26] MEDS ORDERED: PIPERACILLIN/TAZOB 3.375 GM 3.375 GM in DEXTROSE 5%-WATER - 50 ML IVPB ONE (22:17)
[2022-08-26] MEDS ORDERED: PIPERACILLIN/TAZOB 4.5 GM 4.5 GM in DEXTROSE 5%-WATER 100 ML IVPB ONE (22:22)
[2022-08-26] MEDS ORDERED: PIPERACILLIN/TAZOB 4.5 GM 4.5 GM/100 ML BAG IVPB ONE (22:58)
[2022-08-26] MEDS ORDERED: MAGNESIUM SULF 50% (8.12 MEQ/2 ML-1 GM VIAL) IVPB ONE (23:47)
[2022-08-27] MEDS ORDERED: MAGNESIUM SULFATE IN WATER 2 GM/50 ML IVPB IVPB ONE (00:01)
[2022-08-27 01:38] VITALS: BMI 42.3
[2022-08-27] MEDS ORDERED: ZOLPIDEM TARTRATE 5 MG TABLET PO ONE (05:00)
[2022-08-27] MEDS: HEPARIN NA (PORCINE) 5,000 UNITS/ML 1ML VIAL SQ SCH ×2 (05:35→13:08)
[2022-08-27] MEDS: METOPROLOL TARTRATE 50 MG TABLET (FP) PO SCH ×3 (05:35→21:41)
[2022-08-27] MEDS: INSULIN SLIDING SCALE (NOVOLOG) 1 VIAL SQ SCH ×4 (06:02→22:03)
[2022-08-27] MEDS: ALBUTEROL SO4 2.5/IPRATROPIUM 0.5 INH SOL 3 ML VIAL.NEB. NEB SCH ×4 (07:35→20:12)
[2022-08-27] MEDS: BUDESONIDE 0.5 MG/2 ML INH SUSP VIAL NEB SCH ×2 (07:35→20:13)
[2022-08-27 07:36] LABS: INR 1.26 (0.83-1.09); PROTHROMBIN TIME (PATIENT) 14.6 SEC (9.7-13.0)
[2022-08-27 07:38] LABS: ACTIVATED PTT 39.3 SECONDS (25.2-36.5)
[2022-08-27 07:39] LABS: BASO % 0.3 % (0-2.0); EOS % 0.2 % (0-4.5); HEMATOCRIT 31.3 % (35.4-49); HEMOGLOBIN 10.8 GM/dL (11.7-16.9); LYMPH % 8.5 % (8-40); MCH 33.2 pg (25.7-33.7); MCHC 34.5 g/dl (32.0-35.9); MEAN CELL VOLUME 96.3 fl (80-96); MEAN PLT VOLUME 7.8 fl (7.5-11.1); PLATELET COUNT 201 10^3/uL (134-434); RBC 3.25 M/mm3 (4.00-5.60); RDW 15.9 % (11.9-15.9)
[2022-08-27 07:59] LABS: POTASSIUM 4.1 mmol/L (3.5-5.1)
[2022-08-27 08:11] LABS: ALBUMIN 3.4 g/dl (3.4-5.0); BLOOD UREA NITROGEN 35.1 mg/dL (7-18); CALCIUM 8.9 mg/dL (8.5-10.1); MAGNESIUM 2.3 mg/dL (1.8-2.4)
[2022-08-27 08:14] LABS: CREATININE 4.2 mg/dL (0.55-1.3)
[2022-08-27 08:15] LABS: BILIRUBIN,TOTAL 1.2 mg/dL (0.2-1)
[2022-08-27 08:16] LABS: TOT PROT 7.7 g/dl (6.4-8.2)
[2022-08-27] MEDS: amLODIPine BESYLATE 5 MG TABLET (FP) PO SCH (09:31)
[2022-08-27] MEDS: CINACALCET HCL 30 MG TAB (FP) PO SCH (09:31)
[2022-08-27] MEDS: FUROSEMIDE 40 MG TABLET (FP) PO SCH (09:31)
[2022-08-27] MEDS ORDERED: PIPERACILLIN/TAZOB 2.25 GM 2.25 GM in DEXTROSE 5%-WATER - 50 ML IVPB SCH (10:00)
[2022-08-27] MEDS ORDERED: ACETAMINOPHEN 1000 MG/100 ML BAG IVPB ONE (11:00)
[2022-08-27] MEDS ORDERED: INSULIN (LEVEMIR) 100 UNITS/ML UNITS SQ SCH ×2 (13:45→14:11)
[2022-08-27] MEDS ORDERED: SODIUM CHLORIDE 250 ML IV PRN (16:53)
[2022-08-27] MEDS: PIPERACILLIN/TAZOB 2.25 GM 2.25 GM in DEXTROSE 5%-WATER - 50 ML IVPB SCH (17:07)
[2022-08-27] MEDS ORDERED: DEXTROSE 50%-WATER 25 GM/50 ML DISP.SYRIN IVPUSH PRN (17:23)
[2022-08-27] MEDS: ATORVASTATIN CA 10 MG TABLET (FP) PO SCH (21:41)
[2022-08-27] MEDS: APIXABAN 2.5 MG TABLET PO SCH (21:44)
[2022-08-27] MEDS ORDERED: MELATONIN 5 MG TABLETS PO ONE (21:48)
[2022-08-27] MEDS: ZOLPIDEM TARTRATE 5 MG TABLET PO PRN (22:02)
[2022-08-28] MEDS: PIPERACILLIN/TAZOB 2.25 GM 2.25 GM in DEXTROSE 5%-WATER - 50 ML IVPB SCH ×3 (01:05→17:21)
[2022-08-28] MEDS: INSULIN SLIDING SCALE (NOVOLOG) 1 VIAL SQ SCH ×5 (01:21→21:58)
[2022-08-28] MEDS: METOPROLOL TARTRATE 50 MG TABLET (FP) PO SCH ×3 (06:31→21:57)
[2022-08-28] MEDS ORDERED: DEXTROSE 50%-WATER 25 GM/50 ML DISP.SYRIN IVPUSH PRN (07:27)
[2022-08-28] MEDS: ALBUTEROL SO4 2.5/IPRATROPIUM 0.5 INH SOL 3 ML VIAL.NEB. NEB SCH ×4 (07:40→20:46)
[2022-08-28] MEDS: BUDESONIDE 0.5 MG/2 ML INH SUSP VIAL NEB SCH ×2 (07:40→20:46)
[2022-08-28 09:01] LABS: BASO % 0.2 % (0-2.0); EOS % 0.5 % (0-4.5); HEMATOCRIT 30.8 % (35.4-49); HEMOGLOBIN 10.6 GM/dL (11.7-16.9); LYMPH % 11.3 % (8-40); MCHC 34.5 g/dl (32.0-35.9); MEAN CELL VOLUME 95.8 fl (80-96); MEAN PLT VOLUME 8.1 fl (7.5-11.1); PLATELET COUNT 217 10^3/uL (134-434); RBC 3.21 M/mm3 (4.00-5.60); WHITE BLOOD COUNT 9.9 K/mm3 (4.0-10.0)
[2022-08-28 09:14] LABS: MAGNESIUM 2.3 mg/dL (1.8-2.4); POTASSIUM 3.8 mmol/L (3.5-5.1)
[2022-08-28 09:15] LABS: ALBUMIN 3.4 g/dl (3.4-5.0); CALCIUM 8.7 mg/dL (8.5-10.1)
[2022-08-28 09:16] LABS: BLOOD UREA NITROGEN 47.1 mg/dL (7-18)
[2022-08-28 09:18] LABS: CREATININE 4.7 mg/dL (0.55-1.3); PHOSPHOROUS 3.8 mg/dL (2.5-4.9)
[2022-08-28 09:21] LABS: BILIRUBIN,TOTAL 0.3 mg/dL (0.2-1); TOT PROT 7.3 g/dl (6.4-8.2)
[2022-08-28] MEDS: amLODIPine BESYLATE 5 MG TABLET (FP) PO SCH (12:05)
[2022-08-28] MEDS: CINACALCET HCL 30 MG TAB (FP) PO SCH (12:05)
[2022-08-28] MEDS: FUROSEMIDE 40 MG TABLET (FP) PO SCH (12:06)
[2022-08-28] MEDS: APIXABAN 2.5 MG TABLET PO SCH ×2 (12:06→21:58)
[2022-08-28] MEDS: ASPIRIN COATED 81 MG TABLET.EC PO SCH (12:18)
[2022-08-28] MEDS: ZOLPIDEM TARTRATE 5 MG TABLET PO PRN (21:58)
[2022-08-28] MEDS: ATORVASTATIN CA 10 MG TABLET (FP) PO SCH (21:58)
[2022-08-29] MEDS: PIPERACILLIN/TAZOB 2.25 GM 2.25 GM in DEXTROSE 5%-WATER - 50 ML IVPB SCH ×3 (02:40→17:13)
[2022-08-29] MEDS: METOPROLOL TARTRATE 50 MG TABLET (FP) PO SCH ×3 (06:22→21:28)
[2022-08-29] MEDS: INSULIN SLIDING SCALE (NOVOLOG) 1 VIAL SQ SCH ×4 (06:22→23:55)
[2022-08-29] MEDS: ALBUTEROL SO4 2.5/IPRATROPIUM 0.5 INH SOL 3 ML VIAL.NEB. NEB SCH ×4 (07:45→20:44)
[2022-08-29] MEDS: BUDESONIDE 0.5 MG/2 ML INH SUSP VIAL NEB SCH ×2 (07:45→20:45)
[2022-08-29] MEDS: ASPIRIN COATED 81 MG TABLET.EC PO SCH (09:27)
[2022-08-29] MEDS: amLODIPine BESYLATE 5 MG TABLET (FP) PO SCH (11:30)
[2022-08-29] MEDS: APIXABAN 2.5 MG TABLET PO SCH ×2 (11:30→21:28)
[2022-08-29] MEDS: FUROSEMIDE 40 MG TABLET (FP) PO SCH (11:30)
[2022-08-29] MEDS: CINACALCET HCL 30 MG TAB (FP) PO SCH (11:30)
[2022-08-29 12:40] LABS: BASO % 0.4 % (0-2.0); EOS % 5.2 % (0-4.5); HEMATOCRIT 39.1 % (35.4-49); HEMOGLOBIN 13.2 GM/dL (11.7-16.9); LYMPH % 23.9 % (8-40); MCHC 33.9 g/dl (32.0-35.9); MEAN CELL VOLUME 97.3 fl (80-96); MEAN PLT VOLUME 7.7 fl (7.5-11.1); MONO % 9.1 % (3.8-10.2); NEUT % 61.4 % (42.8-82.8); PLATELET COUNT 243 10^3/uL (134-434); RBC 4.02 M/mm3 (4.00-5.60); RDW 16.6 % (11.9-15.9); WHITE BLOOD COUNT 9.8 K/mm3 (4.0-10.0)
[2022-08-29 12:52] LABS: POTASSIUM 4.4 mmol/L (3.5-5.1)
[2022-08-29 12:55] LABS: ALBUMIN 4.1 g/dl (3.4-5.0); BLOOD UREA NITROGEN 40.3 mg/dL (7-18); CALCIUM 8.8 mg/dL (8.5-10.1); MAGNESIUM 2.2 mg/dL (1.8-2.4)
[2022-08-29 12:58] LABS: CREATININE 5.8 mg/dL (0.55-1.3)
[2022-08-29 12:59] LABS: PHOSPHOROUS 3.6 mg/dL (2.5-4.9)
[2022-08-29 13:00] LABS: BILIRUBIN,TOTAL 0.6 mg/dL (0.2-1); TOT PROT 9.1 g/dl (6.4-8.2)
[2022-08-29] MEDS: ACETAMINOPHEN 325 MG TABLET (FP) PO PRN (17:13)
[2022-08-29] MEDS: ATORVASTATIN CA 10 MG TABLET (FP) PO SCH (21:28)
[2022-08-30] MEDS: ZOLPIDEM TARTRATE 5 MG TABLET PO PRN (00:27)
[2022-08-30] MEDS: PIPERACILLIN/TAZOB 2.25 GM 2.25 GM in DEXTROSE 5%-WATER - 50 ML IVPB SCH ×3 (01:10→19:03)
[2022-08-30] MEDS: METOPROLOL TARTRATE 50 MG TABLET (FP) PO SCH ×3 (06:32→22:34)
[2022-08-30] MEDS: INSULIN SLIDING SCALE (NOVOLOG) 1 VIAL SQ SCH ×4 (06:33→22:37)
[2022-08-30] MEDS: BUDESONIDE 0.5 MG/2 ML INH SUSP VIAL NEB SCH ×2 (07:15→19:57)
[2022-08-30] MEDS: ALBUTEROL SO4 2.5/IPRATROPIUM 0.5 INH SOL 3 ML VIAL.NEB. NEB SCH ×4 (07:15→19:57)
[2022-08-30] MEDS: ASPIRIN COATED 81 MG TABLET.EC PO SCH (08:33)
[2022-08-30] MEDS: CINACALCET HCL 30 MG TAB (FP) PO SCH (09:58)
[2022-08-30] MEDS: APIXABAN 2.5 MG TABLET PO SCH (09:58)
[2022-08-30] MEDS: FUROSEMIDE 40 MG TABLET (FP) PO SCH (09:58)
[2022-08-30] MEDS: amLODIPine BESYLATE 5 MG TABLET (FP) PO SCH (09:58)
[2022-08-30 11:45] LABS: BASO % 0.3 % (0-2.0); EOS % 6.2 % (0-4.5); HEMATOCRIT 33.6 % (35.4-49); HEMOGLOBIN 11.8 GM/dL (11.7-16.9); LYMPH % 23.4 % (8-40); MCH 33.5 pg (25.7-33.7); MCHC 35.2 g/dl (32.0-35.9); MEAN CELL VOLUME 95.2 fl (80-96); MONO % 11.2 % (3.8-10.2); NEUT % 58.9 % (42.8-82.8); PLATELET COUNT 201 10^3/uL (134-434); RBC 3.53 M/mm3 (4.00-5.60); WHITE BLOOD COUNT 8.2 K/mm3 (4.0-10.0)
[2022-08-30 11:50] LABS: INR 1.38 (0.83-1.09); PROTHROMBIN TIME (PATIENT) 15.9 SEC (9.7-13.0)
[2022-08-30 11:52] LABS: ACTIVATED PTT 35.1 SECONDS (25.2-36.5)
[2022-08-30 11:59] LABS: POTASSIUM 3.2 mmol/L (3.5-5.1)
[2022-08-30] MEDS ORDERED: BISACODYL 5 MG TABLET.DR (FP) PO ONE (12:00)
[2022-08-30 12:30] LABS: ALBUMIN 3.4 g/dl (3.4-5.0); BLOOD UREA NITROGEN 48.6 mg/dL (7-18); CALCIUM 7.9 mg/dL (8.5-10.1)
[2022-08-30 12:32] LABS: CREATININE 6.4 mg/dL (0.55-1.3)
[2022-08-30 12:33] LABS: PHOSPHOROUS 4.1 mg/dL (2.5-4.9)
[2022-08-30 12:34] LABS: BILIRUBIN,TOTAL 0.5 mg/dL (0.2-1); TOT PROT 7.5 g/dl (6.4-8.2)
[2022-08-30] MEDS ORDERED: SODIUM CHLORIDE 250 ML IV PRN (13:37)
[2022-08-30] MEDS: metroNIDAZOLE 500 MG TABLET PO SCH ×2 (14:24→16:02)
[2022-08-30] MEDS: NEOMYCIN SO4 500 MG TABLET PO SCH ×2 (14:24→16:03)
[2022-08-30] MEDS: ATORVASTATIN CA 10 MG TABLET (FP) PO SCH (22:34)
[2022-08-31] MEDS: PIPERACILLIN/TAZOB 2.25 GM 2.25 GM in DEXTROSE 5%-WATER - 50 ML IVPB SCH ×3 (02:17→18:09)
[2022-08-31] MEDS: METOPROLOL TARTRATE 50 MG TABLET (FP) PO SCH ×3 (06:34→21:20)
[2022-08-31] MEDS: INSULIN SLIDING SCALE (NOVOLOG) 1 VIAL SQ SCH ×3 (06:36→16:57)
[2022-08-31] MEDS: BUDESONIDE 0.5 MG/2 ML INH SUSP VIAL NEB SCH ×2 (07:40→19:20)
[2022-08-31] MEDS: ALBUTEROL SO4 2.5/IPRATROPIUM 0.5 INH SOL 3 ML VIAL.NEB. NEB SCH ×3 (07:40→15:10)
[2022-08-31] MEDS: amLODIPine BESYLATE 5 MG TABLET (FP) PO SCH (09:47)
[2022-08-31] MEDS: CINACALCET HCL 30 MG TAB (FP) PO SCH (09:47)
[2022-08-31] MEDS: FUROSEMIDE 40 MG TABLET (FP) PO SCH (09:47)
[2022-08-31 10:44] LABS: BASO % 0.4 % (0-2.0); EOS % 5.7 % (0-4.5); HEMATOCRIT 31.9 % (35.4-49); HEMOGLOBIN 11.1 GM/dL (11.7-16.9); LYMPH % 21.8 % (8-40); MCH 33.2 pg (25.7-33.7); MCHC 34.7 g/dl (32.0-35.9); MEAN CELL VOLUME 95.9 fl (80-96); MEAN PLT VOLUME 7.8 fl (7.5-11.1); MONO % 10.9 % (3.8-10.2); NEUT % 61.2 % (42.8-82.8); PLATELET COUNT 194 10^3/uL (134-434); RBC 3.33 M/mm3 (4.00-5.60); RDW 15.7 % (11.9-15.9); WHITE BLOOD COUNT 8.7 K/mm3 (4.0-10.0)
[2022-08-31 11:14] LABS: ALBUMIN 3.3 g/dl (3.4-5.0); BLOOD UREA NITROGEN 26.4 mg/dL (7-18); CALCIUM 7.9 mg/dL (8.5-10.1)
[2022-08-31 11:17] LABS: CREATININE 4.7 mg/dL (0.55-1.3)
[2022-08-31 11:18] LABS: BILIRUBIN,TOTAL 0.5 mg/dL (0.2-1)
[2022-08-31 11:21] LABS: TOT PROT 7.2 g/dl (6.4-8.2)
[2022-08-31] MEDS: KCL 10 MEQ IVPB 10 MEQ/100 ML INFUS.BAG IVPB SCH (14:50)
[2022-08-31] MEDS ORDERED: POTASSIUM CHLORIDE ORAL LIQUID 20 MEQ/15 ML PO ONE (14:52)
[2022-08-31] MEDS ORDERED: INSULIN SLIDING SCALE (NOVOLOG) 1 VIAL SQ SCH (16:30)
[2022-08-31] MEDS: ATORVASTATIN CA 10 MG TABLET (FP) PO SCH (21:20)
[2022-09-01] MEDS: PIPERACILLIN/TAZOB 2.25 GM 2.25 GM in DEXTROSE 5%-WATER - 50 ML IVPB SCH ×3 (02:26→18:50)
[2022-09-01] MEDS ORDERED: MELATONIN 5 MG TABLETS PO ONE (02:47)
[2022-09-01] MEDS: KCL 10 MEQ IVPB 10 MEQ/100 ML INFUS.BAG IVPB SCH ×2 (06:12→06:13)
[2022-09-01] MEDS: METOPROLOL TARTRATE 50 MG TABLET (FP) PO SCH ×3 (06:18→21:44)
[2022-09-01] MEDS: INSULIN SLIDING SCALE (NOVOLOG) 1 VIAL SQ SCH ×3 (06:19→18:49)
[2022-09-01] MEDS: BUDESONIDE 0.5 MG/2 ML INH SUSP VIAL NEB SCH (07:08)
[2022-09-01 10:03] LABS: HEMATOCRIT 33.2 % (35.4-49); HEMOGLOBIN 11.6 GM/dL (11.7-16.9); MCH 33.2 pg (25.7-33.7); MCHC 34.8 g/dl (32.0-35.9); MEAN CELL VOLUME 95.3 fl (80-96); PLATELET COUNT 226 10^3/uL (134-434); RBC 3.49 M/mm3 (4.00-5.60); RDW 15.5 % (11.9-15.9); WHITE BLOOD COUNT 9.6 K/mm3 (4.0-10.0)
[2022-09-01 10:24] LABS: POTASSIUM 3.5 mmol/L (3.5-5.1)
[2022-09-01 10:30] LABS: CALCIUM 7.6 mg/dL (8.5-10.1)
[2022-09-01 10:31] LABS: BLOOD UREA NITROGEN 35.2 mg/dL (7-18); MAGNESIUM 1.8 mg/dL (1.8-2.4)
[2022-09-01 10:32] LABS: ALBUMIN 3.6 g/dl (3.4-5.0)
[2022-09-01 10:34] LABS: CREATININE 5.6 mg/dL (0.55-1.3); PHOSPHOROUS 3.8 mg/dL (2.5-4.9)
[2022-09-01 10:36] LABS: TOT PROT 7.9 g/dl (6.4-8.2)
[2022-09-01 10:39] LABS: BILIRUBIN,TOTAL 0.7 mg/dL (0.2-1)
[2022-09-01] MEDS: amLODIPine BESYLATE 5 MG TABLET (FP) PO SCH (11:21)
[2022-09-01] MEDS: CINACALCET HCL 30 MG TAB (FP) PO SCH (11:21)
[2022-09-01] MEDS: RUXOLITINIB PHOSPHATE TP SCH (11:21)
[2022-09-01] MEDS: PATIENT'S OWN MEDICATION (NON-FORMULARY) (Ruxolitinib Phosphate [Opzelura] 60 GM Cream..G. TP SCH ×2 (13:20→13:21)
[2022-09-01] MEDS: ACETAMINOPHEN 325 MG TABLET (FP) PO PRN (15:50)
[2022-09-01] MEDS: ATORVASTATIN CA 10 MG TABLET (FP) PO SCH (21:44)
[2022-09-01] MEDS: MELATONIN 5 MG TABLETS PO PRN (21:58)
[2022-09-02] MEDS: PIPERACILLIN/TAZOB 2.25 GM 2.25 GM in DEXTROSE 5%-WATER - 50 ML IVPB SCH ×3 (02:12→17:31)
[2022-09-02] MEDS: INSULIN SLIDING SCALE (NOVOLOG) 1 VIAL SQ SCH ×3 (06:14→17:31)
[2022-09-02] MEDS: METOPROLOL TARTRATE 50 MG TABLET (FP) PO SCH ×3 (06:14→21:27)
[2022-09-02] MEDS ORDERED: SODIUM CHLORIDE 250 ML IV PRN (09:00)
[2022-09-02 09:29] LABS: HEMATOCRIT 31.3 % (35.4-49); MCH 33.3 pg (25.7-33.7); MCHC 35.1 g/dl (32.0-35.9); MEAN CELL VOLUME 94.8 fl (80-96); MEAN PLT VOLUME 8.3 fl (7.5-11.1); PLATELET COUNT 217 10^3/uL (134-434); RDW 15.4 % (11.9-15.9)
[2022-09-02 09:43] LABS: POTASSIUM 3.3 mmol/L (3.5-5.1)
[2022-09-02 09:56] LABS: ALBUMIN 3.5 g/dl (3.4-5.0); CALCIUM 7.1 mg/dL (8.5-10.1)
[2022-09-02 09:57] LABS: BLOOD UREA NITROGEN 37.4 mg/dL (7-18); MAGNESIUM 1.8 mg/dL (1.8-2.4); PHOSPHOROUS 4.1 mg/dL (2.5-4.9)
[2022-09-02 09:58] LABS: CREATININE 5.7 mg/dL (0.55-1.3)
[2022-09-02 09:59] LABS: BILIRUBIN,TOTAL 0.8 mg/dL (0.2-1); TOT PROT 7.2 g/dl (6.4-8.2)
[2022-09-02] MEDS: CINACALCET HCL 30 MG TAB (FP) PO SCH (12:07)
[2022-09-02] MEDS: amLODIPine BESYLATE 5 MG TABLET (FP) PO SCH (12:07)
[2022-09-02] MEDS: RUXOLITINIB PHOSPHATE TP SCH (12:09)
[2022-09-02] MEDS: ATORVASTATIN CA 10 MG TABLET (FP) PO SCH (21:27)
[2022-09-02] MEDS: MELATONIN 5 MG TABLETS PO PRN (21:27)
[2022-09-03] MEDS: PIPERACILLIN/TAZOB 2.25 GM 2.25 GM in DEXTROSE 5%-WATER - 50 ML IVPB SCH ×2 (01:56→10:24)
[2022-09-03] MEDS: INSULIN SLIDING SCALE (NOVOLOG) 1 VIAL SQ SCH ×3 (06:07→16:39)
[2022-09-03] MEDS: METOPROLOL TARTRATE 50 MG TABLET (FP) PO SCH ×3 (06:07→21:05)
[2022-09-03] MEDS ORDERED: POTASSIUM CHLORIDE ORAL LIQUID 20 MEQ/15 ML PO ONE (08:29)
[2022-09-03] MEDS ORDERED: KCL 10 MEQ IVPB 10 MEQ/100 ML INFUS.BAG IVPB SCH (08:30)
[2022-09-03 10:06] LABS: POTASSIUM 3.1 mmol/L (3.5-5.1)
[2022-09-03 10:11] LABS: ALBUMIN 3.4 g/dl (3.4-5.0); BLOOD UREA NITROGEN 23.8 mg/dL (7-18); CALCIUM 7.4 mg/dL (8.5-10.1)
[2022-09-03 10:12] LABS: MAGNESIUM 1.6 mg/dL (1.8-2.4)
[2022-09-03 10:14] LABS: CREATININE 5.5 mg/dL (0.55-1.3); PHOSPHOROUS 3.6 mg/dL (2.5-4.9)
[2022-09-03 10:15] LABS: TOT PROT 7.3 g/dl (6.4-8.2)
[2022-09-03 10:16] LABS: BILIRUBIN,TOTAL 0.7 mg/dL (0.2-1)
[2022-09-03] MEDS: amLODIPine BESYLATE 5 MG TABLET (FP) PO SCH (10:24)
[2022-09-03] MEDS: CINACALCET HCL 30 MG TAB (FP) PO SCH (10:24)
[2022-09-03] MEDS: RUXOLITINIB PHOSPHATE TP SCH (10:29)
[2022-09-03 10:55] LABS: HEMATOCRIT 32.6 % (35.4-49); HEMOGLOBIN 11.5 GM/dL (11.7-16.9); MCH 33.6 pg (25.7-33.7); MCHC 35.2 g/dl (32.0-35.9); MEAN CELL VOLUME 95.3 fl (80-96); MEAN PLT VOLUME 7.6 fl (7.5-11.1); PLATELET COUNT 213 10^3/uL (134-434); RBC 3.42 M/mm3 (4.00-5.60); RDW 15.2 % (11.9-15.9); WHITE BLOOD COUNT 7.7 K/mm3 (4.0-10.0)
[2022-09-03] MEDS ORDERED: MAGNESIUM SULF 50% (8.12 MEQ/2 ML-1 GM VIAL) IVPB ONE (11:40)
[2022-09-03] MEDS ORDERED: SIMETHICONE 80 MG TAB.CHEW (FP) PO PRN (14:55)
[2022-09-03] MEDS: MELATONIN 5 MG TABLETS PO PRN (21:05)
[2022-09-03] MEDS: ATORVASTATIN CA 10 MG TABLET (FP) PO SCH (21:05)
[2022-09-04] MEDS: METOPROLOL TARTRATE 50 MG TABLET (FP) PO SCH ×3 (05:43→21:09)
[2022-09-04] MEDS: INSULIN SLIDING SCALE (NOVOLOG) 1 VIAL SQ SCH ×3 (06:01→17:16)
[2022-09-04] MEDS ORDERED: SODIUM CHLORIDE 250 ML IV PRN (09:00)
[2022-09-04 10:21] LABS: HEMATOCRIT 30.9 % (35.4-49); HEMOGLOBIN 10.8 GM/dL (11.7-16.9); MCH 33.3 pg (25.7-33.7); MCHC 35.1 g/dl (32.0-35.9); MEAN CELL VOLUME 94.8 fl (80-96); MEAN PLT VOLUME 7.6 fl (7.5-11.1); PLATELET COUNT 187 10^3/uL (134-434); RBC 3.26 M/mm3 (4.00-5.60); RDW 15.4 % (11.9-15.9); WHITE BLOOD COUNT 7.1 K/mm3 (4.0-10.0)
[2022-09-04 10:47] LABS: POTASSIUM 3.2 mmol/L (3.5-5.1)
[2022-09-04 10:49] LABS: ALBUMIN 3.3 g/dl (3.4-5.0); CALCIUM 7.3 mg/dL (8.5-10.1); MAGNESIUM 2.1 mg/dL (1.8-2.4)
[2022-09-04 10:50] LABS: BLOOD UREA NITROGEN 32.7 mg/dL (7-18)
[2022-09-04 10:52] LABS: PHOSPHOROUS 4.2 mg/dL (2.5-4.9)
[2022-09-04 10:53] LABS: CREATININE 6.5 mg/dL (0.55-1.3)
[2022-09-04 10:54] LABS: BILIRUBIN,TOTAL 0.5 mg/dL (0.2-1)
[2022-09-04] MEDS ORDERED: HYDROCORTISONE 0.5% TOPICAL CREAM 30 GM TUBE TP PRN (11:06)
[2022-09-04] MEDS: amLODIPine BESYLATE 5 MG TABLET (FP) PO SCH (12:49)
[2022-09-04] MEDS: CINACALCET HCL 30 MG TAB (FP) PO SCH (12:50)
[2022-09-04] MEDS: RUXOLITINIB PHOSPHATE TP SCH (12:51)
[2022-09-04] MEDS ORDERED: POTASSIUM CHLORIDE ORAL LIQUID 20 MEQ/15 ML PO ONE (13:22)
[2022-09-04] MEDS: VANCOMYCIN 250 MG/5 ML ORAL SOLUTION PO SCH ×2 (17:32→23:43)
[2022-09-04] MEDS: ATORVASTATIN CA 10 MG TABLET (FP) PO SCH (21:09)
[2022-09-04] MEDS: MELATONIN 5 MG TABLETS PO PRN (21:09)
[2022-09-05] MEDS: VANCOMYCIN 250 MG/5 ML ORAL SOLUTION PO SCH ×4 (06:43→23:32)
[2022-09-05] MEDS: METOPROLOL TARTRATE 50 MG TABLET (FP) PO SCH ×3 (06:43→21:10)
[2022-09-05] MEDS: INSULIN SLIDING SCALE (NOVOLOG) 1 VIAL SQ SCH ×3 (06:50→17:31)
[2022-09-05] MEDS: CINACALCET HCL 30 MG TAB (FP) PO SCH (10:01)
[2022-09-05] MEDS: amLODIPine BESYLATE 5 MG TABLET (FP) PO SCH (10:01)
[2022-09-05] MEDS: RUXOLITINIB PHOSPHATE TP SCH (10:03)
[2022-09-05 11:23] LABS: HEMATOCRIT 33.3 % (35.4-49); HEMOGLOBIN 11.3 GM/dL (11.7-16.9); MCH 32.5 pg (25.7-33.7); MEAN CELL VOLUME 95.6 fl (80-96); MEAN PLT VOLUME 7.5 fl (7.5-11.1); PLATELET COUNT 186 10^3/uL (134-434); RBC 3.48 M/mm3 (4.00-5.60); RDW 15.2 % (11.9-15.9)
[2022-09-05 11:43] LABS: POTASSIUM 3.6 mmol/L (3.5-5.1)
[2022-09-05 12:19] LABS: ALBUMIN 3.4 g/dl (3.4-5.0); BILIRUBIN,TOTAL 0.4 mg/dL (0.2-1); BLOOD UREA NITROGEN 19.6 mg/dL (7-18); CALCIUM 7.9 mg/dL (8.5-10.1); CREATININE 5.7 mg/dL (0.55-1.3); MAGNESIUM 1.8 mg/dL (1.8-2.4); PHOSPHOROUS 3.1 mg/dL (2.5-4.9); TOT PROT 7.1 g/dl (6.4-8.2)
[2022-09-05] MEDS ORDERED: SODIUM CHLORIDE 250 ML IV PRN (13:40)
[2022-09-05] MEDS: CEFTRIAXONE 1 GM in DEXTROSE 5%-WATER - 50 ML IVPB SCH (19:12)
[2022-09-05] MEDS: ATORVASTATIN CA 10 MG TABLET (FP) PO SCH (21:10)
[2022-09-05] MEDS: MELATONIN 5 MG TABLETS PO PRN (21:12)
[2022-09-06] MEDS: VANCOMYCIN 250 MG/5 ML ORAL SOLUTION PO SCH ×4 (06:23→23:45)
[2022-09-06] MEDS: INSULIN SLIDING SCALE (NOVOLOG) 1 VIAL SQ SCH ×3 (06:24→17:12)
[2022-09-06 09:22] LABS: BASO % 0.7 % (0-2.0); EOS % 4.7 % (0-4.5); HEMATOCRIT 30.5 % (35.4-49); HEMOGLOBIN 10.5 GM/dL (11.7-16.9); LYMPH % 23.5 % (8-40); MCH 32.8 pg (25.7-33.7); MCHC 34.5 g/dl (32.0-35.9); MEAN CELL VOLUME 95.1 fl (80-96); MEAN PLT VOLUME 7.5 fl (7.5-11.1); MONO % 12.5 % (3.8-10.2); NEUT % 58.6 % (42.8-82.8); PLATELET COUNT 175 10^3/uL (134-434); RBC 3.21 M/mm3 (4.00-5.60); WHITE BLOOD COUNT 7.1 K/mm3 (4.0-10.0)
[2022-09-06] MEDS ORDERED: POLYETHYLENE GLYCOL 3350 255 GM BTL PO ONE (10:00)
[2022-09-06 11:24] LABS: POTASSIUM 3.1 mmol/L (3.5-5.1)
[2022-09-06 11:50] LABS: ALBUMIN 3.2 g/dl (3.4-5.0); BLOOD UREA NITROGEN 23.8 mg/dL (7-18); CALCIUM 7.2 mg/dL (8.5-10.1); MAGNESIUM 1.8 mg/dL (1.8-2.4)
[2022-09-06 11:54] LABS: CREATININE 6.4 mg/dL (0.55-1.3); PHOSPHOROUS 3.6 mg/dL (2.5-4.9)
[2022-09-06 11:56] LABS: BILIRUBIN,TOTAL 0.5 mg/dL (0.2-1); TOT PROT 6.8 g/dl (6.4-8.2)
[2022-09-06] MEDS ORDERED: BISACODYL 5 MG TABLET.DR (FP) PO ONE (12:00)
[2022-09-06] MEDS: CEFTRIAXONE 1 GM in DEXTROSE 5%-WATER - 50 ML IVPB SCH (12:33)
[2022-09-06] MEDS: amLODIPine BESYLATE 5 MG TABLET (FP) PO SCH (12:33)
[2022-09-06] MEDS: CINACALCET HCL 30 MG TAB (FP) PO SCH (12:33)
[2022-09-06] MEDS: ENOXAPARIN NA (PORCINE) 40 MG/0.4 ML DISP.SYRIN SQ ONE ×2 (12:34→17:02)
[2022-09-06] MEDS: METOPROLOL TARTRATE 50 MG TABLET (FP) PO SCH ×3 (12:38→22:26)
[2022-09-06] MEDS: RUXOLITINIB PHOSPHATE TP SCH (12:38)
[2022-09-06 13:29] LABS: INR 1.1 (0.83-1.09); PROTHROMBIN TIME (PATIENT) 12.8 SEC (9.7-13.0)
[2022-09-06 13:32] LABS: ACTIVATED PTT 35.3 SECONDS (25.2-36.5)
[2022-09-06] MEDS: NEOMYCIN SO4 500 MG TABLET PO SCH ×3 (13:40→22:42)
[2022-09-06] MEDS: metroNIDAZOLE 500 MG TABLET PO SCH ×2 (13:40→14:40)
[2022-09-06] MEDS: KCL 10 MEQ IVPB 10 MEQ/100 ML INFUS.BAG IVPB SCH ×2 (14:39→14:55)
[2022-09-06] MEDS ORDERED: POTASSIUM CHLORIDE ORAL LIQUID 20 MEQ/15 ML PO ONE (17:26)
[2022-09-06] MEDS ORDERED: metroNIDAZOLE 250 MG TABLET PO SCH (21:44)
[2022-09-06] MEDS: MELATONIN 5 MG TABLETS PO PRN (22:26)
[2022-09-06] MEDS: ATORVASTATIN CA 10 MG TABLET (FP) PO SCH (22:26)
[2022-09-07] MEDS: METOPROLOL TARTRATE 50 MG TABLET (FP) PO SCH ×2 (05:32→23:09)
[2022-09-07] MEDS: VANCOMYCIN 250 MG/5 ML ORAL SOLUTION PO SCH (05:33)
[2022-09-07] MEDS: INSULIN SLIDING SCALE (NOVOLOG) 1 VIAL SQ SCH ×2 (06:01→11:49)
[2022-09-07] MEDS ORDERED: KETAMINE HCL 500 MG/10 ML VIAL ONE (07:03)
[2022-09-07] MEDS ORDERED: SUCCINYLCHOLINE CHLORIDE 200 MG/10 ML SYRINGE ONE (07:04)
[2022-09-07] MEDS ORDERED: ROCURONIUM BROMIDE 50 MG/5 ML SYRINGE ONE (07:04)
[2022-09-07] MEDS ORDERED: PROPOFOL 40 ML ONE (07:04)
[2022-09-07] MEDS: RUXOLITINIB PHOSPHATE TP SCH (09:08)
[2022-09-07] MEDS: CEFTRIAXONE 1 GM in DEXTROSE 5%-WATER - 50 ML IVPB SCH (09:08)
[2022-09-07] MEDS: CINACALCET HCL 30 MG TAB (FP) PO SCH (09:08)
[2022-09-07] MEDS: amLODIPine BESYLATE 5 MG TABLET (FP) PO SCH (09:08)
[2022-09-07] MEDS ORDERED: INDOCYANINE GREEN 25 MG/10 ML VIAL IVPUSH ONE ×3 (11:16→13:52)
[2022-09-07] MEDS ORDERED: BUPIVACAINE HCL/PF 0.25% (2.5MG/ML) 10 ML VIAL ONE (11:16)
[2022-09-07] MEDS ORDERED: HEPARIN NA (PORCINE) 5,000 UNITS/ML 1ML VIAL ONE ×2 (11:17→13:51)
[2022-09-07] MEDS ORDERED: GABAPENTIN 400 MG CAPSULE PO ONE ×2 (12:32→20:03)
[2022-09-07] MEDS ORDERED: HEPARIN NA (PORCINE) 5,000 UNITS/ML 1ML VIAL SQ ONE (12:41)
[2022-09-07] MEDS ORDERED: SCOPOLAMINE HYDROBROMIDE 1 PATCH PATCH.TD72 TD SCH (12:45)
[2022-09-07] MEDS ORDERED: ACETAMINOPHEN INJECTION 100 ML IVPB ONE (13:18)
[2022-09-07] MEDS ORDERED: BUPIVACAINE HCL/PF 0.25% (2.5MG/ML) 10 ML VIAL IJ ONE (14:20)
[2022-09-07] MEDS ORDERED: SODIUM CHLORIDE 1,000 ML IV SCH ×2 (19:30→20:03)
[2022-09-07] MEDS ORDERED: MELATONIN 5 MG TABLETS PO PRN (20:03)
[2022-09-07] MEDS ORDERED: HYDROCORTISONE 0.5% TOPICAL CREAM 30 GM TUBE TP PRN (20:03)
[2022-09-07] MEDS ORDERED: DEXTROSE 50%-WATER 25 GM/50 ML DISP.SYRIN IVPUSH PRN (20:03)
[2022-09-07] MEDS ORDERED: MUPIROCIN 2% TOPICAL OINTMENT FOR DECOLONIZATION NS SCH (22:00)
[2022-09-07] MEDS ORDERED: ATORVASTATIN CA 10 MG TABLET (FP) PO SCH (22:00)
[2022-09-07] MEDS ORDERED: CHLORHEXIDINE GLUCONATE 4% CLEANSER FOR DECOLONIZATION TP SCH ×2 (22:00)
[2022-09-07] MEDS: PIPERACILLIN/TAZOB 3.375 GM 3.375 GM in DEXTROSE 5%-WATER - 50 ML IVPB SCH (23:11)
[2022-09-07] MEDS: MUPIROCIN 2% TOPICAL OINTMENT FOR DECOLONIZATION NS SCH (23:13)
[2022-09-08] MEDS: ACETAMINOPHEN 1000 MG/100 ML BAG IVPB SCH (01:16)
[2022-09-08] MEDS: PIPERACILLIN/TAZOB 3.375 GM 3.375 GM in DEXTROSE 5%-WATER - 50 ML IVPB SCH ×2 (01:17→12:24)
[2022-09-08] MEDS: VANCOMYCIN 250 MG/5 ML ORAL SOLUTION PO SCH ×4 (02:09→18:31)
[2022-09-08] MEDS ORDERED: HEPARIN NA (PORCINE) 5,000 UNITS/ML 1ML VIAL SQ SCH ×3 (06:00→14:00)
[2022-09-08] MEDS: METOPROLOL TARTRATE 50 MG TABLET (FP) PO SCH ×3 (06:02→22:05)
[2022-09-08] MEDS: morphine SULFATE 4 MG/ML VIAL IVPUSH PRN ×2 (06:04→15:23)
[2022-09-08] MEDS: INSULIN SLIDING SCALE (NOVOLOG) 1 VIAL SQ SCH ×3 (06:24→17:19)
[2022-09-08 07:15] LABS: HEMATOCRIT 33.4 % (35.4-49); HEMOGLOBIN 11.5 GM/dL (11.7-16.9); MCH 33.3 pg (25.7-33.7); MCHC 34.5 g/dl (32.0-35.9); MEAN CELL VOLUME 96.7 fl (80-96); PLATELET COUNT 152 10^3/uL (134-434); RBC 3.46 M/mm3 (4.00-5.60); RDW 15.6 % (11.9-15.9); WHITE BLOOD COUNT 15.5 K/mm3 (4.0-10.0)
[2022-09-08 07:41] LABS: CHLORIDE 101 mmol/L (98-107); SODIUM 138 mmol/L (136-145)
[2022-09-08 07:47] LABS: ANION GAP 10 MMOL/L (8-16); CALCIUM 7.4 mg/dL (8.5-10.1); CO2 27 mmol/L (21-32); MAGNESIUM 1.5 mg/dL (1.8-2.4)
[2022-09-08 07:48] LABS: ALBUMIN 3.4 g/dl (3.4-5.0); BLOOD UREA NITROGEN 26.4 mg/dL (7-18); GLUCOSE,RANDOM 175 mg/dL (74-106)
[2022-09-08 07:50] LABS: SGPT/ALT 40 U/L (13-61)
[2022-09-08 07:51] LABS: SGOT/AST 34 U/L (15-37)
[2022-09-08 07:52] LABS: ALK PHOS 70 U/L (45-117); BILIRUBIN,TOTAL 0.7 mg/dL (0.2-1); TOT PROT 7.2 g/dl (6.4-8.2)
[2022-09-08] MEDS ORDERED: MAGNESIUM SULF 50% (8.12 MEQ/2 ML-1 GM VIAL) IVPB ONE (08:09)
[2022-09-08] MEDS ORDERED: CINACALCET HCL 30 MG TAB (FP) PO SCH (10:00)
[2022-09-08] MEDS ORDERED: RUXOLITINIB PHOSPHATE TP SCH (10:00)
[2022-09-08] MEDS ORDERED: amLODIPine BESYLATE 5 MG TABLET (FP) PO SCH (10:00)
[2022-09-08] MEDS ORDERED: oxyCODONE HCL 5 MG TABLET PO PRN ×4 (12:01→17:20)
[2022-09-08] MEDS ORDERED: SODIUM CHLORIDE 250 ML IV PRN ×2 (12:19→17:20)
[2022-09-08] MEDS: MUPIROCIN 2% TOPICAL OINTMENT FOR DECOLONIZATION NS SCH (12:25)
[2022-09-08] MEDS ORDERED: morphine SULFATE 4 MG/ML VIAL IVPUSH PRN (17:20)
[2022-09-08] MEDS ORDERED: HYDROCORTISONE 0.5% TOPICAL CREAM 30 GM TUBE TP PRN (17:20)
[2022-09-08] MEDS ORDERED: DEXTROSE 50%-WATER 25 GM/50 ML DISP.SYRIN IVPUSH PRN (17:20)
[2022-09-08] MEDS ORDERED: PIPERACILLIN/TAZOB 2.25 GM 2.25 GM in DEXTROSE 5%-WATER - 50 ML IVPB SCH (18:00)
[2022-09-08] MEDS: PIPERACILLIN/TAZOB 2.25 GM 2.25 GM in DEXTROSE 5%-WATER - 50 ML IVPB SCH (18:05)
[2022-09-08] MEDS ORDERED: ACETAMINOPHEN 500 MG TABLET (FP) PO SCH (20:00)
[2022-09-08] MEDS: ACETAMINOPHEN 500 MG TABLET (FP) PO SCH (20:57)
[2022-09-08] MEDS: MELATONIN 5 MG TABLETS PO PRN (22:04)
[2022-09-08] MEDS: ATORVASTATIN CA 10 MG TABLET (FP) PO SCH (22:05)
[2022-09-08] MEDS: HEPARIN NA (PORCINE) 5,000 UNITS/ML 1ML VIAL SQ SCH (22:06)
[2022-09-09] MEDS: VANCOMYCIN 250 MG/5 ML ORAL SOLUTION PO SCH ×4 (00:45→17:05)
[2022-09-09] MEDS: PIPERACILLIN/TAZOB 2.25 GM 2.25 GM in DEXTROSE 5%-WATER - 50 ML IVPB SCH ×2 (01:48→12:57)
[2022-09-09] MEDS: ACETAMINOPHEN 500 MG TABLET (FP) PO SCH ×3 (04:15→20:55)
[2022-09-09] MEDS ORDERED: INSULIN (NOVOLOG) ASPART 100 UNITS/ML 10ML VIAL ONE (06:10)
[2022-09-09] MEDS: HEPARIN NA (PORCINE) 5,000 UNITS/ML 1ML VIAL SQ SCH ×3 (06:33→21:50)
[2022-09-09] MEDS: METOPROLOL TARTRATE 50 MG TABLET (FP) PO SCH ×3 (06:33→21:49)
[2022-09-09] MEDS: INSULIN SLIDING SCALE (NOVOLOG) 1 VIAL SQ SCH ×3 (06:34→16:25)
[2022-09-09 07:40] LABS: BASO % 0.3 % (0-2.0); EOS % 5.6 % (0-4.5); HEMATOCRIT 30.4 % (35.4-49); HEMOGLOBIN 10.6 GM/dL (11.7-16.9); LYMPH % 6.6 % (8-40); MCH 33.8 pg (25.7-33.7); MCHC 34.9 g/dl (32.0-35.9); MEAN CELL VOLUME 96.7 fl (80-96); MEAN PLT VOLUME 8.5 fl (7.5-11.1); MONO % 8.9 % (3.8-10.2); NEUT % 78.6 % (42.8-82.8); PLATELET COUNT 150 10^3/uL (134-434); RBC 3.15 M/mm3 (4.00-5.60); RDW 15.4 % (11.9-15.9); WHITE BLOOD COUNT 10.1 K/mm3 (4.0-10.0)
[2022-09-09 07:56] LABS: CHLORIDE 97 mmol/L (98-107); POTASSIUM 4.3 mmol/L (3.5-5.1); SODIUM 136 mmol/L (136-145)
[2022-09-09 08:10] LABS: ALBUMIN 2.9 g/dl (3.4-5.0); ANION GAP 12 MMOL/L (8-16); BLOOD UREA NITROGEN 35.3 mg/dL (7-18); CALCIUM 7.1 mg/dL (8.5-10.1); CO2 27 mmol/L (21-32); GLUCOSE,RANDOM 117 mg/dL (74-106); MAGNESIUM 1.8 mg/dL (1.8-2.4)
[2022-09-09 08:12] LABS: SGOT/AST 22 U/L (15-37); SGPT/ALT 30 U/L (13-61)
[2022-09-09 08:14] LABS: BILIRUBIN,TOTAL 1.5 mg/dL (0.2-1); PHOSPHOROUS 4.8 mg/dL (2.5-4.9); TOT PROT 6.8 g/dl (6.4-8.2)
[2022-09-09 08:15] LABS: ALK PHOS 69 U/L (45-117)
[2022-09-09 08:23] LABS: CREATININE 11.4 mg/dL (0.55-1.3)
[2022-09-09] MEDS: RUXOLITINIB PHOSPHATE TP SCH (10:00)
[2022-09-09] MEDS: amLODIPine BESYLATE 5 MG TABLET (FP) PO SCH (12:50)
[2022-09-09] MEDS: CINACALCET HCL 30 MG TAB (FP) PO SCH (12:54)
[2022-09-09] MEDS ORDERED: LINEZOLID 600 MG TABLET (RESTRICTED TO ID) PO SCH ×2 (14:34→22:00)
[2022-09-09] MEDS: LINEZOLID 600 MG TABLET (RESTRICTED TO ID) PO SCH ×2 (15:26→21:52)
[2022-09-09] MEDS ORDERED: MEROPENEM 1 GM in DEXTROSE 5%-WATER 100 ML IVPB SCH (18:00)
[2022-09-09] MEDS: ATORVASTATIN CA 10 MG TABLET (FP) PO SCH (21:49)
[2022-09-09] MEDS: MELATONIN 5 MG TABLETS PO PRN (21:56)
[2022-09-10] MEDS: VANCOMYCIN 250 MG/5 ML ORAL SOLUTION PO SCH ×6 (00:41→23:05)
[2022-09-10] MEDS: ACETAMINOPHEN 500 MG TABLET (FP) PO SCH ×3 (05:00→21:26)
[2022-09-10] MEDS: HEPARIN NA (PORCINE) 5,000 UNITS/ML 1ML VIAL SQ SCH ×3 (06:41→21:26)
[2022-09-10] MEDS: METOPROLOL TARTRATE 50 MG TABLET (FP) PO SCH ×4 (06:43→21:26)
[2022-09-10] MEDS: INSULIN SLIDING SCALE (NOVOLOG) 1 VIAL SQ SCH ×4 (06:44→16:57)
[2022-09-10 08:24] LABS: BASO % 0.2 % (0-2.0); EOS % 6.5 % (0-4.5); HEMATOCRIT 29.9 % (35.4-49); HEMOGLOBIN 10.6 GM/dL (11.7-16.9); LYMPH % 11.6 % (8-40); MCH 34.1 pg (25.7-33.7); MCHC 35.4 g/dl (32.0-35.9); MEAN CELL VOLUME 96.5 fl (80-96); MEAN PLT VOLUME 8.6 fl (7.5-11.1); MONO % 11.6 % (3.8-10.2); NEUT % 70.1 % (42.8-82.8); PLATELET COUNT 168 10^3/uL (134-434); RDW 15.3 % (11.9-15.9); WHITE BLOOD COUNT 9.9 K/mm3 (4.0-10.0)
[2022-09-10 08:35] LABS: CHLORIDE 98 mmol/L (98-107); POTASSIUM 3.5 mmol/L (3.5-5.1); SODIUM 136 mmol/L (136-145)
[2022-09-10 08:41] LABS: ANION GAP 9 MMOL/L (8-16); BLOOD UREA NITROGEN 28.6 mg/dL (7-18); CALCIUM 7.2 mg/dL (8.5-10.1); CO2 29 mmol/L (21-32); GLUCOSE,RANDOM 151 mg/dL (74-106); MAGNESIUM 1.9 mg/dL (1.8-2.4)
[2022-09-10 08:43] LABS: SGPT/ALT 30 U/L (13-61)
[2022-09-10 08:44] LABS: SGOT/AST 25 U/L (15-37)
[2022-09-10 08:45] LABS: BILIRUBIN,TOTAL 0.4 mg/dL (0.2-1); TOT PROT 7.2 g/dl (6.4-8.2)
[2022-09-10 08:46] LABS: ALK PHOS 67 U/L (45-117)
[2022-09-10 09:05] LABS: CREATININE 8.5 mg/dL (0.55-1.3)
[2022-09-10] MEDS: CINACALCET HCL 30 MG TAB (FP) PO SCH (10:33)
[2022-09-10] MEDS: LINEZOLID 600 MG TABLET (RESTRICTED TO ID) PO SCH ×2 (10:33→21:55)
[2022-09-10] MEDS: amLODIPine BESYLATE 5 MG TABLET (FP) PO SCH (10:33)
[2022-09-10] MEDS: ACETAMINOPHEN 1000 MG/100 ML BAG IVPB SCH (10:59)
[2022-09-10] MEDS: RUXOLITINIB PHOSPHATE TP SCH (11:24)
[2022-09-10] MEDS ORDERED: SCOPOLAMINE HYDROBROMIDE 1 PATCH PATCH.TD72 TD SCH (12:45)
[2022-09-10] MEDS: MEROPENEM 500 MG in DEXTROSE 5%-WATER 100 ML IVPB SCH ×2 (14:35→15:24)
[2022-09-10] MEDS: SIMETHICONE 80 MG TAB.CHEW (FP) PO PRN (14:36)
[2022-09-10] MEDS ORDERED: INSULIN (NOVOLOG) ASPART 100 UNITS/ML 10ML VIAL ONE (17:37)
[2022-09-10] MEDS: ATORVASTATIN CA 10 MG TABLET (FP) PO SCH (21:26)
[2022-09-10] MEDS: MELATONIN 5 MG TABLETS PO PRN (21:26)
[2022-09-11] MEDS: ACETAMINOPHEN 500 MG TABLET (FP) PO SCH (05:38)
[2022-09-11] MEDS: HEPARIN NA (PORCINE) 5,000 UNITS/ML 1ML VIAL SQ SCH ×3 (05:39→21:26)
[2022-09-11] MEDS: METOPROLOL TARTRATE 50 MG TABLET (FP) PO SCH ×3 (05:39→21:25)
[2022-09-11] MEDS: SIMETHICONE 80 MG TAB.CHEW (FP) PO PRN ×2 (05:46→21:30)
[2022-09-11] MEDS: INSULIN SLIDING SCALE (NOVOLOG) 1 VIAL SQ SCH ×3 (06:07→17:29)
[2022-09-11] MEDS: VANCOMYCIN 250 MG/5 ML ORAL SOLUTION PO SCH ×3 (06:43→17:30)
[2022-09-11 08:59] LABS: BASO % 0.6 % (0-2.0); EOS % 9.6 % (0-4.5); HEMATOCRIT 28.4 % (35.4-49); LYMPH % 22.5 % (8-40); MCH 33.8 pg (25.7-33.7); MCHC 35.1 g/dl (32.0-35.9); MEAN CELL VOLUME 96.2 fl (80-96); MEAN PLT VOLUME 8.8 fl (7.5-11.1); MONO % 8.9 % (3.8-10.2); NEUT % 58.4 % (42.8-82.8); PLATELET COUNT 191 10^3/uL (134-434); RBC 2.95 M/mm3 (4.00-5.60); RDW 14.9 % (11.9-15.9); WHITE BLOOD COUNT 7.4 K/mm3 (4.0-10.0)
[2022-09-11] MEDS ORDERED: SODIUM CHLORIDE 250 ML IV PRN (09:00)
[2022-09-11 09:13] LABS: CHLORIDE 98 mmol/L (98-107); POTASSIUM 3.3 mmol/L (3.5-5.1); SODIUM 137 mmol/L (136-145)
[2022-09-11 09:16] LABS: ALBUMIN 2.8 g/dl (3.4-5.0); ANION GAP 9 MMOL/L (8-16); CALCIUM 7.4 mg/dL (8.5-10.1); CO2 29 mmol/L (21-32); GLUCOSE,RANDOM 158 mg/dL (74-106)
[2022-09-11 09:19] LABS: SGOT/AST 24 U/L (15-37); SGPT/ALT 28 U/L (13-61)
[2022-09-11 09:21] LABS: BILIRUBIN,TOTAL 0.3 mg/dL (0.2-1); TOT PROT 6.9 g/dl (6.4-8.2)
[2022-09-11 09:22] LABS: ALK PHOS 64 U/L (45-117)
[2022-09-11] MEDS ORDERED: EPOETIN ALFA-EPBX 4,000 UNIT/ML VIAL SQ ONE (09:30)
[2022-09-11 09:47] LABS: CREATININE 9.6 mg/dL (0.55-1.3)
[2022-09-11] MEDS: amLODIPine BESYLATE 5 MG TABLET (FP) PO SCH (10:39)
[2022-09-11] MEDS: RUXOLITINIB PHOSPHATE TP SCH (10:39)
[2022-09-11] MEDS: MEROPENEM 500 MG in DEXTROSE 5%-WATER 100 ML IVPB SCH ×2 (10:39→11:59)
[2022-09-11] MEDS: CINACALCET HCL 30 MG TAB (FP) PO SCH (10:39)
[2022-09-11] MEDS ORDERED: POTASSIUM CHLORIDE TABS 20 MEQ TABLET.ER (FP) PO ONE (10:43)
[2022-09-11] MEDS: LINEZOLID 600 MG TABLET (RESTRICTED TO ID) PO SCH ×2 (14:17→22:31)
[2022-09-11] MEDS: ATORVASTATIN CA 10 MG TABLET (FP) PO SCH (21:25)
[2022-09-11] MEDS: MELATONIN 5 MG TABLETS PO PRN (21:30)
[2022-09-12] MEDS: VANCOMYCIN 250 MG/5 ML ORAL SOLUTION PO SCH ×3 (00:37→11:23)
[2022-09-12] MEDS: HEPARIN NA (PORCINE) 5,000 UNITS/ML 1ML VIAL SQ SCH ×2 (05:49→13:44)
[2022-09-12] MEDS: METOPROLOL TARTRATE 50 MG TABLET (FP) PO SCH ×2 (05:50→13:44)
[2022-09-12] MEDS: INSULIN SLIDING SCALE (NOVOLOG) 1 VIAL SQ SCH ×2 (06:46→11:27)
[2022-09-12 08:44] LABS: BASO % 0.9 % (0-2.0); EOS % 8.7 % (0-4.5); HEMOGLOBIN 10.4 GM/dL (11.7-16.9); LYMPH % 22.5 % (8-40); MCH 33.3 pg (25.7-33.7); MCHC 34.7 g/dl (32.0-35.9); MEAN PLT VOLUME 8.1 fl (7.5-11.1); MONO % 12.1 % (3.8-10.2); NEUT % 55.8 % (42.8-82.8); PLATELET COUNT 221 10^3/uL (134-434); RBC 3.12 M/mm3 (4.00-5.60); RDW 15.2 % (11.9-15.9); WHITE BLOOD COUNT 7.9 K/mm3 (4.0-10.0)
[2022-09-12 09:05] LABS: POTASSIUM 3.8 mmol/L (3.5-5.1)
[2022-09-12 09:12] LABS: ALBUMIN 3.1 g/dl (3.4-5.0); CALCIUM 8.2 mg/dL (8.5-10.1); MAGNESIUM 1.9 mg/dL (1.8-2.4)
[2022-09-12] MEDS: amLODIPine BESYLATE 5 MG TABLET (FP) PO SCH (09:12)
[2022-09-12] MEDS: MEROPENEM 500 MG in DEXTROSE 5%-WATER 100 ML IVPB SCH ×3 (09:12→13:37)
[2022-09-12 09:13] LABS: BLOOD UREA NITROGEN 23.4 mg/dL (7-18)
[2022-09-12] MEDS: LINEZOLID 600 MG TABLET (RESTRICTED TO ID) PO SCH (09:13)
[2022-09-12] MEDS: CINACALCET HCL 30 MG TAB (FP) PO SCH (09:14)
[2022-09-12 09:16] LABS: CREATININE 6.6 mg/dL (0.55-1.3)
[2022-09-12] MEDS: RUXOLITINIB PHOSPHATE TP SCH (09:16)
[2022-09-12 09:17] LABS: BILIRUBIN,TOTAL 0.4 mg/dL (0.2-1); TOT PROT 7.3 g/dl (6.4-8.2)
[2022-09-12] MEDS ORDERED: oxyCODONE HCL 5 MG TABLET PO ONE (09:53)
[2022-09-12 12:15] VITALS: RESP 18
[2022-09-12 15:20] VITALS: BP 139/68; PULSE 67; TEMP 97.7
== END 2022-09-12 15:14 | disposition home health service (06) | DRG 329 ==
LOC: JER 16:53 → UNDOADMOB 22:17 → INTOOBSV 22:17 → JERBED 22:17 → INTOOBSV 23:37 → OBSVTOIN 23:37 → JERBED 08-27 00:56 → J5S 08-27 01:04 → JERBED 08-27 01:04 → J5S 08-30 10:10 → OBSVTOIN 09-01 10:44 → J2C 09-07 13:45 → JICU 09-07 21:36 → J8W 09-08 17:08
PROVIDERS: ADMIT Internal Medicine; ATTEND Nurse Practitioner Acute Care
PROC: 0DJD8ZZ Inspection of Lower Intestinal Tract, Via Natural or Artificial Opening Endoscopic (ICD-10-PCS; 2022-09-07)
PROC: 0T9B80Z Drainage of Bladder with Drainage Device, Via Natural or Artificial Opening Endoscopic (ICD-10-PCS; 2022-09-07)
PROC: 8E0W4CZ Robotic Assisted Procedure of Trunk Region, Percutaneous Endoscopic Approach (ICD-10-PCS; 2022-09-07)
PROC: 0DTN4ZZ Resection of Sigmoid Colon, Percutaneous Endoscopic Approach (ICD-10-PCS; principal; 2022-09-07 11:30)
PROC: 0D1 Gastrointestinal System, Bypass (ICD-10-PCS; 2022-09-07 11:30)
DX: K57.20 Diverticulitis of large intestine with perforation and abscess without bleeding (principal); N18.6 End stage renal disease; I13.2 Hypertensive heart and chronic kidney disease with heart failure and with stage 5 chronic kidney disease, or end stage renal disease; I50.32 Chronic diastolic (congestive) heart failure; Z68.41 Body mass index [BMI] 40.0-44.9, adult; A04.72 Enterocolitis due to Clostridium difficile, not specified as recurrent; E11.22 Type 2 diabetes mellitus with diabetic chronic kidney disease; Z99.2 Dependence on renal dialysis; E66.01 Morbid (severe) obesity due to excess calories; K57.90 Diverticulosis of intestine, part unspecified, without perforation or abscess without bleeding; K59.00 Constipation, unspecified; N25.0 Renal osteodystrophy; L30.8 Other specified dermatitis; G47.33 Obstructive sleep apnea (adult) (pediatric); J44.9 Chronic obstructive pulmonary disease, unspecified; E87.6 Hypokalemia; Z85.46 Personal history of malignant neoplasm of prostate; Z85.51 Personal history of malignant neoplasm of bladder
CPT/HCPCS: 0241U-QW; 36415; 71045-TC-FY; 74176-TC; 74177-TC; 80048; 80053; 80061; 82803; 82962; 83735; 83880; 84100; 84484; 85025; 85027; 85610; 85730; 86140; 86803; 86850; 86900; 86901; 87070; 87186; 87205; 87324; 87340; 87449; 87522; 88307-TC; 93005; 93010; 94640; 94660; 94760; 97116-GP; 97162-GP; 99285-25; G0378; J1644; Q5106

== ENCOUNTER 2023-09-02 13:02 | Observation (INO) | payer OTHER ==
[2023-09-02 13:14] VITALS: BMI 41.5
[2023-09-02 14:47] LABS: BASO % 0.9 % (0-2.0); EOS % 3.3 % (0-4.5); HEMATOCRIT 35.5 % (35.4-49); HEMOGLOBIN 12.2 GM/dL (11.7-16.9); LYMPH % 22.7 % (8-40); MCH 33.5 pg (25.7-33.7); MCHC 34.4 g/dl (32.0-35.9); MEAN CELL VOLUME 97.4 fl (80-96); MEAN PLT VOLUME 7.8 fl (7.5-11.1); MONO % 10.5 % (3.8-10.2); NEUT % 62.6 % (42.8-82.8); PLATELET COUNT 208 10^3/uL (134-434); RBC 3.64 M/mm3 (4.00-5.60); RDW 15.3 % (11.9-15.9); WHITE BLOOD COUNT 8.9 K/mm3 (4.0-10.0)
[2023-09-02 14:52] LABS: INR 1.62 (0.83-1.09); PROTHROMBIN TIME (PATIENT) 18.1 SEC (9.7-13.0)
[2023-09-02 14:55] LABS: ACTIVATED PTT 46.3 SECONDS (25.2-36.5)
[2023-09-02 15:01] LABS: POTASSIUM 3.7 mmol/L (3.5-5.1)
[2023-09-02 15:03] LABS: ALBUMIN 3.9 g/dl (3.4-5.0); BLOOD UREA NITROGEN 30.6 mg/dL (7-18); CALCIUM 9.8 mg/dL (8.5-10.1); MAGNESIUM 1.9 mg/dL (1.8-2.4)
[2023-09-02 15:06] LABS: CREATININE 4.3 mg/dL (0.55-1.3); PHOSPHOROUS 2.4 mg/dL (2.5-4.9)
[2023-09-02 15:08] LABS: BILIRUBIN,TOTAL 0.4 mg/dL (0.2-1); TOT PROT 8.2 g/dl (6.4-8.2)
[2023-09-02 15:11] LABS: N-TERMINAL BNP 436.8 pg/ml (5-125)
[2023-09-02] MEDS ORDERED: ACETAMINOPHEN 325 MG TABLET (FP) ONE ×2 (17:02→17:03)
[2023-09-02] MEDS: ACETAMINOPHEN 325 MG TABLET (FP) PO ONE (17:04)
[2023-09-02] MEDS ORDERED: SODIUM CHLORIDE 250 ML IV PRN (17:34)
[2023-09-02] MEDS ORDERED: SIMETHICONE 80 MG TAB.CHEW (FP) PO PRN (17:49)
[2023-09-02] MEDS ORDERED: HYDROCORTISONE 0.5% TOPICAL CREAM 30 GM TUBE TP PRN (17:49)
[2023-09-02] MEDS ORDERED: oxyCODONE HCL 5 MG TABLET PO PRN (17:49)
[2023-09-02] MEDS: FUROSEMIDE 40 MG/4 ML INJECTABLE VIAL IVPUSH ONE (17:50)
[2023-09-02] MEDS ORDERED: FUROSEMIDE 40 MG/4 ML INJECTABLE VIAL ONE (17:51)
[2023-09-02] MEDS ORDERED: NIFEdipine E.R. 30 MG TABLET PO ONE (18:09)
[2023-09-02] MEDS: NIFEdipine E.R. 30 MG TABLET PO SCH (18:12)
[2023-09-02] MEDS: SCOPOLAMINE HYDROBROMIDE 1 PATCH PATCH.TD72 TD SCH (18:55)
[2023-09-02] MEDS: APIXABAN 2.5 MG TABLET PO SCH (21:25)
[2023-09-02] MEDS: ATORVASTATIN CA 10 MG TABLET (FP) PO SCH (21:26)
[2023-09-02] MEDS: METOPROLOL TARTRATE 50 MG TABLET (FP) PO SCH (21:26)
[2023-09-03] MEDS: CALCIUM ACETATE 667 MG CAPSULE (FP) PO SCH (08:24)
[2023-09-03 09:53] LABS: HEMATOCRIT 33.7 % (35.4-49); HEMOGLOBIN 11.5 GM/dL (11.7-16.9); MCH 33.6 pg (25.7-33.7); MCHC 34.2 g/dl (32.0-35.9); MEAN CELL VOLUME 98.2 fl (80-96); MEAN PLT VOLUME 8.1 fl (7.5-11.1); PLATELET COUNT 210 10^3/uL (134-434); RBC 3.43 M/mm3 (4.00-5.60); RDW 15.6 % (11.9-15.9); WHITE BLOOD COUNT 8.1 K/mm3 (4.0-10.0)
[2023-09-03] MEDS ORDERED: PATIENT'S OWN MEDICATION (NON-FORMULARY) (Linagliptin [Tradjenta] 5 MG Tablet) PO SCH (10:00)
[2023-09-03 10:09] LABS: CALCIUM 9.2 mg/dL (8.5-10.1)
[2023-09-03 10:10] LABS: BLOOD UREA NITROGEN 37.1 mg/dL (7-18)
[2023-09-03 10:13] LABS: CREATININE 4.7 mg/dL (0.55-1.3)
[2023-09-03] MEDS: FUROSEMIDE 40 MG TABLET (FP) PO SCH (11:00)
[2023-09-03] MEDS: CINACALCET HCL 30 MG TAB (FP) PO SCH (12:39)
[2023-09-03] MEDS: INSULIN ASPART SLIDING SCALE (NOVOLOG) 1 VIAL SQ SCH (17:43)
[2023-09-03] MEDS: MELATONIN 5 MG TABLETS PO PRN (21:17)
[2023-09-04 06:03] LABS: BASO % 1.1 % (0-2.0); EOS % 3.1 % (0-4.5); HEMOGLOBIN 11.3 GM/dL (11.7-16.9); LYMPH % 24.5 % (8-40); MCH 32.7 pg (25.7-33.7); MCHC 33.3 g/dl (32.0-35.9); MEAN CELL VOLUME 98.2 fl (80-96); MEAN PLT VOLUME 7.4 fl (7.5-11.1); MONO % 11.8 % (3.8-10.2); NEUT % 59.5 % (42.8-82.8); PLATELET COUNT 180 10^3/uL (134-434); RBC 3.46 M/mm3 (4.00-5.60); RDW 15.5 % (11.9-15.9); WHITE BLOOD COUNT 8.9 K/mm3 (4.0-10.0)
[2023-09-04 06:22] LABS: CALCIUM 8.4 mg/dL (8.5-10.1)
[2023-09-04 06:23] LABS: BLOOD UREA NITROGEN 39.9 mg/dL (7-18)
[2023-09-04 06:26] LABS: CREATININE 5.7 mg/dL (0.55-1.3)
[2023-09-04 12:55] VITALS: BP 133/67; PULSE 67; RESP 17; TEMP 98.4
== END 2023-09-04 11:40 | disposition home or self-care (01) ==
LOC: JER 13:02 → JERBED 13:43 → J4S 20:31
PROVIDERS: ADMIT Internal Medicine; ATTEND Internal Medicine
PROC: 3E033GC Introduction of Other Therapeutic Substance into Peripheral Vein, Percutaneous Approach (ICD-10-PCS; principal; 2023-09-02)
DX: J44.9 Chronic obstructive pulmonary disease, unspecified (principal); E11.9 Type 2 diabetes mellitus without complications; N18.6 End stage renal disease; Z99.2 Dependence on renal dialysis; E66.01 Morbid (severe) obesity due to excess calories; K57.92 Diverticulitis of intestine, part unspecified, without perforation or abscess without bleeding; Z68.41 Body mass index [BMI] 40.0-44.9, adult; K59.00 Constipation, unspecified; D64.9 Anemia, unspecified; M19.90 Unspecified osteoarthritis, unspecified site; Z87.891 Personal history of nicotine dependence
CPT/HCPCS: 0241U-QW; 36415; 71045-TC-FY; 80048; 80053; 82962; 83735; 83880; 84100; 84484; 85025; 85027; 85610; 85730; 86803; 87340; 87522; 93005; 93010; 96374; 99285-25; G0378

== ENCOUNTER 2024-05-19 10:12 | Observation (INO) | payer OTHER ==
[2024-05-19] MEDS ORDERED: LIDOCAINE 5% TOPICAL PATCH ONE (11:29)
[2024-05-19 12:02] LABS: BASO % 1.1 % (0-2.0); EOS % 2.8 % (0-4.5); HEMATOCRIT 36.6 % (35.4-49); HEMOGLOBIN 12.3 GM/dL (11.7-16.9); LYMPH % 25.2 % (8-40); MCH 31.5 pg (25.7-33.7); MCHC 33.5 g/dl (32.0-35.9); MEAN PLT VOLUME 8.3 fl (7.5-11.1); MONO % 9.7 % (3.8-10.2); NEUT % 61.2 % (42.8-82.8); PLATELET COUNT 217 10^3/uL (134-434); RBC 3.89 M/mm3 (4.00-5.60); RDW 15.8 % (11.9-15.9); WHITE BLOOD COUNT 7.7 K/mm3 (4.0-10.0)
[2024-05-19] MEDS: LIDOCAINE 5% TOPICAL PATCH TP ONE (12:16)
[2024-05-19] MEDS ORDERED: CYCLOBENZAPRINE HCL 5 MG TABLET ONE (12:41)
[2024-05-19 12:45] LABS: CALCIUM 9.5 mg/dL (8.5-10.1)
[2024-05-19] MEDS: CYCLOBENZAPRINE HCL 5 MG TABLET PO ONE (12:45)
[2024-05-19 12:46] LABS: ALBUMIN 3.6 g/dl (3.4-5.0); MAGNESIUM 1.8 mg/dL (1.8-2.4)
[2024-05-19 12:49] LABS: CREATININE 6.1 mg/dL (0.55-1.3); PHOSPHOROUS 4.6 mg/dL (2.5-4.9)
[2024-05-19 12:50] LABS: BILIRUBIN,TOTAL 0.4 mg/dL (0.2-1)
[2024-05-19 12:51] LABS: TOT PROT 7.8 g/dl (6.4-8.2)
[2024-05-19 13:15] LABS: HIV INTERPRETATION NEGATIVE (NEGATIVE)
[2024-05-19] MEDS ORDERED: SODIUM CHLORIDE 250 ML IV PRN (15:22)
[2024-05-19] MEDS: methylPREDNISolone 8 MG TABLET PO SCH (19:06)
[2024-05-19] MEDS: ATORVASTATIN CA 10 MG TABLET (FP) PO SCH (21:57)
[2024-05-19] MEDS: APIXABAN 2.5 MG TABLET PO SCH (21:57)
[2024-05-19] MEDS: METOPROLOL TARTRATE 50 MG TABLET (FP) PO SCH (21:57)
[2024-05-19] MEDS: CYCLOBENZAPRINE HCL 5 MG TABLET PO SCH (21:57)
[2024-05-19] MEDS: LIDOCAINE PATCH REMOVAL MC SCH (21:58)
[2024-05-19] MEDS: INSULIN ASPART SLIDING SCALE (NOVOLOG) 1 VIAL SQ SCH (21:59)
[2024-05-19] MEDS: INSULIN (LEVEMIR) 100 UNITS/ML UNITS SQ SCH (22:00)
[2024-05-20] MEDS: methylPREDNISolone 4 MG TABLET PO SCH (00:40)
[2024-05-20 01:20] VITALS: BMI 38.7
[2024-05-20 08:53] LABS: BASO % 0.6 % (0-2.0); EOS % 0.8 % (0-4.5); HEMATOCRIT 38.6 % (35.4-49); HEMOGLOBIN 13.3 GM/dL (11.7-16.9); LYMPH % 13.4 % (8-40); MCH 32.2 pg (25.7-33.7); MCHC 34.3 g/dl (32.0-35.9); MEAN CELL VOLUME 93.7 fl (80-96); MEAN PLT VOLUME 8.1 fl (7.5-11.1); MONO % 4.4 % (3.8-10.2); NEUT % 80.8 % (42.8-82.8); PLATELET COUNT 226 10^3/uL (134-434); RBC 4.12 M/mm3 (4.00-5.60); RDW 15.9 % (11.9-15.9); WHITE BLOOD COUNT 9.2 K/mm3 (4.0-10.0)
[2024-05-20] MEDS: NIFEdipine E.R. 30 MG TABLET PO SCH (09:17)
[2024-05-20] MEDS: FUROSEMIDE 40 MG TABLET (FP) PO SCH (09:17)
[2024-05-20] MEDS: ASPIRIN COATED 81 MG TABLET.EC PO SCH (09:17)
[2024-05-20] MEDS: CINACALCET HCL 30 MG TAB (FP) PO SCH (09:17)
[2024-05-20 09:18] LABS: CALCIUM 10.1 mg/dL (8.5-10.1)
[2024-05-20 09:19] LABS: BLOOD UREA NITROGEN 40.5 mg/dL (7-18)
[2024-05-20 09:22] LABS: CREATININE 5.8 mg/dL (0.55-1.3)
[2024-05-20] MEDS ORDERED: amLODIPine BESYLATE 5 MG TABLET (FP) PO SCH (10:00)
[2024-05-20] MEDS: ACETAMINOPHEN 325 MG TABLET (FP) PO SCH (12:24)
[2024-05-20] MEDS: oxyCODONE HCL 5 MG TABLET PO PRN (14:52)
[2024-05-20 18:42] VITALS: RESP 18
[2024-05-20] MEDS: UMECLIDINIUM/VILANTEROL (ANORO) 62.5/25 MCG INHALER IH SCH (18:57)
[2024-05-21 10:49] LABS: BASO % 0.7 % (0-2.0); EOS % 1.5 % (0-4.5); HEMATOCRIT 35.9 % (35.4-49); HEMOGLOBIN 12.2 GM/dL (11.7-16.9); LYMPH % 15.1 % (8-40); MCH 32.2 pg (25.7-33.7); MEAN CELL VOLUME 94.7 fl (80-96); MEAN PLT VOLUME 8.1 fl (7.5-11.1); MONO % 9.7 % (3.8-10.2); PLATELET COUNT 216 10^3/uL (134-434); RBC 3.79 M/mm3 (4.00-5.60); RDW 15.6 % (11.9-15.9); WHITE BLOOD COUNT 13.4 K/mm3 (4.0-10.0)
[2024-05-21 11:16] LABS: CHLORIDE 97 mmol/L (98-107); POTASSIUM 3.5 mmol/L (3.5-5.1); SODIUM 136 mmol/L (136-145)
[2024-05-21 11:18] LABS: ALBUMIN 3.6 g/dl (3.4-5.0); ANION GAP 13 mmol/L (4-13); CALCIUM 8.8 mg/dL (8.5-10.1); CO2 26 mmol/L (21-32); GLUCOSE,RANDOM 214 mg/dL (74-106); MAGNESIUM 1.7 mg/dL (1.8-2.4)
[2024-05-21 11:20] LABS: SGPT/ALT 26 U/L (13-61)
[2024-05-21 11:21] LABS: CREATININE 7.7 mg/dL (0.55-1.3); SGOT/AST 18 U/L (15-37)
[2024-05-21 11:22] LABS: BILIRUBIN,TOTAL 0.3 mg/dL (0.2-1); TOT PROT 7.6 g/dl (6.4-8.2)
[2024-05-21 11:23] LABS: ALK PHOS 83 U/L (45-117)
[2024-05-21 12:10] VITALS: BP 131/77; PULSE 77; TEMP 98.4
== END 2024-05-21 14:35 | disposition home or self-care (01) ==
LOC: JER 10:12 → JERBED 13:42 → J7W 15:40
PROVIDERS: ADMIT Internal Medicine
PROC: 3E023GC Introduction of Other Therapeutic Substance into Muscle, Percutaneous Approach (ICD-10-PCS; principal; 2024-05-19)
PROC: 3E033NZ Introduction of Analgesics, Hypnotics, Sedatives into Peripheral Vein, Percutaneous Approach (ICD-10-PCS; 2024-05-19)
PROC: 3E0337Z Introduction of Electrolytic and Water Balance Substance into Peripheral Vein, Percutaneous Approach (ICD-10-PCS; 2024-05-19)
DX: M54.50 Low back pain, unspecified (principal); M19.09 Primary osteoarthritis, other specified site; I12.0 Hypertensive chronic kidney disease with stage 5 chronic kidney disease or end stage renal disease; E11.22 Type 2 diabetes mellitus with diabetic chronic kidney disease; N18.6 End stage renal disease; Z99.2 Dependence on renal dialysis; J44.9 Chronic obstructive pulmonary disease, unspecified; K57.90 Diverticulosis of intestine, part unspecified, without perforation or abscess without bleeding; Z85.46 Personal history of malignant neoplasm of prostate; Z85.51 Personal history of malignant neoplasm of bladder; K59.00 Constipation, unspecified; D64.9 Anemia, unspecified; M19.90 Unspecified osteoarthritis, unspecified site; Z79.01 Long term (current) use of anticoagulants; Z96.641 Presence of right artificial hip joint; Z90.79 Acquired absence of other genital organ(s); Z87.891 Personal history of nicotine dependence; I50.30 Unspecified diastolic (congestive) heart failure; L30.9 Dermatitis, unspecified; E66.9 Obesity, unspecified
CPT/HCPCS: 36415; 72131-TC; 80048; 80053; 82962; 83735; 84100; 85025; 86803; 87340; 87389; 87522; 93005; 93010; 97116-GP; 97162-GP; 99285-25; G0378